=== PATIENT | female | born 1990 | race Caucasian/White ===

== ENCOUNTER 2018-10-16 13:58 | Emergency (ER) | payer SELFPAY ==
[~2018-10-16] VITALS: Ht 170.2 cm; Wt 77.1 kg
--- OUTSIDE RECORDS SUMMARY | 2018-10-16 14:04 | XMS REPORT ---
Author Author Carmen Jeff Organization [facility] Address [address] [place], [place] [address] Care Team Providers Care Finishing Range Feeder Name Role Phone Carmen Jeff PCP Unavailable Allergies and Adverse Reactions Name Reaction Notes No known drug allergy Plan of Treatment Not available. Medications Active Name Start Date Estimated Completion Date SIG Comments amoxicillin 500 mg oral tablet 05/14/2015 05/24/2015 take 2 tablet by oral route 2 times a day for 10 days albuterol sulfate 2.5 mg /3 mL (0.083 %) inhalation solution for nebulization 05/14/2015 05/28/2015 inhale 3 milliliters (2.5 mg) by nebulization route every 6 hours for 7 days Name Start Date Expiration Date SIG Comments azithromycin 500 mg oral tablet 04/05/2015 04/08/2015 take 1 tablet (500 mg) by oral route once daily for 3 days codeine-guaifenesin 10-100 mg/5 mL oral liquid 04/05/2015 take 10 milliliters by oral route every 4 hours as needed Problem List Not available. Vital Signs Date Time BP-Sys(mm[Hg] BP-Rowan(mm[Hg]) HR(bpm) RR(rpm) Temp WT HT HC BMI BSA BMI Percentile O2 Sat(%) 05/14/2015 3:01:00 PM 140 mmHg 90 mmHg 106 bpm 18 rpm 99.1 F 168.125 lbs 67 in 26.33 kg/m2 1.90 m2 98 % 04/05/2015 11:54:00 AM 120 mmHg 80 mmHg 100 bpm 18 rpm 98.4 F 164.375 lbs 67 in 25.7445 kg/m 1.8774 m 97 % Social History Name Description Comments Tobacco Former smoker was an occasional smoker Alcohol Former occassionally drank in the past Caffeine Current every day 2 cups/glass per day History of Procedures Not available. Results Summary Not available. History Of Immunizations Not available. History of Past Illness Name Date of Onset Comments Anxiety Asthma Acute bacterial rhinosinusitis May 14 2015 3:03PM Payers Not available. History of Encounters Visit Date Visit Type Provider 05/14/2015 Office visit Carmen Jeff APRN 04/05/2015 Office visit Mrevat Dumont APRN
--- OUTSIDE RECORDS SUMMARY | 2018-10-16 14:04 | XMS REPORT ---
Author Author Carmen Jeff Organization [facility] Address [address] [place], [place] [address] Care Team Providers Care Atomic Fuel Assembler Name Role Phone Carmen Jeff PCP Unavailable Allergies and Adverse Reactions Name Reaction Notes No known drug allergy Plan of Treatment Planned Activity Comments Planned Date Planned Time Plan/Goal URINE TEST 05/26/2015 12:00 AM Medications Active Name Start Date Estimated Completion Date SIG Comments Keflex 500 mg oral capsule 05/26/2015 06/05/2015 take 1 capsule by oral route every 8 hours for 10 days prednisone 20 mg oral tablet 05/26/2015 06/02/2015 take 1 tablet (20 mg) by oral route 3 times per day for 7 days montelukast 10 mg oral tablet 05/26/2015 11/22/2015 take 1 tablet (10 mg) by oral route once daily in the evening for 30 days albuterol sulfate 2.5 mg /3 mL (0.083 %) inhalation solution for nebulization 05/26/2015 06/09/2015 inhale 3 milliliters (2.5 mg) by nebulization route every 6 hours for 7 days Name Start Date Expiration Date SIG Comments azithromycin 500 mg oral tablet 04/05/2015 04/08/2015 take 1 tablet (500 mg) by oral route once daily for 3 days codeine-guaifenesin 10-100 mg/5 mL oral liquid 04/05/2015 take 10 milliliters by oral route every 4 hours as needed amoxicillin 500 mg oral tablet 05/14/2015 05/24/2015 take 2 tablet by oral route 2 times a day for 10 days Problem List Not available. Vital Signs Date Time BP-Sys(mm[Hg] BP-Rowan(mm[Hg]) HR(bpm) RR(rpm) Temp WT HT HC BMI BSA BMI Percentile O2 Sat(%) 05/29/2015 4:45:00 PM 117 mmHg 83 mmHg 87 bpm 20 rpm 98 F 170 lbs 97 % 05/26/2015 4:43:00 PM 120 mmHg 80 mmHg 85 bpm 18 rpm 99.2 F 169.4 lbs 67 in 26.5315 kg/m 1.9059 m 96 % 05/14/2015 3:01:00 PM 140 mmHg 90 mmHg [...] 2 cups/glass per day History of Procedures Date Ordered Description Order Status 05/26/2015 12:00 AM COMPLETE CBC W/AUTO DIFF WBC Returned 05/26/2015 12:00 AM COMPREHEN METABOLIC PANEL Returned 05/26/2015 12:00 AM CHEST X-RAY 2VW FRONTAL&LATL Returned Results Summary Data and Description Results 05/26/2015 3:23 PM GLUCOSE 101.0 mg/dLSODIUM 138.0 mmol/LPOTASSIUM 3.90 mmol/LCHLORIDE 110.0 mmol/LCO2 19.0 mmol/LBUN 8.0 mg/dLCREATININE 0.70 mg/dLSGOT/AST 15.0 IU/LSGPT/ALT 14.0 IU/LALK PHOS 78.0 IU/LTOTAL PROTEIN 6.70 g/dLALBUMIN 4.30 g/dLTOTAL BILI 0.30 mg/dLCALCIUM 9.40 mg/dLeGFR >60 mL/min/1.73mWBC 8.3 RBC 4.37 HGB 12.60 g/dLHCT 37.60 %MCV 86.0 fLMCH 28.80 pgMCHC 33.50 g/dLRDW CV 14.50 %MPV 10.30 fLPLT 413 %NEUT 41.50 %%LYMP 27.80 %%MONO 8.50 %%EOS 21.20 %%BASO 1.0 %#NEUT 3.45 #LYMP 2.31 #MONO 0.71 #EOS 1.76 #BASO 0.08 History Of Immunizations Not available. History of Past Illness Name Date of Onset Comments Anxiety Asthma Acute bacterial rhinosinusitis May 14 2015 3:03PM Bronchitis, Acute May 26 2015 4:45PM Asthma exacerbation May 26 2015 4:45PM Bronchitis, Acute May 29 2015 4:47PM Asthma exacerbation May 29 2015 4:47PM Cough Apr 05 2015 11:56AM URI (upper respiratory infection) Apr 05 2015 11:56AM Payers Not available. History of Encounters Visit Date Visit Type Provider 05/29/2015 Office visit Carmen Jeff APRN 05/26/2015 Office visit Carmen Jeff APRN 05/14/2015 Office visit Carmen Jeff APRN 04/05/2015 Office visit Mervat Dumont APRN
--- OUTSIDE RECORDS SUMMARY | 2018-10-16 14:04 | XMS REPORT ---
Author Mervat Choi [facility] Address [address] [place], [place] [address] Care Team Providers Care Electrician Underground Name Role Phone Mervat Dumont PCP Unavailable Allergies and Adverse Reactions Name Reaction Notes No known drug allergy Plan of Treatment Planned Activity Comments Planned Date Planned Time Plan/Goal URINE TEST 05/26/2015 12:00 AM Medications Active Name Start Date Estimated Completion Date SIG Comments montelukast 10 mg oral tablet 05/26/2015 11/22/2015 take 1 tablet (10 mg) by oral route once daily in the evening for 30 days codeine-guaifenesin 10-100 mg/5 mL oral liquid 09/20/2015 take 10 milliliters by oral route every 4 hours as needed prednisone 20 mg oral tablet 09/20/2015 Take 2 tablets daily for 5 days albuterol sulfate 2.5 mg /3 mL (0.083 %) inhalation solution for nebulization 09/20/2015 10/04/2015 inhale 3 milliliters (2.5 mg) by nebulization route every 6 hours for 7 days Advair Diskus 250-50 mcg/dose inhalation blister with device 09/20/2015 inhale 1 puff by inhalation route 2 times per day in the morning and evening approximately 12 hours apart Name Start Date Expiration Date SIG Comments [...] 2 times a day for 10 days Keflex 500 mg oral capsule 05/26/2015 06/05/2015 take 1 capsule by oral route every 8 hours for 10 days prednisone 20 mg oral tablet 05/26/2015 06/02/2015 take 1 tablet (20 mg) by oral route 3 times per day for 7 days Problem List Not available. Vital Signs Date Time BP-Sys(mm[Hg] BP-Rowan(mm[Hg]) HR(bpm) RR(rpm) Temp WT HT HC BMI BSA BMI Percentile O2 Sat(%) 09/20/2015 11:20:00 AM 122 mmHg 85 mmHg 102 bpm 20 rpm 97.8 F 160.2 lbs 67 in 25.09 kg/m2 1.85 m2 96 % 05/29/2015 4:45:00 PM 117 mmHg 83 mmHg 87 bpm 20 rpm 98 F 170 lbs 97 % 05/26/2015 4:43:00 PM 120 mmHg 80 mmHg 85 bpm 18 rpm 99.2 F 169.4 lbs 67 in 26.53 kg/m2 1.91 m2 96 % 05/14/2015 3:01:00 PM 140 mmHg 90 mmHg 106 bpm 18 rpm 99.1 F 168.125 lbs 67 in 26.3318 kg/m 1.8987 m 98 % 04/05/2015 11:54:00 AM 120 mmHg 80 mmHg 100 bpm 18 rpm 98.4 F 164.375 lbs 67 in 25.74 kg/m2 1.88 m2 97 % Social History Name Description Comments [...] (upper respiratory infection) Apr 05 2015 11:56AM Acute Asthma Sep 20 2015 11:25AM Cough Sep 20 2015 11:25AM Wheezing Sep 20 2015 11:25AM Payers Not available. History of Encounters Visit Date Visit Type Provider 09/20/2015 Office visit Mervat Dumont APRN 05/29/2015 Office visit Carmen Jeff APRN 05/26/2015 Office visit Carmen Jeff APRN 05/14/2015 Office visit Carmen Jeff APRN 04/05/2015 Office visit Mervat Dumont APRN
--- OUTSIDE RECORDS SUMMARY | 2018-10-16 14:05 | XMS REPORT ---
Author Author Mervat Dumont [facility] Address [address] [place], [place] [address] Care Team Providers Care Driving School Instructor Name Role Phone Mervat Dumont PCP Unavailable [...] oral route every 4 hours as needed albuterol sulfate 2.5 mg /3 mL (0.083 %) inhalation solution for nebulization 10/03/2015 03/31/2016 USE ONE VIAL IN NEBULIZER EVERY 6 HOURS FOR 7 DAYS for 60 days prednisone 20 mg oral tablet 10/18/2015 Take 2 tablets daily for 5 days Breo Ellipta 100-25 mcg/dose inhalation blister with device 10/18/2015 inhale 1 puff by inhalation route once daily at the same time each day Name Start Date Expiration Date SIG Comments [...] 3 times per day for 7 days albuterol sulfate 2.5 mg /3 mL (0.083 %) inhalation solution for nebulization 09/20/2015 10/04/2015 inhale 3 milliliters (2.5 mg) by nebulization route every 6 hours for 7 days Discontinued Name Start Date Discontinued Date SIG Comments Advair Diskus 250-50 mcg/dose inhalation blister with device 09/20/2015 10/18/2015 inhale 1 puff by inhalation route 2 times per day in the morning and evening approximately 12 hours apart Ran out and cannot afford prescription Problem List Description Status Onset Anxiety Active Asthma Active Vital Signs Date Time BP-Sys(mm[Hg] BP-Rowan(mm[Hg]) HR(bpm) RR(rpm) Temp WT HT HC BMI BSA BMI Percentile O2 Sat(%) 10/18/2015 1:53:00 PM 120 mmHg 62 mmHg 94 bpm 22 rpm 97.2 F 158 lbs 67 in 24.75 kg/m2 1.84 m2 95 % 09/20/2015 11:20:00 AM 122 mmHg 85 mmHg 102 bpm 20 rpm 97.8 F 160.2 lbs 67 in 25.0906 kg/m 1.8534 m 96 % 05/29/2015 4:45:00 PM 117 mmHg [...] 2015 11:25AM Wheezing Sep 20 2015 11:25AM Acute Asthma Oct 18 2015 2:02PM Cough Oct 18 2015 2:02PM Wheezing Oct 18 2015 2:02PM Payers Not available. History of Encounters Visit Date Visit Type Provider 10/18/2015 Office visit Mervat Dumont LIGHTING ENGINEER 09/20/2015 Office visit Mervat Dumont LIGHTING ENGINEER 05/29/2015 Office visit Carmen Jeff LIGHTING ENGINEER 05/26/2015 Office visit Carmen Jeff LIGHTING ENGINEER 05/14/2015 Office visit Carmen Jeff LIGHTING ENGINEER 04/05/2015 Office visit Mervat Dumont APRN
--- OUTSIDE RECORDS SUMMARY | 2018-10-16 14:05 | XMS REPORT ---
Author Author Carmen Jeff Organization [facility] Address [address] [place], [place] [address] Care Team Providers Care Tool Keeper Name Role Phone Carmen Jeff PCP Unavailable [...]
--- OUTSIDE RECORDS SUMMARY | 2018-10-16 14:05 | XMS REPORT ---
Author Author Jose Manuel Pace Organization [facility] Address [address] [place], [place] [address] Care Team Providers Care Show Worker Name Role Phone Jose Manuel Pace PCP Unavailable Allergies and Adverse Reactions Name Reaction Notes No known drug allergy Plan of Treatment Planned Activity Comments Planned Date Planned Time Plan/Goal URINE TEST 05/26/2015 12:00 AM Medications Active Name Start Date Estimated Completion Date SIG Comments albuterol sulfate 2.5 mg /3 mL (0.083 %) inhalation solution for nebulization 10/03/2015 03/31/2016 USE ONE VIAL IN NEBULIZER EVERY 6 HOURS FOR 7 DAYS for 60 days Breo Ellipta 100-25 mcg/dose inhalation blister with device 12/01/2015 inhale 1 puff by inhalation route once daily at the same time each day prednisone 20 mg oral tablet 12/01/2015 12/06/2015 take 2 tablets (40 mg) by oral route once daily for 5 days Name Start Date Expiration Date SIG [...] Name Start Date Discontinued Date SIG Comments codeine-guaifenesin 10-100 mg/5 mL oral liquid 09/20/2015 12/01/2015 take 10 milliliters by oral route every 4 hours as needed Advair Diskus 250-50 mcg/dose inhalation blister with device 09/20/2015 10/18/2015 inhale 1 puff by inhalation route 2 times per day in the morning and evening approximately 12 hours apart Ran out and cannot afford prescription prednisone 20 mg oral tablet 10/18/2015 12/01/2015 Take 2 tablets daily for 5 days Problem List Description Status Onset Anxiety Active Asthma Active Vital Signs Date Time BP-Sys(mm[Hg] BP-Rowan(mm[Hg]) HR(bpm) RR(rpm) Temp WT HT HC BMI BSA BMI Percentile O2 Sat(%) 12/01/2015 3:39:00 PM 118 mmHg 70 mmHg 89 bpm 20 rpm 97.6 F 163.2 lbs 67 in 25.56 kg/m2 1.87 m2 97 % 10/18/2015 1:53:00 PM 120 mmHg 62 mmHg 94 bpm 22 rpm 97.2 F 158 lbs 67 in 24.746 kg/m 1.8406 m 95 % 09/20/2015 11:20:00 AM 122 mmHg [...] 2015 2:02PM Wheezing Oct 18 2015 2:02PM Acute asthma Dec 01 2015 3:52PM Cough Dec 01 2015 3:52PM Wheezing Dec 01 2015 3:52PM Payers Not available. History of Encounters Visit Date Visit Type Provider 12/01/2015 Office visit Jose Manuel Pace APRN 10/18/2015 Office visit Mervat Dumont APRN 09/20/2015 Office visit Mervat Dumont APRN 05/29/2015 Office visit Carmen Jeff APRN 05/26/2015 Office visit Carmen Jeff APRN 05/14/2015 Office visit Carmen Jeff APRN 04/05/2015 Office visit Mervat Dumont APRN
--- OUTSIDE RECORDS SUMMARY | 2018-10-16 14:05 | XMS REPORT ---
Author Author Jose Manuel Pace Organization [facility] Address [address] [place], [place] [address] Care Team Providers Care Frame Hand Name Role Phone Jose Manuel Pace PCP [...] daily at the same time each day amoxicillin 500 mg oral capsule 12/25/2015 01/04/2016 take 1 capsule (500 mg) by oral route every 8 hours for 10 days Name Start Date Expiration Date SIG [...] route every 6 hours for 7 days prednisone 20 mg oral tablet 12/01/2015 12/06/2015 take 2 tablets (40 mg) by oral route once daily for 5 days Discontinued Name Start Date Discontinued Date [...] HC BMI BSA BMI Percentile O2 Sat(%) 12/25/2015 4:22:00 PM 140 mmHg 90 mmHg 102 bpm 22 rpm 98.1 F 161.375 lbs 66 in 26.05 kg/m2 1.85 m2 96 % 12/01/2015 3:39:00 PM 118 mmHg 70 mmHg 89 bpm 20 rpm 97.6 F 163.2 lbs 67 in 25.5605 kg/m 1.8707 m 97 % 10/18/2015 1:53:00 PM 120 mmHg [...] 2015 3:52PM Wheezing Dec 01 2015 3:52PM Asthma Dec 25 2015 4:25PM Sinusitis Dec 25 2015 4:25PM Payers Not available. History of Encounters Visit Date Visit Type Provider 12/25/2015 Office visit Jose Manuel Pace APRN 12/01/2015 Office visit Jose Manuel Pace APRN 10/18/2015 Office visit Mervat Dumont APRN 09/20/2015 Office visit Mervat Dumont APRN 05/29/2015 Office visit Carmen Jeff APRN 05/26/2015 Office visit Carmen Jeff APRN 05/14/2015 Office visit Carmen Jeff APRN 04/05/2015 Office visit Mervat Dumont APRN
--- OUTSIDE RECORDS SUMMARY | 2018-10-16 14:06 | XMS REPORT ---
Author Author ABI IRAHETA [facility] Address [address] [place] [address] Care Team Providers Care Environmental Change Analyst Name Role Phone ABI IRAHETA Unavailable PROBLEMS Type Condition ICD9-CM Code [id number] Code Onset Dates Condition Status SNOMED Code Problem Moderate persistent asthma without complication J45.40 Active 220198011 Problem Moderate episode of recurrent major depressive disorder F33.1 Active 001099849 Problem Depression F32.9 Active 41510730 Problem Methamphetamine abuse F15.10 Active 625078413 Problem Alcohol use disorder, severe, dependence F10.20 Active 334868096 Problem Opioid use disorder, severe, dependence F11.20 Active 23628431 Problem Benzodiazepine abuse F13.10 Active 460525645 ALLERGIES No Information ENCOUNTERS Encounter Location Date Diagnosis [facility] [address], [place] [address] Jun, [facility] [address] [place] [address] Jun, [facility] [id number], [place] [address] Jun, Depression F32.9 [facility] [address], [place] [address] May, [facility] [id number], [place] [address] Apr, Moderate episode of recurrent major depressive disorder F33.1 and Encounter for female control Z30.019 [facility] [address], [place] [address] Apr, Moderate episode of recurrent major depressive disorder F33.1 [facility] [address] [place] [address] Apr, Moderate episode of recurrent major depressive disorder F33.1 [facility] [address], [place] [address] Mar, Submental lymphadenopathy R59.0 [facility] [address], [place] [address] Nov, [facility] [address] [place] [id number] [id number] Sep, [facility] [address] [place] [id number] [id number] Sep, [facility] [address] [place] [id number] [id number] Sep, [facility] [address], [place] [address] 11 Sep, 2017 Opioid use disorder, severe, dependence F11.20 ; Methamphetamine abuse F15.10 ; Alcohol use disorder, severe, dependence F10.20 and Benzodiazepine abuse F13.10 [facility] [address], [place] [address] Sep, [facility] [address] [place] [id number] [id number] Mar, Asthma exacerbation J45.901 and Wheezing R06.2 [facility] [address] [place], [place] [id number] [id number] Mar, Asthma exacerbation J45.901 and Wheezing R06.2 [facility] [address] [id number] Mar, [facility] [address] [place] [id number] [id number] Feb, Moderate persistent asthma without complication J45.40 and Bilateral impacted cerumen H61.23 [facility] [address] [place] [address] [id number] 16 Feb, 2016 Asthma exacerbation J45.901 [facility] [id number] [id number] Feb, Asthma exacerbation J45.901 and Allergic rhinitis, unspecified allergic rhinitis trigger, unspecified rhinitis seasonality J30.9 IMMUNIZATIONS No Known Immunizations SOCIAL HISTORY Never Assessed REASON FOR VISIT Eye Exam PLAN OF CARE VITAL SIGNS MEDICATIONS Unknown Medications RESULTS No Results PROCEDURES No Known procedures INSTRUCTIONS MEDICATIONS ADMINISTERED No Known Medications MEDICAL (GENERAL) HISTORY Type Description Date Medical History asthma Medical History opiate use disorder Medical History depression Medical History anxiety Surgical History section x1 2012 Hospitalization History Hospitalization for surgery only
--- OUTSIDE RECORDS SUMMARY | 2018-10-16 14:06 | XMS REPORT ---
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 Active 660917774 Problem Benzodiazepine abuse F13.10 Active 229744906 Problem Moderate persistent asthma without complication J45.40 Active 201992121 Problem Allergic rhinitis, unspecified allergic rhinitis trigger, unspecified rhinitis seasonality J30.9 Active 15835774 Problem Opioid use disorder, severe, dependence F11.20 Active 27171912 Problem Alcohol use disorder, severe, dependence F10.20 Active 745965433 ALLERGIES No Information ENCOUNTERS Encounter Location Date Diagnosis [facility] [address] [place] [address] 02 Nov, 2017 [facility] [address] [id number] 14 Sep, 2017 [id number] [place] [id number] 13 Sep, 2017 [facility] [id number] [place] [id number] 12 Sep, 2017 [facility] [id number] [place] [address] 11 Sep, 2017 Opioid use disorder, severe, dependence F11.20 ; Methamphetamine abuse F15.10 ; Alcohol use disorder, severe, dependence F10.20 and Benzodiazepine abuse F13.10 [facility] [address] [place] [address] 04 Sep, 2017 [facility] [id number] [place] [id number] Mar, Asthma exacerbation J45.901 and Wheezing R06.2 [place] [address] [facility] [id number] [place] [id number] Mar, Asthma exacerbation J45.901 and Wheezing R06.2 [facility] [place] [address] [facility] [id number] [place] [id number] Mar, [facility] [address] [facility] [id number] [id number] Feb, Moderate persistent asthma without complication J45.40 and Bilateral impacted cerumen H61.23 [facility] [address] [facility] [id number] [place] [id number] 16 Feb, 2016 Asthma exacerbation J45.901 [facility] [address] [facility] [id number] [place] [id number] 14 Feb, 2016 Asthma exacerbation J45.901 and Allergic rhinitis, unspecified allergic rhinitis trigger, unspecified rhinitis seasonality J30.9 IMMUNIZATIONS No Known Immunizations SOCIAL HISTORY Never Assessed REASON FOR VISIT med dispense-Nic Desai PLAN OF CARE VITAL SIGNS MEDICATIONS Unknown Medications RESULTS No Results PROCEDURES No Known procedures INSTRUCTIONS MEDICATIONS ADMINISTERED No Known Medications MEDICAL (GENERAL) HISTORY Type Description Date Medical History asthma Medical History opiate use disorder Medical History depression Medical History anxiety Surgical History section x1 2011 Hospitalization History Hospitalization for surgery only
--- OUTSIDE RECORDS SUMMARY | 2018-10-16 14:06 | XMS REPORT ---
Author Author KEYON BILLY Organization [employer] Address Unknown Phone Unavailable Care Team Providers Care Preload Supervisor Name Role Phone KEYON BILLY CP Unavailable Allergies, Adverse Reactions, Alerts Substance Reaction Event Type N.K.D.A. Info Not Available Non Drug Allergy Problems Problem Type Condition Code Onset Dates Condition Status Problem Asthma exacerbation J45.901 Active Problem Allergic rhinitis, unspecified allergic rhinitis trigger, unspecified rhinitis seasonality J30.9 Active Problem Moderate persistent asthma without complication J45.40 Active Assessment Moderate persistent asthma without complication J45.40 Active Assessment Bilateral impacted cerumen H61.23 Active Medications Medication Code System Code Instructions Start Date End Date Status Dosage Flovent Diskus [facility] [address]-43 50 MCG/BLIST Inhalation Twice a day Feb 16, [address] [facility] [address]-24 10 MG Orally Once a day 1 tablet in the evening Proventil HFA [facility] [address]-23 108 (90 Base) MCG/ACT Inhalation every 4 hrs 2 puffs as needed Procedures Procedure Coding System Code Date EAR IRRIGATION CPT-4 67873 Feb 23, 2016 Office Visit, Est Pt., Level 3 CPT-4 93600 Feb 23, 2016 MEASURE BLOOD OXYGEN LEVEL CPT-4 78588 Feb 23, 2016 Vital Signs Date/Time: Feb 23, 2016 Cardiac Monitoring Heart Rate 68 bpm Weight 150 lbs Height 67 in BMI 23.49 Index Oximetry 98 % Blood Pressure Diastolic 68 mmHg Blood Pressure Systolic 118 mmHg Results Name Result Date Reference Range Unit Abnormality Flag EAR LAVAGE Summary Purpose [employer] Submission
--- OUTSIDE RECORDS SUMMARY | 2018-10-16 14:06 | XMS REPORT ---
Author Author OWEN JIMENEZ Organization [facility] Address [address] [place] [address] Care Team Providers Care Forensic Social Worker Name Role Phone OWEN JIMENEZ Unavailable PROBLEMS Type Condition ICD9-CM Code VTO34-AE Code Onset Dates Condition Status SNOMED Code Problem Moderate persistent asthma without complication J45.40 Active 179587475 Problem Asthma exacerbation J45.901 Active 683225739 Problem Allergic rhinitis, unspecified allergic rhinitis trigger, unspecified rhinitis seasonality J30.9 Active 91062785 ALLERGIES Substance Reaction Event Type Date Status N.K.D.A. Unknown Non Drug Allergy Mar, Unknown SOCIAL HISTORY No smoking Hx information available PLAN OF CARE Activity Details Follow Up Appt tomorrow- recheck lungs Reason: VITAL SIGNS Height 67 in 2016-03-29 Weight 149 lbs 2016-03-29 Temperature 98 degrees Fahrenheit 2016-03-29 Heart Rate 100 bpm 2016-03-29 Respiratory Rate 18 2016-03-29 Oximetry 97 % 2016-03-29 BMI 23.33 kg/m2 2016-03-29 Blood pressure systolic 122 mmHg 2016-03-29 Blood pressure diastolic 74 mmHg 2016-03-29 MEDICATIONS Medication Instructions Dosage Frequency Start Date End Date Duration Status Doxycycline Hyclate 100 MG Orally every 12 hrs 1 tablet 12h Mar, Apr, 10 days Active Singulair 10 MG Orally Once a day 1 tablet in the evening 24h Active Advair Diskus 100-50 MCG/DOSE Inhalation Twice a day 1 puff 12h Mar, Active Proventil HFA 108 (90 Base) MCG/ACT Inhalation every 4 hrs 2 puffs as needed 4h Active PredniSONE 20 mg Orally Once a day starting 03/30/16 2 tablets Mar, Mar, 4 days Active RESULTS No Results PROCEDURES Procedure Date Ordered Related Diagnosis Body Site MEASURE BLOOD OXYGEN LEVEL Mar 29, 2016 SOLUMEDROL (UP TO 125 MG) Mar 29, 2016 Office Visit, Est Pt., Level 3 Mar 29, 2016 THER/PROPH/DIAG INJ, SC/IM Mar 29, 2016 IMMUNIZATIONS Vaccine Route Administration Date Status SOLUMEDROL (UP TO 125 MG) IM Intramuscular Mar 29, 2016 Administered
--- OUTSIDE RECORDS SUMMARY | 2018-10-16 14:06 | XMS REPORT ---
Author Author KENYON SHULTZ [facility] Address [address] [place] [address] Care Team Providers Care Terminal Computer Operator Name Role Phone KENYON SHULTZ Unavailable PROBLEMS Type Condition ICD9-CM Code [id number] Code Onset Dates Condition Status SNOMED Code Problem Asthma exacerbation J45.901 Active 681990658 Problem Methamphetamine abuse F15.10 Active 836255610 Problem Benzodiazepine abuse F13.10 Active 959402730 Problem Moderate persistent asthma without complication J45.40 Active 518087976 Problem Allergic rhinitis, unspecified allergic rhinitis trigger, unspecified rhinitis seasonality J30.9 Active 55609953 Problem Opioid use disorder, severe, dependence F11.20 Active 44728741 Problem Alcohol use disorder, severe, dependence F10.20 Active 728013365 ALLERGIES No Information ENCOUNTERS Encounter Location Date Diagnosis [facility] [address] [phone] 02 Nov, 2017 [place] [address] [id number] 14 Sep, 2017 [place] [address] [id number] 13 Sep, 2017 [place] [address] [id number] 12 Sep, 2017 [facility] [address] [address] 11 Sep, 2017 Opioid use disorder, severe, dependence F11.20 ; Methamphetamine abuse F15.10 ; Alcohol use disorder, severe, dependence F10.20 and Benzodiazepine abuse F13.10 [facility] [address] [place] [id number] [place] [phone] 04 Sep, 2017 [place] [address] [id number] Mar, Asthma exacerbation J45.901 and Wheezing R06.2 [facility] [facility] [address] [facility] [id number] [place] [phone] Mar, Asthma exacerbation J45.901 and Wheezing R06.2 Fanny JACK[place] [address] [facility] [id number] [place] [phone] Mar, [facility] [place] [facility] [address] [facility] [id number] [phone] Feb, Moderate persistent asthma without complication J45.40 and Bilateral impacted cerumen H61.23 [facility] [place] [facility] [address] [facility] [id number] [place] [id number] 16 Feb, 2016 Asthma exacerbation J45.901 [facility] [address] [place] [address] [id number] [id number] 14 Feb, 2016 Asthma exacerbation J45.901 and Allergic rhinitis, unspecified allergic rhinitis trigger, unspecified rhinitis seasonality J30.9 IMMUNIZATIONS No Known Immunizations SOCIAL HISTORY Never Assessed REASON FOR VISIT Requests return call PLAN OF CARE VITAL SIGNS MEDICATIONS Unknown Medications RESULTS No Results PROCEDURES No Known procedures INSTRUCTIONS MEDICATIONS ADMINISTERED No Known Medications MEDICAL (GENERAL) HISTORY Type Description Date Medical History asthma Medical History opiate use disorder Medical History depression Medical History anxiety Surgical History section x1 2011 Hospitalization History Hospitalization for surgery only
--- OUTSIDE RECORDS SUMMARY | 2018-10-16 14:06 | XMS REPORT ---
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 Active 022651391 Problem Benzodiazepine abuse F13.10 Active 269908198 Problem Moderate persistent asthma without complication J45.40 Active 172879946 Problem Allergic rhinitis, unspecified allergic rhinitis trigger, unspecified rhinitis seasonality J30.9 Active 96078187 Problem Opioid use disorder, severe, dependence F11.20 Active 37323317 Problem Alcohol use disorder, severe, dependence F10.20 Active 676962077 ALLERGIES No Information ENCOUNTERS Encounter Location Date Diagnosis [facility] [address] [place] [phone] 02 Nov, 2017 [facility] [address] [id number] 14 Sep, 2017 [place] [address] [place] [id number] [place] [id number] 13 Sep, 2017 [facility] [address] [place] [id number] [place] [id number] 12 Sep, 2017 [facility] [address] [place] [id number] [place] [phone] 11 Sep, 2017 Opioid use disorder, severe, dependence F11.20 ; Methamphetamine abuse F15.10 ; Alcohol use disorder, severe, dependence F10.20 and Benzodiazepine abuse F13.10 [facility] [address] [place] [phone] 04 Sep, 2017 [facility] [address] [place] [id number] [place] [id number] Mar, Asthma exacerbation J45.901 and Wheezing R06.2 [place] [address] [facility] [id number] [place] [phone] Mar, Asthma exacerbation J45.901 and Wheezing R06.2 Fanny LUTS[place] [address] [facility] [id number] [place] [phone] Mar, [facility] [place] [address] [facility] [id number] [place] [phone] Feb, Moderate persistent asthma without complication J45.40 and Bilateral impacted cerumen H61.23 [facility] [address] [facility] [id number] [place] [id number] 16 Feb, 2016 Asthma exacerbation J45.901 [facility] [address] [facility] [id number] [place] [id number] 14 Feb, 2016 Asthma exacerbation J45.901 and Allergic rhinitis, unspecified allergic rhinitis trigger, unspecified rhinitis seasonality J30.9 IMMUNIZATIONS No Known Immunizations SOCIAL HISTORY Never Assessed REASON FOR VISIT Medication management-Dnsantiago,RN PLAN OF CARE VITAL SIGNS MEDICATIONS Medication Instructions Dosage Frequency Start Date End Date Duration Status Proventil HFA 108 (90 Base) MCG/ACT Inhalation every 4 hrs 2 puffs as needed 4h Unknown Lexapro 10 MG Orally Once a day 1 tablet 24h Unknown Singulair 10 MG Orally Once a day 1 tablet in the evening 24h Unknown Morphine Sulfate ER 15 mg Orally on day 1; 2 tablets on day 2; 1 tablet on day 3 3 tablets Sep, Unknown Flovent Diskus 50 MCG/BLIST Inhalation Twice a day 2 puffs 12h 14 Feb, 2016 Unknown Advair Diskus 100-50 MCG/DOSE Inhalation Twice a day 1 puff 12h 08 Mar, 2016 Unknown RESULTS No Results PROCEDURES No Known procedures INSTRUCTIONS MEDICATIONS ADMINISTERED No Known Medications MEDICAL (GENERAL) HISTORY Type Description Date Medical History asthma Medical History opiate use disorder Medical History depression Medical History anxiety Surgical History section x1 2011 Hospitalization History Hospitalization for surgery only
--- OUTSIDE RECORDS SUMMARY | 2018-10-16 14:06 | XMS REPORT ---
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 [address] [place] [phone] 02 Nov, 2017 [facility] [address] [id number] 14 Sep, 2017 [place] [address] [place] [id number] [place] [id number] 13 Sep, 2017 [facility] [address] [place] [id number] [place] [id number] 12 Sep, 2017 [facility] [address] [place] [id number] [place] [phone] 11 Sep, 2017 Opioid use disorder, severe, dependence F11.20 ; Methamphetamine abuse F15.10 ; Alcohol use disorder, severe, dependence F10.20 and Benzodiazepine abuse F13.10 [facility] [address] [place] [phone] 04 Sep, 2017 [facility] [address] [place] [id number] [place] [id number] Mar, Asthma exacerbation J45.901 and Wheezing R06.2 [place] [address] [facility] [id number] [place] [phone] Mar, Asthma exacerbation J45.901 and Wheezing R06.2 Fanny [place] [address] [facility] [id number] [place] [phone] Mar, [facility] [address] [facility] [id number] [phone] Feb, Moderate persistent asthma without complication J45.40 and Bilateral impacted cerumen H61.23 [facility] [address] [facility] [id number] [place] [id number] 16 Feb, 2016 Asthma exacerbation J45.901 [facility] [address] [facility] [id number] [place] [id number] 14 Feb, 2016 Asthma exacerbation J45.901 and Allergic rhinitis, unspecified allergic rhinitis trigger, unspecified rhinitis seasonality J30.9 IMMUNIZATIONS No Known Immunizations SOCIAL HISTORY Never Assessed REASON FOR VISIT Medication dispense-PREM Desai PLAN OF CARE VITAL SIGNS MEDICATIONS Unknown Medications RESULTS No Results PROCEDURES No Known procedures INSTRUCTIONS MEDICATIONS ADMINISTERED No Known Medications MEDICAL (GENERAL) HISTORY Type Description Date Medical History asthma Medical History opiate use disorder Medical History depression Medical History anxiety Surgical History section x1 2011 Hospitalization History Hospitalization for surgery only
--- OUTSIDE RECORDS SUMMARY | 2018-10-16 14:06 | XMS REPORT ---
Author Author GLADYS SCOTT Organization [facility] Address [address] 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 [address] [place] [id number] [place] [phone] 02 Nov, 2017 [place] [address] [id number] 14 Sep, [address] [id number] 13 Sep, 2017 [place] [address] [id number] 12 Sep, 2017 [facility] [address] [place] [id number] [place] [phone] 11 Sep, 2017 Opioid use disorder, severe, dependence F11.20 ; Methamphetamine abuse F15.10 ; Alcohol use disorder, severe, dependence F10.20 and Benzodiazepine abuse F13.10 [facility] [address] [place] [id number] [place] [address] 04 Sep, 2017 [place] [address] [id number] Mar, Asthma exacerbation J45.901 and Wheezing R06.2 [facility] [address] [facility] [id number] [place] [id number] Mar, Asthma exacerbation J45.901 and Wheezing R06.2 Fanny [place] [address] [facility] [id number] [place] [phone] Mar, [facility] [place] [address] [facility] [id number] [place] [phone] Feb, Moderate persistent asthma without complication J45.40 and Bilateral impacted cerumen H61.23 [facility] [address] [facility] [id number] [place] [id number] 16 Feb, 2016 Asthma exacerbation J45.901 [facility] [address] [facility] [id number] [place] [id number] 14 Feb, 2016 Asthma exacerbation J45.901 and Allergic rhinitis, unspecified allergic rhinitis trigger, unspecified rhinitis seasonality J30.9 IMMUNIZATIONS No Known Immunizations SOCIAL HISTORY Never Assessed REASON FOR VISIT MAT Assessment, pt drank alcohol (approx 10 shots of captain manuel) and used me th and hydros in the middle of the night; used IV route, pt reports doesnt hardl y ever use meth, 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 pa in pills, had klonopin 2 days ago PLAN OF CARE Activity Details Follow Up 1 Week Reason:start Naltrexone Pending Test HIV (STATE) VITAL SIGNS Height 67 in 2017-09-12 Weight 143.6 lbs 2017-09-12 Temperature 97.6 degrees Fahrenheit 2017-09-12 Heart Rate 116 bpm 2017-09-12 Respiratory Rate 20 2017-09-12 BMI 22.49 kg/m2 2017-09-12 Blood pressure systolic 124 mmHg 2017-09-12 Blood pressure diastolic 70 mmHg 2017-09-12 MEDICATIONS Medication Instructions Dosage Frequency Start Date End Date Duration Status Flovent Diskus 50 MCG/BLIST Inhalation Twice a day 2 puffs 12h 14 Feb, 2016 Not-Taking Singulair 10 MG Orally Once a day 1 tablet in the evening 24h Not-Taking Proventil HFA 108 (90 Base) MCG/ACT Inhalation every 4 hrs 2 puffs as needed 4h Active Lexapro 10 MG Orally Once a day 1 tablet 24h Active Morphine Sulfate ER 15 mg Orally on day 1; 2 tablets on day 2; 1 tablet on day 3 3 tablets Sep, Active Advair Diskus 100-50 MCG/DOSE Inhalation Twice a day 1 puff 12h 08 Mar, 2016 Not-Taking RESULTS No Results PROCEDURES Procedure Date Ordered Result Body Site COMPREHEN METABOLIC PANEL September 12, 2017 COMPLETE CBC W/AUTO DIFF WBC September 12, 2017 VENIPUNCT, ROUTINE* September 12, 2017 No Charge September 12, 2017 INSTRUCTIONS MEDICATIONS ADMINISTERED No Known Medications MEDICAL (GENERAL) HISTORY Type Description Date Medical History asthma Medical History opiate use disorder Medical History depression Medical History anxiety Surgical History section x1 2012 Hospitalization History Hospitalization for surgery only
--- OUTSIDE RECORDS SUMMARY | 2018-10-16 14:06 | XMS REPORT ---
Author Author KEYON BILLY Organization [employer] Address Unknown Phone Unavailable Care Team Providers Care Hand Trucker Name Role Phone KING KEYON CP Unavailable Allergies, Adverse Reactions, Alerts Substance Reaction Event Type N.K.D.A. Info Not Available Non Drug Allergy Problems Problem Type Condition Code Onset Dates Condition Status Problem Allergic rhinitis, unspecified allergic rhinitis trigger, unspecified rhinitis seasonality J30.9 Active Assessment Asthma exacerbation J45.901 Active Problem Asthma exacerbation J45.901 Active Assessment Allergic rhinitis, unspecified allergic rhinitis trigger, unspecified rhinitis seasonality J30.9 Active Medications Medication Code System Code Instructions Start Date End Date Status Dosage Singulair [facility] 2] [address]-07 10 MG Orally Once a day 1 tablet in the evening PredniSONE [facility] [place] 2] [address]-16 20 MG Orally Once a day Feb 16, 2016 Feb 21, 2016 2 tablets Proventil HFA [facility] 2] [address]-59 108 (90 Base) MCG/ACT Inhalation every 4 hrs 2 puffs as needed Flovent Diskus [facility] [place] 2] [address]-02 50 MCG/BLIST Inhalation Twice a day Feb 16, 2016 2 puffs Procedures Procedure Coding System Code Date Office Visit, New Pt., Level 3 CPT-4 03513 Feb 16, 2016 MEASURE BLOOD OXYGEN LEVEL CPT-4 43778 Feb 16, 2016 Vital Signs Date/Time: Feb 16, 2016 Cardiac Monitoring Heart Rate 92 bpm Weight 157 lbs Height 67 in BMI 24.59 Index Oximetry 96 % Blood Pressure Diastolic 82 mmHg Blood Pressure Systolic 130 mmHg Results No Known Results Summary Purpose [employer] Submission
--- OUTSIDE RECORDS SUMMARY | 2018-10-16 14:06 | XMS REPORT ---
Author Author GLADYS SCOTT Organization [facility] Address [address] 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 Active 688537119 Problem Benzodiazepine abuse F13.10 Active 627280095 Problem Moderate persistent asthma without complication J45.40 Active 209881015 Problem Allergic rhinitis, unspecified allergic rhinitis trigger, unspecified rhinitis seasonality J30.9 Active 72094439 Problem Opioid use disorder, severe, dependence F11.20 Active 83102969 Problem Alcohol use disorder, severe, dependence F10.20 Active 802378293 ALLERGIES No Information ENCOUNTERS Encounter Location Date Diagnosis [facility] [address] [place] [id number] [place] [phone] 02 Nov, 2017 [facility] [address] [id number] 14 Sep, 2017 [place] [address] [id number] 13 Sep, 2017 [facility] [address] [id number] 12 Sep, 2017 [facility] [address] [place] [id number] [place] [phone] 11 Sep, 2017 Opioid use disorder, severe, dependence F11.20 ; Methamphetamine abuse F15.10 ; Alcohol use disorder, severe, dependence F10.20 and Benzodiazepine abuse F13.10 [facility] [address] [place] [id number] [place] [phone] 04 Sep, 2017 [place] [address] [id number] Mar, Asthma exacerbation J45.901 and Wheezing R06.2 [facility] [address] [facility] [id number] [place] [id number] Mar, Asthma exacerbation J45.901 and Wheezing R06.2 Fanny [place] [address] [facility] [id number] [place] [phone] Mar, [facility] [address] [facility] [id number] [id number] Feb, Moderate persistent asthma without complication J45.40 and Bilateral impacted cerumen H61.23 [facility] [address] [place] [address] [id number] [place] [id number] 16 Feb, 2016 Asthma exacerbation J45.901 [id number] [id number] 14 Feb, 2016 Asthma exacerbation J45.901 and Allergic rhinitis, unspecified allergic rhinitis trigger, unspecified rhinitis seasonality J30.9 IMMUNIZATIONS No Known Immunizations SOCIAL HISTORY Never Assessed REASON FOR VISIT Lab results PLAN OF CARE VITAL SIGNS MEDICATIONS Unknown Medications RESULTS No Results PROCEDURES No Known procedures INSTRUCTIONS MEDICATIONS ADMINISTERED No Known Medications MEDICAL (GENERAL) HISTORY Type Description Date Medical History asthma Medical History opiate use disorder Medical History depression Medical History anxiety Surgical History section x1 2011 Hospitalization History Hospitalization for surgery only
--- OUTSIDE RECORDS SUMMARY | 2018-10-16 14:06 | XMS REPORT ---
Author Author Carmen Jeff Organization [facility] Address [address] [place], [place] [address] Care Team Providers Care Sales Developer Name Role Phone Carmen Jeff PCP Unavailable [...]
--- OUTSIDE RECORDS SUMMARY | 2018-10-16 14:06 | XMS REPORT ---
Author Author Matias Mathis Organization [facility] Address [address] [place] [address] Care Team Providers Care Maintenance Service Technician Name Role Phone Matias Mathis Unavailable PROBLEMS Type Condition ICD9-CM Code ZSA33-QB Code Onset Dates Condition Status SNOMED Code Problem Major depressive disorder, single episode, unspecified F32.9 Active 59673400 ALLERGIES No Known Allergies ENCOUNTERS Encounter Location Date Diagnosis [facility] [address] [place] [address] May, Major depressive disorder, single episode, unspecified F32.9 and Encounter for other general counseling and advice on contraception Z30.09 IMMUNIZATIONS No Known Immunizations SOCIAL HISTORY Never Assessed REASON FOR VISIT establish care, she took depression and anxiety medication a couple of years ago and she would like to start them agaim, wants to start control PLAN OF CARE Activity Details Follow Up 3 Weeks Reason: VITAL SIGNS Height 66.25 in 2017-05-16 Weight 162 lbs 2017-05-16 BMI 25.95 kg/m2 2017-05-16 Heart Rate 60 /min 2017-05-16 Oximetry 98 % 2017-05-16 Respiratory Rate 18 /min 2017-05-16 Blood pressure systolic 110 mm Hg 2017-05-16 Blood pressure diastolic 64 mm Hg 2017-05-16 MEDICATIONS Medication Instructions Dosage Frequency Start Date End Date Duration Status Escitalopram Oxalate 10 MG Orally Once a day 1 tablet 24h May, 30 day(s) Active Pirmella 1/35 1-35 MG-MCG Orally Once a day 1 tablet 24h May, 28 day(s) Active Singulair 10 MG Orally Once a day prn 1 tablet in the evening Active Advair Diskus 250-50 MCG/DOSE Inhalation prn Active RESULTS No Results PROCEDURES No Known procedures INSTRUCTIONS MEDICATIONS ADMINISTERED No Known Medications MEDICAL (GENERAL) HISTORY Type Description Date Medical History depression Medical History anxiety Medical History asthma - mild intermittent Surgical History section X 1 2011
--- OUTSIDE RECORDS SUMMARY | 2018-10-16 14:06 | XMS REPORT ---
Author Author ISA DALTON Organization [facility] Address [address] [address] Care Team Providers Care Senior Devops Engineer Name Role Phone ISA DALTON Unavailable PROBLEMS Type Condition ICD9-CM Code CNZ85-GT Code Onset Dates Condition Status SNOMED Code Problem Moderate persistent asthma without complication J45.40 Active 027051440 Problem Asthma exacerbation J45.901 Active 074873315 Problem Allergic rhinitis, unspecified allergic rhinitis trigger, unspecified rhinitis seasonality J30.9 Active [id number] ALLERGIES Substance Reaction Event Type Date Status N.K.D.A. Unknown Non Drug Allergy Mar, Unknown SOCIAL HISTORY No smoking Hx information available PLAN OF CARE Activity Details Follow Up prn Reason: VITAL SIGNS Height 67 in 2016-03-30 Weight 151 lbs 2016-03-30 Temperature 97.9 degrees Fahrenheit 2016-03-30 Heart Rate 90 bpm 2016-03-30 Respiratory Rate 18 2016-03-30 Oximetry 96 % 2016-03-30 BMI 23.65 kg/m2 2016-03-30 Blood pressure systolic 124 mmHg 2016-03-30 Blood pressure diastolic 72 mmHg 2016-03-30 MEDICATIONS Medication Instructions Dosage Frequency Start Date End Date Duration Status Doxycycline Hyclate 100 MG Orally every 12 hrs 1 tablet 12h Mar, Apr, 10 days Active Singulair 10 MG Orally Once a day 1 tablet in the evening 24h Active Proventil HFA 108 (90 Base) MCG/ACT Inhalation every 4 hrs 2 puffs as needed 4h Active Advair Diskus 100-50 MCG/DOSE Inhalation Twice a day 1 puff 12h Mar, Active PredniSONE 20 mg Orally Once a day starting 03/30/16 2 tablets Mar, Mar, 4 days Active RESULTS No Results PROCEDURES Procedure Date Ordered Related Diagnosis Body Site MEASURE BLOOD OXYGEN LEVEL Mar 30, 2016 Office Visit, Est Pt., Level 3 Mar 30, 2016 IMMUNIZATIONS No Known Immunizations
--- OUTSIDE RECORDS SUMMARY | 2018-10-16 14:07 | XMS REPORT | Continuity of Care Document ---
Author Organization Unknown Address Unknown Allergies There is no data. Medications There is no data. Problems There is no data. Procedures There is no data. Results Test Result Range CBC - 09/12/17 13:32 WHITE BLOOD CELL COUNT 8.7 Thousand/uL 3.8-10.8 RED BLOOD CELL COUNT 4.18 Million/uL 3.80-5.10 HEMOGLOBIN 12.2 g/dL 11.7-15.5 HEMATOCRIT 36.0 % 35.0-45.0 MCV 86.1 fL 80.0-100.0 MCH 29.2 pg 27.0-33.0 MCHC 33.9 g/dL 32.0-36.0 RDW 13.7 % 11.0-15.0 PLATELET COUNT 437 Thousand/uL 140-400 MPV 9.2 fL 7.5-12.5 ABSOLUTE NEUTROPHILS 4602 cells/uL 6740-7345 ABSOLUTE LYMPHOCYTES 3202 cells/uL 850-3900 ABSOLUTE MONOCYTES 722 cells/uL 200-950 ABSOLUTE EOSINOPHILS 104 cells/uL 15-500 ABSOLUTE BASOPHILS 70 cells/uL 0-200 NEUTROPHILS 52.9 % NRG LYMPHOCYTES 36.8 % NRG MONOCYTES 8.3 % NRG EOSINOPHILS 1.2 % NRG BASOPHILS 0.8 % NRG Encounters ACCT No. Visit Date/Time Discharge Status Pt. Type Provider Facility Loc./Unit Complaint [id number] 12/25/2015 16:55:02 12/25/2015 23:59:59 CLS Outpatient Jose Manuel Pace [id number] 12/01/2015 16:37:10 12/01/2015 23:59:59 CLS Outpatient Jose Manuel Pace [id number] 10/18/2015 14:41:33 10/18/2015 23:59:59 CLS Outpatient Mervat Dumont [id number] 05/29/2015 20:52:56 05/29/2015 23:59:59 CLS Outpatient Carmen Jeff [id number] 05/26/2015 17:39:30 05/26/2015 23:59:59 CLS Outpatient Carmen Jeff [id number] 05/14/2015 14:45:27 05/14/2015 23:59:59 CLS Outpatient Carmen Jeff [id number] 04/05/2015 20:41:16 04/05/2015 23:59:59 CLS Outpatient Mervat Dumont [id number] 07/25/2018 08:20:00 07/25/2018 23:59:59 [facility] Outpatient ABI IRAHETA [facility] [id number] 09/12/2017 11:20:00 Document Registration
--- OUTSIDE RECORDS SUMMARY | 2018-10-16 14:07 | XMS REPORT ---
Author Author ALEKS SANDERS [facility] e[employer] Address Unknown Phone Unavailable Care Team Providers Care Associate Professor Of Psychology Name Role Phone ALEKS SANDERS CP Unavailable Allergies, Adverse Reactions, Alerts Substance Reaction Event Type N.K.D.A. Info Not Available Non Drug Allergy Problems Problem Type Condition Code Onset Dates Condition Status Problem Allergic rhinitis, unspecified allergic rhinitis trigger, unspecified rhinitis seasonality J30.9 Active Assessment Asthma exacerbation J45.901 Active Problem Asthma exacerbation J45.901 Active Medications Medication Code System Code Instructions Start Date End Date Status Dosage PredniSONE [facility] [address]-53 20 MG Orally Once a day Feb 16, 2016 Feb 21, 2016 2 tablets Flovent Diskus [facility] [address]-80 50 MCG/BLIST Inhalation Twice a day Feb 16, 2016 2 puffs Singulair [facility] [address]-26 10 MG Orally Once a day 1 tablet in the evening Proventil HFA [facility] [address]-36 108 (90 Base) MCG/ACT Inhalation every 4 hrs 2 puffs as needed Procedures Procedure Coding System Code Date Office Visit, Est Pt., Level 3 CPT-4 24748 Feb 18, 2016 MEASURE BLOOD OXYGEN LEVEL CPT-4 60332 Feb 18, 2016 Vital Signs Date/Time: Feb 18, 2016 Cardiac Monitoring Heart Rate 84 bpm Weight 150.0 lbs Height 67 in BMI 23.49 Index Oximetry 97 % Blood Pressure Diastolic 68 mmHg Blood Pressure Systolic 122 mmHg Results No Known Results Summary Purpose eClinicalWorks Submission
--- OUTSIDE RECORDS SUMMARY | 2018-10-16 14:07 | XMS REPORT ---
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 Name Role Phone Matias Mathis Unavailable PROBLEMS Type Condition ICD9-CM Code JFK43-FH Code Onset Dates Condition Status SNOMED Code Problem Major depressive disorder, single episode, unspecified F32.9 Active [id number] ALLERGIES No Information ENCOUNTERS Encounter Location Date Diagnosis Matias aMthis MD [address] [place] [address] August, Matias Mathis MD [address] [place] [address] 12 May, 2017 Major depressive disorder, single episode, unspecified F32.9 and Encounter for other general counseling and advice on contraception Z30.09 IMMUNIZATIONS No Known Immunizations SOCIAL HISTORY Never Assessed REASON FOR VISIT Records PLAN OF CARE VITAL SIGNS MEDICATIONS Unknown Medications RESULTS No Results PROCEDURES No Known procedures INSTRUCTIONS MEDICATIONS ADMINISTERED No Known Medications MEDICAL (GENERAL) HISTORY Type Description Date Medical History depression Medical History anxiety Medical History asthma - mild intermittent Surgical History section X 1 2011
[2018-10-16] MEDS ORDERED: HYDR-700 PO (14:58)
--- NOTE | 2018-10-16 14:58 | ED EENT ---
History of Present Illness General Chief Complaint: Eye Problems Stated Complaint: EYE SWELLING Nursing Triage Note: PT AMB TO TRIAGE WITH COMPLAINT OF BILATERAL EYE SWELLING. STATES STARTED THIS MORNING AFTER CRYING. STATES HAS HX OF EYE SWELLING AFTER CRYING. Source: patient Exam Limitations: no limitations History of Present Illness Date Seen by Provider: Oct 16, 2018 Time Seen by Provider: 14:56 Initial Comments To ER with reports of bilateral eye swelling after crying today. She has panic attacks and begins to cry and then both of her eyes itch and swell. This has happened 10 times. Typically is treated with steroids and antihistamines and something for anxiety. She also wants a work note. Timing/Duration: abrupt Severity: moderate Location: eye (R), eye (L) Prearrival Treatment: no prearrival treatment Associated Symptoms: denies symptoms Allergies and Home Medications Allergies Coded Allergies: No Known Drug Allergies (Unverified , 10/16/18) Patient Home Medication List Home Medication List Reviewed: Yes Review of Systems Review of Systems Constitutional: see HPI Eyes: See HPI Ears: No Symptoms Reported Nose: no symptoms reported Mouth: no symptoms reported Throat: no symptoms reported Respiratory: no symptoms reported Cardiovascular: no symptoms reported Musculoskeletal: no symptoms reported Skin: no symptoms reported Neurological: No Symptoms Reported Hematologic/Lymphatic: No Symptoms Reported Immunological/Allergic: no symptoms reported Past Bcysrsh-Ojksda-Rqnptu Hx Patient Social History Alcohol Use: Denies Use Recreational Drug Use: No Smoking Status: Former Smoker Recent Foreign Travel: No Contact w/Someone Who Travel: No Recent Infectious Disease Expo: No Recent Hopitalizations: No Seasonal Allergies Seasonal Allergies: No Past Medical History Surgeries: Yes Section Respiratory: No Cardiac: No Neurological: No Genitourinary: No Gastrointestinal: No Musculoskeletal: No Endocrine: No HEENT: No Cancer: No Psychosocial: Yes Anxiety, Depression Integumentary: No Physical Exam Vital Signs Vital Signs - First Documented 10/16/18 14:05 Pulse 96 Resp 17 B/P (MAP) 133/87 (102) Pulse Ox 98 O2 Delivery Room Air Height, Weight, BMI Height: 5'7.00" Weight: 170lbs. oz. 77.402563of; BMI Method:Stated General Appearance: WD/WN, no apparent distress Eyes: bilateral eye PERRL, bilateral eye EOMI, bilateral eye other (no c onjunctival injection, no drainage. There is puffiness of the upper and lower eyelids bilaterally) Ears: bilateral ear auricle normal, bilateral ear canal normal, bilateral ear TM normal Neck: non-tender, full range of motion Respiratory: no respiratory distress, no accessory muscle use Neurologic/Psychiatric: alert, normal mood/affect, oriented x 3 Skin: normal color, warm/dry Progress/Results/Core Measures Results/Orders My Orders Orders - KRYS PRIDE APRN Dexamethasone Injection (Decadron Inject (10/16/18 15:00) Hydroxyzine Oral (Atarax Tablet) (10/16/18 15:00) Vital Signs/I&O 10/16/18 14:05 Pulse 96 Resp 17 B/P (MAP) 133/87 (102) Pulse Ox 98 O2 Delivery Room Air Blood Pressure Mean: 102 Departure Impression Primary Impression: Periorbital edema Disposition: 01 HOME, SELF-CARE Condition: Stable Departure-Patient Inst. Decision time for Depature: 14:57 Patient Instructions: NO INSTRUCTIONS GIVEN Add. Discharge Instructions: 1. Do not apply any eye makeup for the next 2-3 days. The steroid shot given last for 2-3 days. Take the hydroxyzine as directed. If he did not have a regular doctor, you can establish [facility] which does not require insurance or income to be seen. All discharge instructions reviewed with patient and/or family. Voiced understanding. Scripts Hydroxyzine HCl (Hydroxyzine HCl) 25 Mg Tablet 25 MG PO TID PRN for ITCHING, #20 TAB Prov: KRYS PRIDE APRN 10/16/18 Work/School Note: Work Release Form Date Seen in the Emergency Department: Oct 16, 2018 Return to Work: Oct 18, 2018 KRYS PRIDE APRN Oct 16, 2018 14:58
[2018-10-16] MEDS ORDERED: hydrOXYzine (ATARAX) 10 MG TAB PO ONE (15:00)
[2018-10-16] MEDS ORDERED: DEXAMETHASONE 10 MG/ML (DECADRON) 1 ML VIAL IM ONE (15:00)
[2018-10-16] MEDS ORDERED: hydrOXYzine (VISTARIL/ATARAX) 25 MG capsule/tablet ONE (15:04)
[2018-10-16 15:14] VITALS: BP 133/87
[2018-10-16] MEDS ORDERED: hydrOXYzine (VISTARIL/ATARAX) 25 MG capsule/tablet PO ONE (15:15)
== END 2018-10-16 15:10 | disposition home or self-care (01) ==
LOC: ER 14:00
DX: H05.223 Edema of bilateral orbit (principal); F41.9 Anxiety disorder, unspecified; F32.9 Major depressive disorder, single episode, unspecified; Z87.891 Personal history of nicotine dependence
CPT/HCPCS: 96372; 99284

== ENCOUNTER 2019-04-09 19:39 | Emergency (ER) | payer MEDICAID, OTHER ==
[~2019-04-09] VITALS: Ht 170.2 cm; Wt 72.6 kg
[~2019-04-09 19:39] MED LIST: HYDR-700 PO
[2019-04-09] MEDS ORDERED: CLINDAMYCIN 300 MG/2ML (CLEOCIN) VIAL IM SCH (20:00)
[2019-04-09] MEDS ORDERED: CLIN300C11 PO (20:04)
--- NOTE | 2019-04-09 20:04 | ED EENT ---
History of Present Illness General Chief Complaint: Dental Problems/Pain Stated Complaint: DENTAL PAIN/6 MO PREG Nursing Triage Note: PT AMBULATE TO TRIAGE WITH C/O RIGHT SIDED DENTAL PAIN X3-4 DAYS. PT STATES SHE HAS A BROKEN WISDOM TOOTH AND WAS GOING TO GO TO THE CLINIC TOMORROW BUT DIDN'T WANT TO WAIT UNTIL THEN. Source: patient Exam Limitations: no limitations History of Present Illness Date Seen by Provider: Apr 09, 2019 Time Seen by Provider: 19:59 Initial Comments Intermittent right lower jaw pain for several months, consistent for 3 days. Sw elling to the right side of her jaw starting today. No fevers or chills. 6 months . Timing/Duration: abrupt Severity: moderate Location: dental Prearrival Treatment: prescription meds (left over amoxicillin intermittently for the past 3 days) Associated Symptoms: denies symptoms Allergies and Home Medications Allergies Coded Allergies: No Known Drug Allergies (Unverified , 10/16/18) Home Medications Hydroxyzine HCl 25 Mg Tablet, 25 MG PO TID PRN for ITCHING Prescribed by: KRYS PRIDE on 10/16/18 4810 Patient Home Medication List Home Medication List Reviewed: Yes Review of Systems Review of Systems Constitutional: see HPI Eyes: No Symptoms Reported Ears: No Symptoms Reported Nose: no symptoms reported Mouth: see HPI Throat: no symptoms reported Respiratory: no symptoms reported Cardiovascular: no symptoms reported Musculoskeletal: no symptoms reported Past Ihdhwjx-Ecajux-Uotrwm Hx Patient Social History Alcohol Use: Denies Use Recreational Drug Use: No Smoking Status: Never a Smoker 2nd Hand Smoke Exposure: No Recent Foreign Travel: No Contact w/Someone Who Travel: No Recent Infectious Disease Expo: No Recent Hopitalizations: No Physical Abuse: No Sexual Abuse: No Mistreated: No Fear: No Seasonal Allergies Seasonal Allergies: No Past Medical History Surgeries: Yes Section Respiratory: No Cardiac: No Neurological: No Genitourinary: No Gastrointestinal: No Musculoskeletal: No Endocrine: No HEENT: No Cancer: No Psychosocial: Yes Anxiety, Depression Integumentary: No Physical Exam Vital Signs Vital Signs - First Documented 04/09/19 19:46 Temp 36.8 B/P (MAP) 116/73 (87) O2 Delivery Room Air Height, Weight, BMI Height: 5'7.00" Weight: 170lbs. oz. 77.019504my; 25.00 BMI Method:Stated General Appearance: WD/WN, no apparent distress Eyes: bilateral eye normal inspection, bilateral eye PERRL, bilateral eye EOMI Ears: bilateral ear auricle normal, bilateral ear canal normal, bilateral ear TM normal Nose: normal inspection Mouth/Throat: mandibular swelling (right-sided mild. On the buccal surface there is no palpable fluctuant abscess.) Neck: non-tender, full range of motion, lymphadenopathy (R) Respiratory: no respiratory distress, no accessory muscle use Neurologic/Psychiatric: alert, normal mood/affect, oriented x 3 Skin: normal color, warm/dry Progress/Results/Core Measures Results/Orders My Orders Orders - KRYS PRIDE APRN Clindamycin Injection (Cleocin Injection (04/09/19 20:00) Vital Signs/I&O 04/09/19 19:46 Temp 36.8 B/P (MAP) 116/73 (87) O2 Delivery Room Air Blood Pressure Mean: 87 Departure Impression Primary Impression: Dental abscess Disposition: 01 HOME, SELF-CARE Condition: Stable Departure-Patient Inst. Decision time for Depature: 20:01 Referrals: KENNY CABRERA MD (PCP/Family) Primary Care Physician Patient Instructions: Tooth Abscess (DC) Add. Discharge Instructions: Antibiotics as directed. Call your dentist tomorrow to make an appointment to be seen. Expect reduction in the size of the swelling and discomfort to occur within the next 36 hours. It will not be immediate. Return to ER for any concerns. Scripts Clindamycin HCl (Clindamycin HCl) 300 Mg Capsule 300 MG PO TID, #21 CAP Prov: KRYS PRIDE APRN 04/09/19 KRYS PRIDE APRN Apr 09, 2019 20:04
[2019-04-09 20:18] VITALS: BP 120/71
[2019-04-15] MEDS ORDERED: ALBU2.5V4 INH (11:31)
[2019-04-15] MEDS ORDERED: PRD20T PO (11:31)
[2019-04-15] MEDS ORDERED: AMOX1TAB12 PO (11:31)
[2019-04-15] MEDS ORDERED: BUDE90AE2 IH (11:31)
[2019-04-15] MEDS ORDERED: BUDE0.5A INH (11:31)
[2019-04-15] MEDS ORDERED: RT-ALBUINH IH (11:31)
== END 2019-04-09 20:18 | disposition home or self-care (01) ==
LOC: EDUNIT# 19:39 → ER 19:41
DX: O99.612 Diseases of the digestive system complicating pregnancy, second trimester (principal); K04.7 Periapical abscess without sinus; O99.342 Other mental disorders complicating pregnancy, second trimester; F41.9 Anxiety disorder, unspecified; F32.9 Major depressive disorder, single episode, unspecified; Z3A.00 Weeks of gestation of pregnancy not specified
CPT/HCPCS: 96372; 99284

== ENCOUNTER 2019-04-13 13:09 | Observation (INO) | payer MEDICAID ==
[~2019-04-13] VITALS: Ht 170.2 cm; Wt 75.5 kg
[~2019-04-13 13:09] MED LIST changes: +CLIN300C11 PO
[2019-04-13] MEDS ORDERED: RT-ALBUTEROL SULF 2.5 MG/3 ML PRE-MIX VIAL INH STA (13:14)
[2019-04-13 13:24] LABS: BASOPHILS # (AUTO) 0.1 10^3/uL (0.0-0.1); BASOPHILS % (AUTO) 0 % (0-10); EOSINOPHILS # (AUTO) 1.4 10^3/uL (0.0-0.3); EOSINOPHILS % (AUTO) 11 % (0-10); HEMATOCRIT 30 % (35-52); HEMOGLOBIN 10.1 G/DL (11.5-16.0); LYMPHOCYTES % (AUTO) 15 % (12-44); MEAN CORPUSCULAR HEMOGLOBIN 28 PG (25-34); MEAN CORPUSCULAR HGB CONC 33 G/DL (32-36); MEAN CORPUSCULAR VOLUME 84 FL (80-99); MEAN PLATELET VOLUME 8.4 FL (7.4-10.4); MONOCYTES # (AUTO) 0.6 X 10^3 (0.0-1.0); MONOCYTES % (AUTO) 5 % (0-12); NEUTROPHILS # (AUTO) 8.7 X 10^3 (1.8-7.8); NEUTROPHILS % (AUTO) 69 % (42-75); PLATELET COUNT 450 10^3/uL (130-400); RED CELL DISTRIBUTION WIDTH 14.7 % (10.0-14.5); WHITE BLOOD COUNT 12.7 10^3/uL (4.3-11.0)
[2019-04-13 13:27] LABS: ABG BASE EXCESS -6.4 MMOL/L (-2.5-2.5); ABG OXYGEN SATURATION 93 % (94-100); ABG PCO2 23 MMHG (35-45); ABG PH 7.47 (7.37-7.43); ABG PO2 145 MMHG (79-93); ABG TCO2 17.4 MMOL/L (21.0-31.0)
[2019-04-13 13:28] LABS: PATIENT TEMP 36.3
--- NOTE | 2019-04-13 13:29 | ED Respiratory ---
General Stated Complaint: SOA Source: patient Exam Limitations: no limitations History of Present Illness Date Seen by Provider: Apr 13, 2019 Time Seen by Provider: 13:13 Initial Comments Patient presents to ER by private conveyance with chief complaint for this week she's had progressively worsening shortness of breath wheezing or productive cough but no fevers. She has a history of asthma and denies ever smoking. She is a at [address] Cabrera. She was here Tuesday, 5 days ago for dental abscess and was started on clindamycin which she feels has not improved either. She ran out of her albuterol inhaler sometime around 2:00 last night. She does not have a nebulizer. She's not having any pain, contractions, loss of fluids, bleeding or discharge. Allergies and Home Medications Allergies Coded Allergies: No Known Drug Allergies (Unverified , 10/16/18) Home Medications Clindamycin HCl 300 Mg Capsule, 300 MG PO TID Prescribed by: KRYS PRIDE on 04/09/192003 Hydroxyzine HCl 25 Mg Tablet, 25 MG PO TID PRN for ITCHING Prescribed by: KRYS PRIDE on 10/16/18 6188 Patient Home Medication List Home Medication List Reviewed: Yes Review of Systems Review of Systems Constitutional: No chills, No diaphoresis EENTM: No ear discharge, No ear pain Respiratory: cough, phlegm, short of breath, wheezing Cardiovascular: No chest pain, No edema Gastrointestinal: No abdominal pain, No constipation, No nausea, No vomiting Genitourinary: No discharge, No dysuria Musculoskeletal: No back pain, No joint pain All Other Systems Reviewed Negative Unless Noted: Yes Past Npstaao-Bvcisk-Xuoblq Hx Patient Social History Alcohol Use: Denies Use Recreational Drug Use: No Smoking Status: Never a Smoker 2nd Hand Smoke Exposure: No Recent Hopitalizations: No Seasonal Allergies Seasonal Allergies: No Past Medical History Surgeries: Yes Section Respiratory: No Cardiac: No Neurological: No Genitourinary: No Gastrointestinal: No Musculoskeletal: No Endocrine: No HEENT: No Cancer: No Psychosocial: Yes Anxiety, Depression Integumentary: No Physical Exam Vital Signs - First Documented 04/13/19 13:15 Temp 36.3 Pulse 120 Resp 18 B/P (MAP) 129/90 (103) Pulse Ox 98 O2 Delivery Room Air Capillary Refill : Height: 5'7.00" Weight: 170lbs. oz. 77.523588oz; 25.00 BMI Method:Stated General Appearance: WD/WN, mild distress Eyes: Bilateral Eye Normal Inspection, Bilateral Eye PERRL, Bilateral Eye EOMI HEENT: PERRL/EOMI, normal ENT inspection, TMs normal, pharynx normal Neck: full range of motion, supple, normal inspection Respiratory: respiratory distress (mild), decreased breath sounds, accessory muscle use (mild respiratory rate of 30), rales (bilateral bases), wheezing Cardiovascular: normal peripheral pulses, regular rate, rhythm Gastrointestinal: normal bowel sounds, non tender Neurologic/Psychiatric: alert, normal mood/affect, oriented x 3 Skin: normal color, warm/dry Progress/Results/Core Measures Suspected Sepsis SIRS Temperature: Pulse: Respiratory Rate: Laboratory Tests 04/13/19 13:15: White Blood Count 12.7H Blood Pressure / Mean: Laboratory Tests 04/13/19 13:15: Creatinine 0.58L, Platelet Count 450H, Total Bilirubin 0.1 Results/Orders Lab Results Laboratory Tests Test 04/13/19 13:00 04/13/19 13:15 Range/Units Blood Gas Puncture Site NA Blood Gas Patient Temperature 36.3 Arterial Blood pH 7.47 H 7.37-7.43 Arterial Blood Partial Pressure CO2 23 L 35-45 MMHG Arterial Blood Partial Pressure O2 145 H 79-93 MMHG Arterial Blood HCO3 17 *L 23-27 MMOL/L Arterial Blood Total CO2 17.4 L 21.0-31.0 MMOL/L Arterial Blood Oxygen Saturation 93 L 94-100 % Arterial Blood Base Excess -6.4 L -2.5-2.5 MMOL/L Beau Test NA Blood Gas Ventilator Setting NA Blood Gas Inspired Oxygen NA White Blood Count 12.7 H 4.3-11.0 10^3/uL Red Blood Count 3.60 L 4.35-5.85 10^6/uL Hemoglobin 10.1 L 11.5-16.0 G/DL Hematocrit 30 L 35-52 % Mean Corpuscular Volume 84 80-99 FL Mean Corpuscular Hemoglobin 28 25-34 PG Mean Corpuscular Hemoglobin Concent 33 32-36 G/DL Red Cell Distribution Width 14.7 H 10.0-14.5 % Platelet Count 450 H 130-400 10^3/uL Mean Platelet Volume 8.4 7.4-10.4 FL Neutrophils (%) (Auto) 69 42-75 % Lymphocytes (%) (Auto) 15 12-44 % Monocytes (%) (Auto) 5 0-12 % Eosinophils (%) (Auto) 11 H 0-10 % Basophils (%) (Auto) 0 0-10 % Neutrophils # (Auto) 8.7 H 1.8-7.8 X 10^3 Lymphocytes # (Auto) 2.0 1.0-4.0 X 10^3 Monocytes # (Auto) 0.6 0.0-1.0 X 10^3 Eosinophils # (Auto) 1.4 H 0.0-0.3 10^3/uL Basophils # (Auto) 0.1 0.0-0.1 10^3/uL Sodium Level 134 L 135-145 MMOL/L Potassium Level 3.9 3.6-5.0 MMOL/L Chloride Level 108 H 98-107 MMOL/L Carbon Dioxide Level 16 L 21-32 MMOL/L Anion Gap 10 5-14 MMOL/L Blood Urea Nitrogen 12 7-18 MG/DL Creatinine 0.58 L 0.60-1.30 MG/DL Estimat Glomerular Filtration Rate > 60 BUN/Creatinine Ratio 21 Glucose Level 126 H 70-105 MG/DL Calcium Level 8.8 8.5-10.1 MG/DL Corrected Calcium 9.1 8.5-10.1 MG/DL Total Bilirubin 0.1 0.1-1.0 MG/DL Aspartate Amino Transf (AST/SGOT) 11 5-34 U/L Alanine Aminotransferase (ALT/SGPT) 23 0-55 U/L Alkaline Phosphatase 138 H 40-136 U/L Total Protein 7.1 6.4-8.2 GM/DL Albumin 3.6 3.2-4.5 GM/DL Micro Results Microbiology 04/13/19 Influenza Types A,B Antigen (MARGARET) - Final, Complete My Orders Orders - LISSETTE DA SILVA Chest 1 View, Ap/Pa Only (04/13/19 13:14) Cbc With Automated Diff (04/13/19 13:14) Comprehensive Metabolic Panel (04/13/19 13:14) Influenza A And B Antigens (04/13/19 13:14) Albuterol Pre-Mix Nebs (Rt) (Proventil (04/13/19 13:14) Svn Small Volume Nebulizer (04/13/19 13:14) Arterial Blood Gas (04/13/19 13:15) O2 (04/13/19 13:52) Vital Signs/I&O 04/13/19 04/13/19 13:15 13:40 Temp 36.3 Pulse 120 Resp 18 B/P (MAP) 129/90 (103) Pulse Ox 98 92 O2 Delivery Room Air Room Air Capillary Refill : Progress Note : Time: 13:52 Progress Note The patient's O2 sats are in the 91-92% shortly after she arrived and she is working to breathe with the respiratory rate around 30 so we get an ABG which demonstrated she blew off all of her CO2 and was respiratory alkalotic with some metabolic compensation. After the breathing treatment her lung sounds improved 100% she's no longer having any wheezing or audible crackles just mildly diminished sounds. However her oxygen sat is still around 90% as low as 85 percent on exertion. Who put her on 2 by nasal cannula. Diagnostic Imaging Diagonstic Imaging: Xray Plain Films/CT/US/NM/MRI: chest (1v) Comments NAME: LYRIC MENDEZ MED REC#: [id number] PT STATUS: REG ER : 1990 PHYSICIAN: LISSETTE DA SILVA MD ADMIT DATE: 04/13/19/ER Draft Date of Exam:04/13/19 CHEST 1 VIEW, AP/PA ONLY INDICATION: Shortness of breath. Patient reports being . FINDINGS: Portable chest. The lungs are well-aerated without air-trapping. There are no infiltrates. The heart is not enlarged. No pulmonary edema. No hilar adenopathy. No pneumothorax or pleural effusion. No bony abnormalities. IMPRESSION: Normal portable chest. Dictated on workstation # [id number] Dict: 04/13/19 1406 Trans: 04/13/19 1408 [id number] Interpreted by: ANDERSON ARGUELLO MD Electronically signed by: Reviewed: Reviewed by Me Departure Communication (Admissions) Time/Spoke to Admitting Phy: 14:15 Dr. Rasheed agrees to observe. She will write orders. Impression Primary Impression: Asthma attack Qualified Codes: J45.901 - Unspecified asthma with (acute) exacerbation Additional Impressions: Hypoxia Qualified Codes: Z3A.24 - 24 weeks gestation of Disposition: 01 HOME, SELF-CARE Condition: Stable Admissions Decision to Admit Reason: Admit from ER (General) Decision to Admit/Date: Apr 13, 2019 Time/Decision to Admit Time: 14:00 Departure-Patient Inst. Referrals: KENNY CABRERA MD (PCP/Family) Primary Care Physician LISSETTE DA SILVA Apr 13, 2019 13:29
[2019-04-13 13:50] LABS: ALANINE AMINOTRANSFERASE 23 U/L (0-55); ALBUMIN 3.6 GM/DL (3.2-4.5); ALKALINE PHOSPHATASE 138 U/L (40-136); BILIRUBIN,TOTAL 0.1 MG/DL (0.1-1.0); BUN/CREATININE RATIO 21; CALCIUM 8.8 MG/DL (8.5-10.1); CARBON DIOXIDE 16 MMOL/L (21-32); CHLORIDE 108 MMOL/L (98-107); CREATININE SERUM 0.58 MG/DL (0.60-1.30); GFR ESTIMATED > 60; GLUCOSE 126 MG/DL (70-105); POTASSIUM 3.9 MMOL/L (3.6-5.0); SODIUM 134 MMOL/L (135-145); TOTAL PROTEIN 7.1 GM/DL (6.4-8.2)
--- NOTE | 2019-04-13 14:08 | Diagnostic Imaging Report ---
INDICATION: Shortness of breath. Patient reports being . FINDINGS: Portable chest. The lungs are well-aerated without air-trapping. There are no infiltrates. The heart is not enlarged. No pulmonary edema. No hilar adenopathy. No pneumothorax or pleural effusion. No bony abnormalities. IMPRESSION: Normal portable chest. Dictated by: Dictated on workstation # [id number]
[2019-04-13] MEDS ORDERED: RT-BUDESONIDE NEBS 0.5 MG/2ML (PULMICORT) AMP INH SCH (15:00)
--- NOTE | 2019-04-13 15:15 | NUR ---
Lyric Rodriguez admitted to room 419-1, with an admitting diagnosis of ASTHMA, on 04/13/19 from [place] via , accompanied by .LYRIC RODRIGUEZ introduced to surroundings, call light, bed controls, phone, TV, temperature control, lights, meal times, smoking policy, visitor policy, side rail policy, bathrooms and showers. Patient Rights given to patient in the handbook.LYRIC RODRIGUEZ verbalizes understanding that [facility] is not responsible for the loss or damage to any personal effects or valuables that are kept in the patients posession during their hospitalization. LYRIC RODRIGUEZ verbalizes understanding of Interdisciplinary Patient Education. Patient and/or family were informed about the Rapid Response Team and its purpose.
[2019-04-13 15:16] VITALS: BP 129/90
[2019-04-13] MEDS ORDERED: CLIN300C11 PO (15:34)
[2019-04-13] MEDS ORDERED: ACET-2267 PO (15:36)
[2019-04-13] MEDS ORDERED: MELA10CA2 PO (15:36)
[2019-04-13] MEDS ORDERED: FLUO20CA42 PO (15:40)
[2019-04-13] MEDS ORDERED: RT-ALBUINH IH (15:42)
[2019-04-13] MEDS ORDERED: DOXY25TA35 PO (15:44)
--- NOTE | 2019-04-13 15:44 | NUR ---
SPOKE WITH THE PATIENT ABOUT HER MEDICATIONS. SHE LISTED WHAT SHE TAKES AND I VERIFIED WITH [facility]. [facility] FILLED: SHE HAS HER CLINDAMYCIN BOTTLE WITH HER AND HAS BEEN TAKING IT 02-20-19 FLOVENT 110 BID (STATES SHE HAS NOT USED, SHE THOUGHT THEY WERE PRESCRIBING ADVAIR AND THIS IS NOT THAT SO SHE HAS NOT TAKEN AND WANTS TO TALK TO DR. MARIANO) 02-20-19 PROAIR (OUT OF THIS) 01-31-19 FLUOXETINE 20MG DAILY #90 (STATES SHE MISSES DOSES HERE AND THERE, NOTED THE PAST DUE FILL DATE ON THE MED REC) SHE TAKES THE FOLLOWING OTC: UNISOM HS MELATONIN `10MG HS TYLENOL PRN
[2019-04-13] MEDS ORDERED: RT-ALBUTEROL SULF 2.5 MG/3 ML PRE-MIX VIAL INH PRN (16:00)
--- NOTE | 2019-04-13 16:17 | History & Physical ---
HPI History of Present Illness: 29 yo female presents with worsening shortness of breath since Tuesday, she has mild intermittent asthma, usually uses inhaler around twice per month usually. Had some cough and mild congestion before this started. Ran out of albuterol during the night. She reports seasonal allergies, no food allergies. She is a currently at 25 weeks gestation, is feeling baby move, no bleeding, leaking fluid or contractions. Has never required hospitalization for asthma before. She also notes dental abscess that she came into the ER for and got shot of antibiotics and is now on day 4 of clindamycin, but it is actually worse than it was before. Source: patient Date seen by provider: Apr 13, 2019 Time Seen by Provider: 16:13 Attending Physician Ro Rasheed MD PCP Gela Mcdaniels MD Consult Date of Admission Apr 13, 2019 at 14:15 Home Medications Home Medications Reviewed patient Home Medication Reconciliation performed by pharmacy medication reconciliations light technician and/or nursing. Patients Allergies have been reviewed. Allergies Coded Allergies: No Known Drug Allergies (Unverified , 10/16/18) [id number] Hx Patient Social History Alcohol Use: Denies Use Recreational Drug Use: No Smoking Status: Never a Smoker 2nd Hand Smoke Exposure: No Recent Foreign Travel: No Contact w/other who traveled: No Recent Hopitalizations: No Recent Infectious Disease Expo: No Immunizations Up To Date Date of Influenza Vaccine: Mar 07, 2019 Past Medical History PMHx: Asthma SurgHx: C section Family Medical History Significant Family History: Cancer, Diabetes Review of Systems ([facility]) Constitutional: No fever EENTM: nose congestion Respiratory: cough Cardiovascular: No chest pain Gastrointestinal: No abdominal pain, No constipation, No diarrhea, No nausea, No vomiting Genitourinary: No dysuria : Yes Expected Date of Delivery: Jul 23, 2019 Musculoskeletal: No joint pain Skin: No rash Reviewed Test Results Reviewed Test Results Lab Laboratory Tests Test 04/13/19 13:00 04/13/19 13:15 Range/Units Blood Gas Puncture Site NA Blood Gas Patient Temperature 36.3 Arterial Blood pH 7.47 H 7.37-7.43 Arterial Blood Partial Pressure CO2 23 L 35-45 MMHG Arterial Blood Partial Pressure O2 145 H 79-93 MMHG Arterial Blood HCO3 17 *L 23-27 MMOL/L Arterial Blood Total CO2 17.4 L 21.0-31.0 MMOL/L Arterial Blood Oxygen Saturation 93 L 94-100 % Arterial Blood Base Excess -6.4 L -2.5-2.5 MMOL/L Beau Test NA Blood Gas Ventilator Setting NA Blood Gas Inspired Oxygen NA White Blood Count 12.7 H 4.3-11.0 10^3/uL Red Blood Count 3.60 L 4.35-5.85 10^6/uL Hemoglobin 10.1 L 11.5-16.0 G/DL Hematocrit 30 L 35-52 % Mean Corpuscular Volume 84 80-99 FL Mean Corpuscular Hemoglobin 28 25-34 PG Mean Corpuscular Hemoglobin Concent 33 32-36 G/DL Red Cell Distribution Width 14.7 H 10.0-14.5 % Platelet Count 450 H 130-400 10^3/uL Mean Platelet Volume 8.4 7.4-10.4 FL Neutrophils (%) (Auto) 69 42-75 % Lymphocytes (%) (Auto) 15 12-44 % Monocytes (%) (Auto) 5 0-12 % Eosinophils (%) (Auto) 11 H 0-10 % Basophils (%) (Auto) 0 0-10 % Neutrophils # (Auto) 8.7 H 1.8-7.8 X 10^3 Lymphocytes # (Auto) 2.0 1.0-4.0 X 10^3 Monocytes # (Auto) 0.6 0.0-1.0 X 10^3 Eosinophils # (Auto) 1.4 H 0.0-0.3 10^3/uL Basophils # (Auto) 0.1 0.0-0.1 10^3/uL Sodium Level 134 L 135-145 MMOL/L Potassium Level 3.9 3.6-5.0 MMOL/L Chloride Level 108 H 98-107 MMOL/L Carbon Dioxide Level 16 L 21-32 MMOL/L Anion Gap 10 5-14 MMOL/L Blood Urea Nitrogen 12 7-18 MG/DL Creatinine 0.58 L 0.60-1.30 MG/DL Estimat Glomerular Filtration Rate > 60 BUN/Creatinine Ratio 21 Glucose Level 126 H 70-105 MG/DL Calcium Level 8.8 8.5-10.1 MG/DL Corrected Calcium 9.1 8.5-10.1 MG/DL Total Bilirubin 0.1 0.1-1.0 MG/DL Aspartate Amino Transf (AST/SGOT) 11 5-34 U/L Alanine Aminotransferase (ALT/SGPT) 23 0-55 U/L Alkaline Phosphatase 138 H 40-136 U/L Total Protein 7.1 6.4-8.2 GM/DL Albumin 3.6 3.2-4.5 GM/DL Influenza neg Radiology CXR 04/13 normal Physical Exam-([facility]) Physical Exam Vital Signs VS - Last 72 Hours, by Label 04/13/19 04/13/19 04/13/19 04/13/19 13:15 13:30 13:40 15:02 Temp 36.3 36.3 Pulse 120 120 Resp 18 18 B/P (MAP) 129/90 (103) 129/90 (103) Pulse Ox 98 96 92 96 O2 Delivery Room Air Nasal Cannula Room Air Nasal Cannula O2 Flow Rate 2.00 2.00 04/13/19 04/13/19 15:16 15:18 Temp 36.3 Pulse 120 Pulse Ox 92 O2 Delivery Room Air FiO2 21 Capillary Refill : Less Than 3 Seconds General Appearance: WD/WN, no apparent distress HEENT: other (swelling just anterior to right TMJ, has broken posterior molar but no drainage and no intraoral lesion) Respiratory: No accessory muscle use; wheezing, other (appears mildly short of breath) Cardiovascular: tachycardia Neurologic/Psychiatric: alert, normal mood/affect Skin: normal color, warm/dry Assessment/Plan Assessment/Plan Admission Status: Observation (1) Asthma attack Status: Acute Assessment & Plan: Mild intermittent asthma at baseline but fairly significant exacerbation with supplemental oxygen requirement. CXR okay and flu neg. MAT protocol, supplemental O2 to keep above 94%, start prednisone (discussed risks and benefits in ) and inhaled budesonide Qualifiers: Qualified Codes: J45.21 - Mild intermittent asthma with (acute) exacerbation (2) Depression Status: Chronic Assessment & Plan: Resume home SSRI (3) Dental abscess Status: Acute Assessment & Plan: Not improving on clindamycin, will change to Augmentin (4) Status: Acute Assessment & Plan: heart tones twice daily. Qualifiers: Qualified Codes: Z3A.25 - 25 weeks gestation of (5) DVT prophylaxis Status: Acute Assessment & Plan: SCDs Clinical Quality Measures DVT/VTE Risk/Contraindication: Risk Factor Score Per Nursin RFS Level Per Nursing on Admit: 2=Moderate VERITO,RO N MD Apr 13, 2019 16:17
[2019-04-13] MEDS: ACETAMINOPHEN 500 MG TAB (TYLENOL) PO PRN (16:27)
[2019-04-13 16:33] VITALS: BP 115/70
[2019-04-13] MEDS: AUGMENTIN 875 MG TAB (AMOXICILLIN/CLAVULANATE) PO SCH (16:56)
[2019-04-13] MEDS: predniSONE 20 MG TAB PO SCH (16:56)
--- NOTE | 2019-04-13 17:31 | NUR ---
FHT 147, pt reports movement. unable to obtain fhr tracing. pt unable to lie sf at this time
[2019-04-13] MEDS: RT-BUDESONIDE NEBS 0.5 MG/2ML (PULMICORT) AMP INH SCH (18:40)
[2019-04-13] MEDS: RT-ALBUTEROL SULF 2.5 MG/3 ML PRE-MIX VIAL INH SCH ×2 (18:40→21:50)
[2019-04-13 20:00] VITALS: BP 118/75
[2019-04-13] MEDS ORDERED: DOXYLAMINE SUCCINATE 25 MG PO SCH (21:00)
[2019-04-13] MEDS ORDERED: NON-FORMULARY MEDICATION 1 EA EA (Melatonin 10 MG) PO SCH (21:00)
[2019-04-13] MEDS: MELATONIN 3 MG TABLET PO SCH (21:07)
[2019-04-14 00:05] VITALS: BP 110/56
[2019-04-14] MEDS: RT-ALBUTEROL SULF 2.5 MG/3 ML PRE-MIX VIAL INH SCH ×7 (01:20→21:13)
[2019-04-14 04:20] VITALS: BP 123/67
[2019-04-14] MEDS: ACETAMINOPHEN 500 MG TAB (TYLENOL) PO PRN ×3 (04:58→21:10)
[2019-04-14] MEDS: AUGMENTIN 875 MG TAB (AMOXICILLIN/CLAVULANATE) PO SCH ×2 (06:03→17:36)
[2019-04-14] MEDS: predniSONE 20 MG TAB PO SCH (06:03)
[2019-04-14 06:04] LABS: HEMOGLOBIN 9.7 G/DL (11.5-16.0); MEAN PLATELET VOLUME 8.9 FL (7.4-10.4); RED CELL DISTRIBUTION WIDTH 14.5 % (10.0-14.5); WHITE BLOOD COUNT 15.5 10^3/uL (4.3-11.0)
[2019-04-14] MEDS: RT-BUDESONIDE NEBS 0.5 MG/2ML (PULMICORT) AMP INH SCH ×2 (07:37→18:36)
[2019-04-14] MEDS: FLUoxetine HCL 20 MG (PROzac) CAP PO SCH (09:30)
[2019-04-14 09:31] VITALS: BP 123/75
[2019-04-14 11:09] VITALS: BP 109/81
--- NOTE | 2019-04-14 11:12 | Progress Note ---
Subjective Subjective/Events-last exam Afebrile, not requiring supplemental oxygen. States she feels about 60% better, still not breathing as usual. Objective Exam Last Set of Vital Signs Vital Signs Date Time Temp Pulse Resp B/P (MAP) Pulse Ox O2 Delivery O2 Flow Rate FiO2 04/14/19 09:31 36.8 104 20 123/75 (91) 97 Room Air 04/13/19 15:16 21 04/13/19 15:02 2.00 Capillary Refill : Less Than 3 Seconds I&O Intake and Output 04/14/19 00:00 Intake Total 875 ml Balance 875 ml Intake Oral 875 ml # Voids 6 # Bowel Movements 1 Daily Weight Change No No General: Alert, No Acute Distress Lungs: Other (faint end expiratory wheeze, good air movement) Heart: Regular Rate, No Murmurs Neuro: Normal Speech Psych/Mental Status: Mood NL Results/Procedures Lab Laboratory Tests 04/13/19 13:00: Blood Gas Puncture Site NA, Blood Gas Patient Temperature 36.3, Arterial Blood pH 7.47H, Arterial Blood Partial Pressure CO2 23L, Arterial Blood Partial Pressure O2 145H, Arterial Blood HCO3 17*L, Arterial Blood Total CO2 17.4L, Arterial Blood Oxygen Saturation 93L, Arterial Blood Base Excess -6.4L, Beau Test NA, Blood Gas Ventilator Setting NA, Blood Gas Inspired Oxygen NA 04/13/19 13:15: White Blood Count 12.7H, Red Blood Count 3.60L, Hemoglobin 10.1L, Hematocrit 30L , Mean Corpuscular Volume 84, Mean Corpuscular Hemoglobin 28, Mean Corpuscular Hemoglobin Concent 33, Red Cell Distribution Width 14.7H, Platelet Count 450H, Mean Platelet Volume 8.4, Neutrophils (%) (Auto) 69, Lymphocytes (%) (Auto) 15, Monocytes (%) (Auto) 5, Eosinophils (%) (Auto) 11H, Basophils (%) (Auto) 0, Neutrophils # (Auto) 8.7H, Lymphocytes # (Auto) 2.0, Monocytes # (Auto) 0.6, Eosinophils # (Auto) 1.4H, Basophils # (Auto) 0.1, Sodium Level 134L, Potassium Level 3.9, Chloride Level 108H, Carbon Dioxide Level 16L, Anion Gap 10, Blood Urea Nitrogen 12, Creatinine 0.58L, Estimat Glomerular Filtration Rate > 60, BUN/Creatinine Ratio 21, Glucose Level 126H, Calcium Level 8.8, Corrected Calcium 9.1, Total Bilirubin 0.1, Aspartate Amino Transf (AST/SGOT) 11, Alanine Aminotransferase (ALT/SGPT) 23, Alkaline Phosphatase 138H, Total Protein 7.1, Albumin 3.6 04/14/19 05:37: White Blood Count 15.5H, Red Blood Count 3.45L, Hemoglobin 9.7L, Hematocrit 29L, Mean Corpuscular Volume 85, Mean Corpuscular Hemoglobin 28, Mean Corpuscular Hemoglobin Concent 33, Red Cell Distribution Width 14.5, Platelet Count 411H, Mean Platelet Volume 8.9 Microbiology 04/13/19 Influenza Types A,B Antigen (MARGARET) - Final, Complete Radiology CXR 04/13 normal Assessment/Plan Assessment/Plan (1) Asthma attack Status: Acute Assessment & Plan: Mild intermittent asthma at baseline but fairly significant exacerbation with supplemental oxygen requirement. CXR okay and flu neg. MAT protocol, supplemental O2 to keep above 94%, start prednisone (discussed risks and benefits in ) and inhaled budesonide 04/14 feeling significantly better but still short of breath and tired, will continue current treatment and monitor overnight, anticipate likely d/c tomorrow. Qualifiers: Qualified Codes: J45.21 - Mild intermittent asthma with (acute) exacerbation (2) Depression Status: Chronic Assessment & Plan: Resume home SSRI (3) Dental abscess Status: Acute Assessment & Plan: Not improving on clindamycin, will change to Augmentin 04/14 swelling appears improved and she reports symptoms slightly better as well, continue Augmentin. (4) Status: Acute Assessment & Plan: heart tones twice daily. Qualifiers: Qualified Codes: Z3A.25 - 25 weeks gestation of (5) DVT prophylaxis Status: Acute Assessment & [facility] [place] [facility] Clinical Quality Measures DVT/VTE Risk/Contraindication: Risk Factor Score Per Nursin RFS Level Per Nursing on Admit: 2=Moderate RO SELLERS MD Apr 14, 2019 11:11
[2019-04-14 16:00] VITALS: BP 114/72
[2019-04-14 20:00] VITALS: BP 97/54
[2019-04-14] MEDS: MELATONIN 3 MG TABLET PO SCH (21:07)
[2019-04-15] VITALS: BP 100/58
[2019-04-15] MEDS: RT-ALBUTEROL SULF 2.5 MG/3 ML PRE-MIX VIAL INH SCH ×3 (01:52→11:12)
[2019-04-15 04:25] VITALS: BP 111/71
[2019-04-15] MEDS: AUGMENTIN 875 MG TAB (AMOXICILLIN/CLAVULANATE) PO SCH (06:09)
[2019-04-15] MEDS: predniSONE 20 MG TAB PO SCH (07:00)
[2019-04-15 08:00] VITALS: BP 115/72
[2019-04-15] MEDS: RT-BUDESONIDE NEBS 0.5 MG/2ML (PULMICORT) AMP INH SCH (08:49)
[2019-04-15] MEDS: FLUoxetine HCL 20 MG (PROzac) CAP PO SCH (09:56)
[2019-04-15] MEDS: ACETAMINOPHEN 500 MG TAB (TYLENOL) PO PRN (09:57)
--- NOTE | 2019-04-15 11:00 | NUR ---
Patient requests to delay taking Prednisone due to feeling jittery from medication. Patient is tearful and states that she did not sleep well last night and feels "Jittery" today and last night.
[2019-04-15] MEDS ORDERED: ALBU2.5V4 INH (11:31)
[2019-04-15] MEDS ORDERED: PRD20T PO (11:31)
[2019-04-15] MEDS ORDERED: RT-ALBUINH IH (11:31)
[2019-04-15] MEDS ORDERED: BUDE0.5A INH (11:31)
[2019-04-15] MEDS ORDERED: BUDE90AE2 IH (11:31)
[2019-04-15] MEDS ORDERED: AMOX1TAB12 PO (11:31)
--- NOTE | 2019-04-15 11:35 | Discharge Summary ---
Discharge Summary Hospital Course Problems/Diagnosis: (1) Asthma attack Status: Acute Assessment & Plan: Mild intermittent asthma at baseline but fairly significant exacerbation with supplemental oxygen requirement. CXR okay and flu neg. MAT protocol, supplemental O2 to keep above 94%, start prednisone (discussed risks and benefits in ) and inhaled budesonide 04/14 feeling significantly better but still short of breath and tired, will continue current treatment and monitor overnight, anticipate likely d/c tomorrow. 04/15 continued improvement, feeling jittery but breathing improved. Discharged with scripts for albuterol and budesonide inhalers as well as nebulized albuterol and budesonide and 3 more days of prednisone. Qualifiers: Qualified Codes: J45.21 - Mild intermittent asthma with (acute) exacerbation (2) Depression Status: Chronic Assessment & Plan: Resume home SSRI (3) Dental abscess Status: Acute Assessment & Plan: Not improving on clindamycin, will change to Augmentin 04/15 swelling appears nearly resolved continue Augmentin, 7 more days of Augmentin prescribed on d/c (4) Status: Acute Assessment & Plan: heart tones checked twice daily, reporting normal movement at time of discharge. Qualifiers: Qualified Codes: Z3A.25 - 25 weeks gestation of Hospital Course Date of Admission: Apr 13, 2019 at 14:15 Admission Diagnosis : Family Physician/Provider: Kenny Mcdaniels MD Date of Discharge: 04/15/19 Discharge Diagnosis: See problem list Hospital Course: See problem list Labs and Pending Lab Test: Microbiology 04/13/19 Influenza Types A,B Antigen (MARGARET) - Final, Complete Home Meds Active Reported Unisom Sleep Aid (Doxylamine Succinate) 25 Mg Tablet 25 Mg PO HS Prozac (Fluoxetine HCl) 20 Mg Capsule 20 Mg PO DAILY LAST FILLED #30 01-31-19 Tylenol Extra Strength (Acetaminophen) 500 Mg Tablet 500-1,000 Mg PO Q4H PRN Melatonin 10 Mg Capsule 10 Mg PO HS Clindamycin HCl 300 Mg Capsule 300 Mg PO TID 7 Days 7 DAY SUPPLY FILLED 04-10-19 Assessment/Pt DC Instructions Follow up with Dr. Mcdaniels on 04/17 as scheduled. Use either nebulized budesonide (Pulmicort) or budesonide (Pulmicort) inhaler twice daily, but not both. If you continue to feel jittery but breathing is okay, can hold the oral prednisone and monitor carefully. Discharge Diet: No Restrictions Activity as Tolerated: Yes Discharge Physical Examination Allergies: Coded Allergies: No Known Drug Allergies (Unverified , 10/16/18) General Appearance: No Apparent Distress, WD/WN Respiratory: No Accessory Muscle Use, No Respiratory Distress; No Decreased Breath Sounds; Wheezing (very slight end expiratory) Cardiovascular: Regular Rate, Rhythm, No Edema, No Murmur Skin: Normal Color, Warm/Dry Neurologic/Psychiatric: Alert, Normal Mood/Affect Copy Copies To 1: KENNY MCDANIELS MD Clinical Quality Measures DVT/VTE Risk/Contraindication: Risk Factor Score Per Nursin RFS Level Per Nursing on Admit: 2=Moderate RO SELLERS MD Apr 15, 2019 11:35
[2019-04-15 12:00] VITALS: BP 114/68
[2019-04-15 13:45] VITALS: BP 114/68
== END 2019-04-15 13:45 | disposition home or self-care (01) ==
LOC: EDUNIT# 13:09 → ER 13:10 → 4TH 14:15
PROVIDERS: ADMIT Family Medicine; ATTEND Family Medicine
DX: O99.512 Diseases of the respiratory system complicating pregnancy, second trimester (principal); J45.21 Mild intermittent asthma with (acute) exacerbation; O99.342 Other mental disorders complicating pregnancy, second trimester; F32.9 Major depressive disorder, single episode, unspecified; K04.7 Periapical abscess without sinus; Z3A.25 25 weeks gestation of pregnancy
CPT/HCPCS: 36415; 71045; 80053; 82805; 85025; 85027; 87804; 94640; 94760

== ENCOUNTER 2019-05-02 07:16 | Inpatient (IN) | payer MEDICAID ==
[~2019-05-02] VITALS: Ht 170.2 cm; Wt 81.0 kg
[~2019-05-02 07:16] MED LIST changes: +ACET-2267 PO; +ALBU2.5V4 INH; +AMOX1TAB12 PO; +BUDE0.5A INH; +BUDE90AE2 IH; +DOXY25TA35 PO; +FLUO20CA42 PO; +MELA10CA2 PO; +PRD20T PO; +RT-ALBUINH IH
[2019-05-02] MEDS ORDERED: methylPREDNISolone 125 MG (Solu-MEDROL) VIAL IV STA (07:19)
--- NOTE | 2019-05-02 07:19 | ED Respiratory ---
General Stated Complaint: SOB Source: patient History of Present Illness Date Seen by Provider: May 02, 2019 Time Seen by Provider: 07:17 Initial Comments PT ARRIVES VIA POV FROM HOME C/O ASTHMA ATTACK SINCE LAST NIGHT STATES SHE WAS ABLE TO SLEEP, BUT WOKE UP A COUPLE OF TIMES AND DID BREATHING TREATMENTS WITH ALBUTEROL. LAST NEB TREATMENT WAS AT 0630 ALSO USED PULMICORT INHALER AT THAT TIME NON-PRODUCTIVE COUGH PT UNAWARE OF ANY FEVER, BUT TEMP IS 100.6 ON ARRIVAL HERE NO CHEST PAIN NO SWELLING IN FEET OR ANKLES NO KNOWN SICK CONTACTS--PT STATES IT IS JUST HER AND HER DAUGHTER AT HOME. PT IS 7 MONTHS STATES NO OTHER PROBLEMS WITH THIS , OTHER THAN ASTHMA PT STATES SHE WAS HOSPITALIZED FOR 3 DAYS FROM 04/13-04/16 FOR THIS PROBLEM HAD STEROIDS IN HOSPITAL, BUT NOT SENT HOME ON STEROIDS TOOK 7 DAYS OF AMOXIL STATES NORMALLY SHE USES ALBUTEROL NEBULIZER TWICE A DAY EVERY DAY, BUT STATES SHE "HASN'T HAD ANY PROBLEMS" UNTIL THE LAST COUPLE OF WEEKS. PT WAS DX WITH ASTHMA AT AGE 26 PT HAS NEVER SEEN STRAIGHTENER PT HAS HAD FLU SHOT THIS SEASON WAS SEEN HER 04/09/19 FOR DENTAL ABSCESS, AND STARTED ON CLINDAMYCIN OB/PCP: DR. CABRERA--LAST VISIT 04/18/19 Allergies and Home Medications Allergies Coded Allergies: No Known Drug Allergies (Unverified , 05/02/19) Home Medications Acetaminophen 500 Mg Tablet, 500-1,000 MG PO Q4H PRN for PAIN-MILD (1-4), (Reported) Albuterol Sulfate 1 Puff Puff, 2 PUFF IH Q4H PRN for WHEEZING 1 PUFF = 90 MCG Prescribed by: RO SELLERS on 04/15/19 1131 Albuterol Sulfate 2.5 Mg/3 Ml Vial.neb, 2.5 MG NEB Q4H PRN for SHORTNESS OF BREATH, (Reported) Budesonide 180 Mcg Aer.pow.ba, 1 PUFF IH BID, (Reported) Doxylamine Succinate 25 Mg Tablet, 25 MG PO HS, (Reported) Ferrous Sulfate 325 Mg Tablet, 325 MG PO DAILY, (Reported) Melatonin 10 Mg Capsule, 10 MG PO HS, (Reported) Patient Home Medication List Home Medication List Reviewed: Yes Review of Systems Review of Systems Constitutional: see HPI EENTM: no symptoms reported; No nose congestion Respiratory: see HPI, cough, short of breath, wheezing Cardiovascular: no symptoms reported; No chest pain Gastrointestinal: no symptoms reported Genitourinary: no symptoms reported : Yes Musculoskeletal: no symptoms reported Skin: no symptoms reported Hematologic/Lymphatic: Anemia (STATES SHE GOT A CALL YESTERDAY FROM 'S OFFICE THAT SHE WAS ANEMIC AND WAS STARTED ON IRON) Immunological/Allergic: no symptoms reported Past Rajjsci-Obzxuy-Vkjvdk Hx Patient Social History Alcohol Use: Denies Use Recreational Drug Use: No Smoking Status: Never a Smoker 2nd Hand Smoke Exposure: No Recent Foreign Travel: No Contact w/Someone Who Travel: No Recent Hopitalizations: No Immunizations Up To Date Date of Influenza Vaccine: Mar 07, 2019 Seasonal Allergies Seasonal Allergies: No Past Medical History Surgeries: Yes Section Respiratory: Yes Asthma Cardiac: No Neurological: No : Yes Reproductive Disorders: Yes Female Reproductive Disorders: Denies Genitourinary: No Gastrointestinal: No Musculoskeletal: No Endocrine: No HEENT: No Cancer: No Psychosocial: Yes Anxiety, Depression Integumentary: No Blood Disorders: No Family Medical History Cancer, Diabetes Physical Exam Vital Signs - First Documented 05/02/19 07:16 Temp 38.1 Pulse 117 Resp 24 B/P (MAP) 138/85 (102) Pulse Ox 95 O2 Delivery Room Air Capillary Refill : Height: 5'7.00" Weight: 170lbs. oz. 77.445603fg; 25.20 BMI Method:Stated General Appearance: WD/WN, other (MILDLY DYSPNEIC, BUT ABLE TO TALK NON-STOP AT LENGTH. 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 II-XII nml as tested, no motor/sensory deficits, alert, oriented x 3, other (MILDLY ANXIOUS) Skin: normal color, warm/dry; No rash Focused Exam Lactate Level 05/02/19 07:30: Lactic Acid Level 1.47 Lactic Acid Level Laboratory Tests Test 05/02/19 07:30 Lactic Acid Level 1.47 MMOL/L (0.50-2.00) Progress/Results/Core Measures Suspected Sepsis SIRS Temperature: Pulse: Respiratory Rate: Laboratory Tests 05/02/19 07:30: White Blood Count 8.6 Blood Pressure / Mean: 05/02/19 07:30: Lactic Acid Level 1.47 Laboratory Tests 05/02/19 07:30: Creatinine 0.55L, INR Comment 1.0, Platelet Count 371, Total Bilirubin 0.2 Results/Orders Lab Results Laboratory Tests Test 05/02/19 07:30 05/02/19 09:11 Range/Units White Blood Count 8.6 4.3-11.0 10^3/uL Red Blood Count 3.24 L 4.35-5.85 10^6/uL Hemoglobin 8.9 L 11.5-16.0 G/DL Hematocrit 27 L 35-52 % Mean Corpuscular Volume 84 80-99 FL Mean Corpuscular Hemoglobin 27 25-34 PG Mean Corpuscular Hemoglobin Concent 33 32-36 G/DL Red Cell Distribution Width 14.0 10.0-14.5 % Platelet Count 371 130-400 10^3/uL Mean Platelet Volume 8.7 7.4-10.4 FL Neutrophils (%) (Auto) 78 H 42-75 % Lymphocytes (%) (Auto) 8 L 12-44 % Monocytes (%) (Auto) 7 0-12 % Eosinophils (%) (Auto) 7 0-10 % Basophils (%) (Auto) 1 0-10 % Neutrophils # (Auto) 6.7 1.8-7.8 X 10^3 Lymphocytes # (Auto) 0.7 L 1.0-4.0 X 10^3 Monocytes # (Auto) 0.6 0.0-1.0 X 10^3 Eosinophils # (Auto) 0.6 H 0.0-0.3 10^3/uL Basophils # (Auto) 0.1 0.0-0.1 10^3/uL Neutrophils % (Manual) 75 % Lymphocytes % (Manual) 12 % Monocytes % (Manual) 6 % Eosinophils % (Manual) 6 % Basophils % (Manual) 0 % Metamyelocytes % % Band Neutrophils 1 % Blood Morphology Comment NORMAL Prothrombin Time 13.4 12.2-14.7 SEC INR Comment 1.0 0.8-1.4 Activated Partial Thromboplast Time 26 24-35 SEC Sodium Level 135 135-145 MMOL/L Potassium Level 3.4 L 3.6-5.0 MMOL/L Chloride Level 107 98-107 MMOL/L Carbon Dioxide Level 20 L 21-32 MMOL/L Anion Gap 8 5-14 MMOL/L Blood Urea Nitrogen 5 L 7-18 MG/DL Creatinine 0.55 L 0.60-1.30 MG/DL Estimat Glomerular Filtration Rate > 60 BUN/Creatinine Ratio 9 Glucose Level 97 70-105 MG/DL Lactic Acid Level 1.47 0.50-2.00 MMOL/L Calcium Level 8.4 L 8.5-10.1 MG/DL Corrected Calcium 8.8 8.5-10.1 MG/DL Magnesium Level 1.9 1.6-2.4 MG/DL Total Bilirubin 0.2 0.1-1.0 MG/DL Aspartate Amino Transf (AST/SGOT) 11 5-34 U/L Alanine Aminotransferase (ALT/SGPT) 9 0-55 U/L Alkaline Phosphatase 120 40-136 U/L Total Protein 6.7 6.4-8.2 GM/DL Albumin 3.5 3.2-4.5 GM/DL Serum Test, Qualitative POSITIVE NEGATIVE Urine Color YELLOW Urine Clarity CLEAR Urine pH 8.0 5-9 Urine Specific [place] 1.015 L 1.016-1.022 Urine Protein NEGATIVE NEGATIVE Urine Glucose (UA) NEGATIVE NEGATIVE Urine Ketones NEGATIVE NEGATIVE Urine Nitrite NEGATIVE NEGATIVE Urine Bilirubin NEGATIVE NEGATIVE Urine Urobilinogen 0.2 < = 1.0 MG/DL Urine Leukocyte Esterase NEGATIVE NEGATIVE Urine RBC (Auto) NEGATIVE NEGATIVE Urine RBC NONE /HPF Urine WBC NONE /HPF Urine Squamous Epithelial Cells 0-2 /HPF Urine Crystals NONE /LPF Urine Bacteria TRACE /HPF Urine Casts NONE /LPF Urine Mucus NEGATIVE /LPF Urine Culture Indicated NO Micro Results Microbiology 05/02/19 Influenza Types A,B Antigen (MARGARET) - Final, Complete My Orders Orders - MARLENA SKAGGS DO Ed Iv/Invasive Line Start (05/02/19 07:19) O2 (05/02/19 07:19) Monitor-Rhythm Ecg Trace Only (05/02/19 07:19) Albuterol/Ipra Inhalation Soln (Duoneb I (05/02/19 07:30) Dexamethasone Injection (Decadron Inject (05/02/19 07:30) Methylprednisolone Sod Succ (Solu-Medrol (05/02/19 07:19) Chest 1 View, Ap/Pa Only (05/02/19 07:19) Cbc With Automated Diff (05/02/19 07:19) Comprehensive Metabolic Panel (05/02/19 07:19) Hcg,Qualitative Serum (05/02/19 07:19) Lactic Acid Analyzer (05/02/19 07:26) Magnesium (05/02/19 07:26) Blood Culture (05/02/19 07:26) Influenza A And B Antigens (05/02/19 07:26) Albuterol Pre-Mix Nebs (Rt) (Proventil (05/02/19 07:31) Heart Tones (05/02/19 07:31) Sputum Culture (05/02/19 07:31) Urinalysis (05/02/19 07:31) Urine Culture (05/02/19 07:31) Protime With Inr (05/02/19 07:31) Partial Thromboplastin Time (05/02/19 07:31) Acetaminophen Tablet (Tylenol Tablet) (05/02/19 07:45) Ed Iv/Invasive Line Start (05/02/19 07:31) Ed Iv/Invasive Line Start (05/02/19 07:31) Vital Signs Adult Sepsis Patie Q15M (05/02/19 07:31) Remove Rings In Anticipation O (05/02/19 07:31) Ceftriaxone For Iv Use (Rocephin For I (05/02/19 07:45) Azithromycin Injection (Zithromax Inject (05/02/19 07:45) Ed Iv/Invasive Line Start (05/02/19 07:31) Lactated Ringers (Lr 1000 Ml Iv Solution (05/02/19 07:31) Albuterol Pre-Mix Nebs (Rt) (Proventil (05/02/19 07:35) Manual Differential (05/02/19 07:30) Oseltamivir 75 Mg Capsule (Tamiflu 75 (05/02/19 08:30) Ondansetron Injection (Zofran Injectio (05/02/19 09:00) Medications Given in ED Current Medications Medications Dose Ordered Sig/Kay Route Start Time Stop Time Status Last Admin Dose Admin Acetaminophen 1,000 mg ONCE PRN PO 1/29/20 07:45 05/02/19 08:15 DC 05/02/19 08:14 1,000 MG Albuterol Sulfate 2.5 mg STK-MED ONCE .ROUTE 05/02/19 07:35 05/02/19 07:40 DC 05/02/19 07:41 5 MG Albuterol/ Ipratropium 3 ml ONCE ONCE INH 05/02/19 07:30 05/02/19 07:31 DC 05/02/19 07:30 3 ML Azithromycin 500 mg/Sodium Chloride 250 ml @ 250 mls/hr ONCE ONCE IV 05/02/19 07:45 05/02/19 08:44 DC 05/02/19 08:46 250 MLS/HR Ceftriaxone Sodium 1000 mg/ Sterile Water 10 ml @ 200 mls/hr ONCE ONCE IV 05/02/19 07:45 05/02/19 07:47 DC 05/02/19 08:43 200 MLS/HR Dexamethasone Sodium Phosphate 20 mg ONCE ONCE IH 05/02/19 07:30 05/02/19 07:31 DC 05/02/19 07:30 20 MG Lactated Ringer's 1,000 ml @ 0 mls/hr Q0M ONCE IV 05/02/19 07:31 05/02/19 07:39 DC 05/02/19 08:14 1,000 MLS/HR Ondansetron HCl 4 mg ONCE ONCE IVP 05/02/19 09:00 05/02/19 09:01 DC 05/02/19 09:04 4 MG Oseltamivir Phosphate 75 mg ONCE ONCE PO 05/02/19 08:30 05/02/19 08:31 DC 05/02/19 10:37 75 MG Vital Signs/I&O 05/02/19 05/02/19 05/02/19 07:16 07:34 07:42 Temp 38.1 Pulse 117 Resp 24 B/P (MAP) 138/85 (102) Pulse Ox 95 95 95 O2 Delivery Room Air Capillary Refill : Progress Note : Progress Note GIVEN HOUR LONG NEB TREATMENT WITH INCREASED AERATION AND DECREASED WHEEZING, BUT STILL DYSPNEIC WITH MINIMAL EXERTION PT HAD TO BE HELD IN ER FOR SEVERAL HOURS, DUE TO FLOOR NURSING STAFFING REPEAT NEB TREATMENT GIVEN DURING STAY, PT IS TO BE ON A Q 4 HR SCHEDULE. STILL DYSPNEIC WITH MINIMAL EXERTION NO DETERIORATION IN PT'S CONDITION DURING ER STAY O2 SATS REMAINED IN MID 90'S, HR DOWN TO 110'S, BP REMAINED IN 120'S SYSTOLIC. FHR 145 Diagnostic Imaging Comments CXR--NO ACUTE PROCESS, [place] RADIOLOGIST [place] AT 0819 Reviewed: Reviewed by Me Departure Communication (Admissions) 824--ATTEMPTING TO CONTACT . [place] [facility] [place]POKE WITH HER NURSE 08--CALLED DR. CABRERA'S CELL. MESSAGE LEFT. [phone]--CALLED DR. CABRERA'S CELL. MESSAGE LEFT [phone]--[place]ED [facility] [place] ATTEMPTING TO CALL NURSE/CONTACT DR. CABRERA. 939--SPOKE WITH DR. QUACH, AUTOMOTIVE PAINT TECHNICIAN FOR [facility]. HE ACCEPTS PT FOR ADMIT TO 4TH FLOOR. ORDERS NOTED FOR SOLU-MEDROL. Impression Primary Impression: Influenza A Additional Impressions: Asthma exacerbation 7 MONTHS GESTATION OF Disposition: ADMITTED INPATIENT Condition: Improved Admissions Decision to Admit Reason: Admit from ER (General) Decision to Admit/Date: May 02, 2019 Time/Decision to Admit Time: 09:40 Departure-Patient Inst. Referrals: KENNY CABRERA MD (PCP/Family) Primary Care Physician MARLENA SKAGGS DO May 02, 2019 07:19
[2019-05-02] MEDS ORDERED: RT-ALBUTEROL/IPRATROPIUM 3 ML (DUONEB) VIAL INH ONE (07:30)
[2019-05-02] MEDS ORDERED: DEXAMETHASONE 4 MG/ML SDV (DECADRON) IH ONE (07:30)
[2019-05-02] MEDS ORDERED: RT-ALBUTEROL SULF 2.5 MG/3 ML PRE-MIX VIAL INH STA (07:31)
[2019-05-02] MEDS ORDERED: LACTATED RINGERS 1,000 ML IV ONE (07:31)
[2019-05-02] MEDS ORDERED: FERR325T18 PO (07:31)
[2019-05-02] MEDS ORDERED: RT-ALBUTEROL SULF 2.5 MG/3 ML PRE-MIX VIAL ONE (07:35)
[2019-05-02 07:42] LABS: BASOPHILS # (AUTO) 0.1 10^3/uL (0.0-0.1); BASOPHILS % (AUTO) 1 % (0-10); EOSINOPHILS # (AUTO) 0.6 10^3/uL (0.0-0.3); EOSINOPHILS % (AUTO) 7 % (0-10); HEMATOCRIT 27 % (35-52); HEMOGLOBIN 8.9 G/DL (11.5-16.0); LYMPHOCYTES # (AUTO) 0.7 X 10^3 (1.0-4.0); LYMPHOCYTES % (AUTO) 8 % (12-44); MEAN CORPUSCULAR HEMOGLOBIN 27 PG (25-34); MEAN CORPUSCULAR HGB CONC 33 G/DL (32-36); MEAN CORPUSCULAR VOLUME 84 FL (80-99); MEAN PLATELET VOLUME 8.7 FL (7.4-10.4); MONOCYTES # (AUTO) 0.6 X 10^3 (0.0-1.0); MONOCYTES % (AUTO) 7 % (0-12); NEUTROPHILS # (AUTO) 6.7 X 10^3 (1.8-7.8); NEUTROPHILS % (AUTO) 78 % (42-75); PLATELET COUNT 371 10^3/uL (130-400); WHITE BLOOD COUNT 8.6 10^3/uL (4.3-11.0)
[2019-05-02] MEDS ORDERED: AZITHROMYCIN INJECTION 500 MG in NS (IVPB) 250 ML IV ONE (07:45)
[2019-05-02] MEDS ORDERED: ACETAMINOPHEN 500 MG TAB (TYLENOL) PO PRN (07:45)
[2019-05-02] MEDS ORDERED: cefTRIAXone FOR IV USE 1,000 MG in WATER (STERILE) FOR INJECTION 10 ML IV ONE (07:45)
[2019-05-02 07:57] LABS: PROTHROMBIN TIME PATIENT 13.4 SEC (12.2-14.7)
[2019-05-02 08:05] LABS: ALANINE AMINOTRANSFERASE 9 U/L (0-55); ALBUMIN 3.5 GM/DL (3.2-4.5); ALKALINE PHOSPHATASE 120 U/L (40-136); BILIRUBIN,TOTAL 0.2 MG/DL (0.1-1.0); BUN/CREATININE RATIO 9; CALCIUM 8.4 MG/DL (8.5-10.1); CARBON DIOXIDE 20 MMOL/L (21-32); CHLORIDE 107 MMOL/L (98-107); CREATININE SERUM 0.55 MG/DL (0.60-1.30); GFR ESTIMATED > 60; GLUCOSE 97 MG/DL (70-105); MAGNESIUM 1.9 MG/DL (1.6-2.4); POTASSIUM 3.4 MMOL/L (3.6-5.0); SODIUM 135 MMOL/L (135-145); TOTAL PROTEIN 6.7 GM/DL (6.4-8.2)
--- NOTE | 2019-05-02 08:17 | Diagnostic Imaging Report ---
INDICATION: Asthma, shortness of breath COMPARISON: 04/13/2019 TECHNIQUE: Single radiograph of the chest dated 05/02/2019. FINDINGS: The cardiac silhouette is within normal limits in size. No significant pulmonary vascular congestion. The lungs are clear. No pleural effusion. No pneumothorax. No acute osseous abnormality. IMPRESSION: Stable examination without acute cardiopulmonary abnormality. Dictated by: Dictated on workstation # [id number]
[2019-05-02] MEDS ORDERED: OSELTAMIVIR 75 MG (TAMIFLU) CAPSULE PO ONE (08:30)
--- NOTE | 2019-05-02 08:30 | NUR ---
LAB IN ROOM WITH THE PT AT THIS TIME.
[2019-05-02 08:31] LABS: BAND NEUTROPHILS 1 %; BASOPHILS % (MANUAL) 0 %; EOSINOPHILS % (MANUAL) 6 %; LYMPHOCYTES % (MANUAL) 12 %; MONOCYTES % (MANUAL) 6 %; NEUTROPHILS % (MANUAL) 75 %; RBC MORPH NORMAL
[2019-05-02] MEDS ORDERED: ONDANSETRON 4 MG/2 ML (SDV) Z0FRAN IVP ONE (09:00)
[2019-05-02 09:19] LABS: BILIRUBIN,URINE NEGATIVE (NEGATIVE); CLARITY,URINE CLEAR; COLOR,URINE YELLOW; GLUCOSE, URINE (UA) NEGATIVE (NEGATIVE); KETONES,URINE NEGATIVE (NEGATIVE); LEUKOCYTE ESTERASE ,URINE NEGATIVE (NEGATIVE); NITRITE,URINE NEGATIVE (NEGATIVE); PROTEIN,URINE NEGATIVE (NEGATIVE)
[2019-05-02 09:26] LABS: BACTERIA,URINE TRACE /HPF; SQUAMOUS EPITHELIAL CELL,UR 0-2 /HPF
--- NOTE | 2019-05-02 10:29 | NUR ---
PT UPDATED THAT WE ARE WAITING ON A ROOM.
[2019-05-02] MEDS ORDERED: OSELTAMIVIR 75 MG (TAMIFLU) CAPSULE ONE (10:32)
--- NOTE | 2019-05-02 11:01 | NUR ---
FOOD ORDERED FOR PT.
--- NOTE | 2019-05-02 11:35 | NUR ---
PT UPDATED TO THE WAIT TO GO UPSTAIRS. DENIES NEEDS ET EATING THE LUNCH THAT WAS PROVIDED.
--- NOTE | 2019-05-02 14:40 | NUR ---
REC'D PER WC FROM ER. SEE ASSESSMENT.LYRIC MENDEZ admitted to room 407-1, with an admitting diagnosis of FLU, on 05/02/19 from ED via WC, accompanied by STAFF. LYRIC MENDEZ introduced to surroundings, call light, bed controls, phone, TV, temperature control, lights, meal times, smoking policy, visitor policy, side rail policy, bathrooms and showers. Patient Rights given to patient in the handbook. LYRIC MENDEZ verbalizes understanding that [facility] is not responsible for the loss or damage to any personal effects or valuables that are kept in the patients posession during their hospitalization. The following Patient Care Plans were discussed with the PT: Discharge Planning, PAIN, AND FLU. LYRIC MENDEZ verbalizes understanding of Interdisciplinary Patient Education. Patient and/or family were informed about the Rapid Response Team and its purpose.
[2019-05-02 14:44] VITALS: BP 134/71
[2019-05-02] MEDS ORDERED: ALBU2.5V4 NEB (15:00)
[2019-05-02] MEDS ORDERED: CATHETER FLUSH 10 ML SYR IV PRN (15:15)
[2019-05-02] MEDS: ACETAMINOPHEN 500 MG TAB (TYLENOL) PO PRN ×2 (15:19→22:49)
[2019-05-02 15:20] VITALS: BP 138/85
[2019-05-02] MEDS: D5 1/2 NS W/KCL 20 MEQ/L 1,000 ML IV SCH ×2 (15:20→22:48)
[2019-05-02 15:40] VITALS: BP 117/59
[2019-05-02] MEDS ORDERED: BUDE180A IH (15:44)
--- NOTE | 2019-05-02 15:47 | NUR ---
SPOKE WITH THE PATIENT ABOUT HER MEDICATIONS. SHE LISTED WHAT SHE IS TAKING. SHE STATES HER INSURANCE WOULD NOT COVER THE BUDESONIDE NEBULIZER SOLUTION SO SHE JUST HAS ALBUTEROL NEBULIZER SOLUTION. SHE ALSO STILL HAS THE ALBUTEROL INHALER NEEDED. SHE DID FILL THE PULMICORT FLEXHALER BUT WAS TOLD TO RICARDO TAKE 1 PUFF BID. SHE WAS RECENTLY PRESCRIBED IRON DAILY. SHE TAKES THE FOLLOWING OTC: TYLENOL PRN UNISOM HS MELATONIN HS Addendum: 05/02/19 at 1549 by ISA MONTAAN [facility] LAST TIME SHE WAS HERE SHE WAS PAST DUE FOR REFILL ON HER FLUOXETINE, SHE ADMITTED THEN SHE DID MISS DOSES HERE AND THERE. SHE STATES THIS TIME SHE IS OUT OF THE MEDICATION AND PLANS NOT TO RESUME IT UNTIL AFTER SHE HAS THE BABY. I REMOVED IT FROM THE MED REC AT THIS TIME.
--- NOTE | 2019-05-02 15:59 | History & Physical ---
HPI History of Present Illness: 29-year-old female currently at 7 months gestation who presents to [facility] emergency department with asthma exacerbation. She does have a history of asthma and was hospitalized last month as well. 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 Her cough is nonproductive and she did not admit to any fever. She denied any contacts with anyone with influenza but she does have a daughter at home. She also has Pulmicort available at home. She does see Dr. Mcdaniels at [facility] for her asthma as well as for her . Source: patient Exam Limitations: clinical condition Date seen by provider: May 02, 2019 Time Seen by Provider: 16:00 Attending Physician Simba Quach MD PCP Gela Mcdaniels MD Consult Date of Admission May 02, 2019 at 09:40 Home Medications Home Medications Reviewed patient Home Medication Reconciliation performed by pharmacy medication reconciliations geology technician and/or nursing. Patients Allergies have been reviewed. Allergies Coded Allergies: No Known Drug Allergies (Unverified , 10/16/18) ALG-Iruldj-Dofwkq Hx Patient Social History Alcohol Use: Denies Use Recreational Drug Use: No Smoking Status: Never a Smoker 2nd Hand Smoke Exposure: No Recent Foreign Travel: No Contact w/other who traveled: No Recent Hopitalizations: No Recent Infectious Disease Expo: No Immunizations Up To Date Date of Influenza Vaccine: Mar 07, 2019 Past Medical History PMHx: Asthma SurgHx: C section Family Medical History Significant Family History: Cancer, Diabetes Review of Systems ([facility]) Constitutional: see HPI Reviewed Test Results Reviewed Test Results Lab Laboratory Tests Test 05/02/19 07:30 05/02/19 09:11 Range/Units White Blood Count 8.6 4.3-11.0 10^3/uL Red Blood Count 3.24 L 4.35-5.85 10^6/uL Hemoglobin 8.9 L 11.5-16.0 G/DL Hematocrit 27 L 35-52 % Mean Corpuscular Volume 84 80-99 FL Mean Corpuscular Hemoglobin 27 25-34 PG Mean Corpuscular Hemoglobin Concent 33 32-36 G/DL Red Cell Distribution Width 14.0 10.0-14.5 % Platelet Count 371 130-400 10^3/uL Mean Platelet Volume 8.7 7.4-10.4 FL Neutrophils (%) (Auto) 78 H 42-75 % Lymphocytes (%) (Auto) 8 L 12-44 % Monocytes (%) (Auto) 7 0-12 % Eosinophils (%) (Auto) 7 0-10 % Basophils (%) (Auto) 1 0-10 % Neutrophils # (Auto) 6.7 1.8-7.8 X 10^3 Lymphocytes # (Auto) 0.7 L 1.0-4.0 X 10^3 Monocytes # (Auto) 0.6 0.0-1.0 X 10^3 Eosinophils # (Auto) 0.6 H 0.0-0.3 10^3/uL Basophils # (Auto) 0.1 0.0-0.1 10^3/uL Neutrophils % (Manual) 75 % Lymphocytes % (Manual) 12 % Monocytes % (Manual) 6 % Eosinophils % (Manual) 6 % Basophils % (Manual) 0 % Metamyelocytes % % Band Neutrophils 1 % Blood Morphology Comment NORMAL Prothrombin Time 13.4 12.2-14.7 SEC INR Comment 1.0 0.8-1.4 Activated Partial Thromboplast Time 26 24-35 SEC Sodium Level 135 135-145 MMOL/L Potassium Level 3.4 L 3.6-5.0 MMOL/L Chloride Level 107 98-107 MMOL/L Carbon Dioxide Level 20 L 21-32 MMOL/L Anion Gap 8 5-14 MMOL/L Blood Urea Nitrogen 5 L 7-18 MG/DL Creatinine 0.55 L 0.60-1.30 MG/DL Estimat Glomerular Filtration Rate > 60 BUN/Creatinine Ratio 9 Glucose Level 97 70-105 MG/DL Lactic Acid Level 1.47 0.50-2.00 MMOL/L Calcium Level 8.4 L 8.5-10.1 MG/DL Corrected Calcium 8.8 8.5-10.1 MG/DL Magnesium Level 1.9 1.6-2.4 MG/DL Total Bilirubin 0.2 0.1-1.0 MG/DL Aspartate Amino Transf (AST/SGOT) 11 5-34 U/L Alanine Aminotransferase (ALT/SGPT) 9 0-55 U/L Alkaline Phosphatase 120 40-136 U/L Total Protein 6.7 6.4-8.2 GM/DL Albumin 3.5 3.2-4.5 GM/DL Serum Test, Qualitative POSITIVE NEGATIVE Urine Color YELLOW Urine Clarity CLEAR Urine pH 8.0 5-9 Urine Specific [place] 1.015 L 1.016-1.022 Urine Protein NEGATIVE NEGATIVE Urine Glucose (UA) NEGATIVE NEGATIVE Urine Ketones NEGATIVE NEGATIVE Urine Nitrite NEGATIVE NEGATIVE Urine Bilirubin NEGATIVE NEGATIVE Urine Urobilinogen 0.2 < = 1.0 MG/DL Urine Leukocyte Esterase NEGATIVE NEGATIVE Urine RBC (Auto) NEGATIVE NEGATIVE Urine RBC NONE /HPF Urine WBC NONE /HPF Urine Squamous Epithelial Cells 0-2 /HPF Urine Crystals NONE /LPF Urine Bacteria TRACE /HPF Urine Casts NONE /LPF Urine Mucus NEGATIVE /LPF Urine Culture Indicated NO Radiology [facility]. [place], [place] NAME: LYRIC MENDEZ MED REC#: [id number] PT STATUS: REG ER : 1990 PHYSICIAN: MARLENA SKAGGS DO ADMIT DATE: 05/02/19/ER Draft Date of Exam:05/02/19 CHEST 1 VIEW, AP/PA ONLY INDICATION: Asthma, shortness of breath COMPARISON: 04/13/2019 TECHNIQUE: Single radiograph of the chest dated 05/02/2019. FINDINGS: The cardiac silhouette is within normal limits in size. No significant pulmonary vascular congestion. The lungs are clear. No pleural effusion. No pneumothorax. No acute osseous abnormality. IMPRESSION: Stable examination without acute cardiopulmonary abnormality. Dictated on workstation # [id number] Dict: 05/02/19 0811 Trans: 05/02/19 0816 [facility] [id number] Interpreted by: SHAKEEL AVILA MD Electronically signed by: Physical Exam-([facility]) Physical Exam Vital Signs VS - Last 72 Hours, by Label 05/02/19 05/02/19 05/02/19 05/02/19 07:16 07:34 07:42 10:30 Temp 38.1 36.9 Pulse 117 Resp 24 B/P (MAP) 138/85 (102) Pulse Ox 95 95 95 O2 Delivery Room Air 05/02/19 05/02/19 05/02/19 05/02/19 13:38 14:39 14:44 15:20 Temp 35.9 37.0 38.1 Pulse 112 113 117 Resp 20 B/P (MAP) 126/79 134/71 Pulse Ox 96 96 96 95 O2 Delivery Room Air Room Air FiO2 21 Capillary Refill : Less Than 3 Seconds General Appearance: mild distress Assessment/Plan Assessment/Plan Admission Dx 1. Asthma exacerbation 2. Influenza A 3. at 7 months Admission Status: Observation Reason for Inpatient Admission: She is admitted for further oxygen therapy by nasal cannula. In addition she will be given breathing treatments per respiratory therapy. IV Solu-Medrol 40 mg every 12 hours also initiated. Assessment & Plan 1. Asthma exacerbation -She will receive Solu-Medrol 40 mg IV every 12 hours. -Respiratory therapy for nasal cannula oxygen as well as breathing treatments by albuterol 2. Influenza A -She will be placed on Tamiflu 75 mg twice daily for 5 days. 3. at 7 months -Monitor by Doppler every shift. SIMBA QUACH MD May 02, 2019 15:59
[2019-05-02] MEDS ORDERED: RT-ALBUTEROL/IPRATROPIUM 3 ML (DUONEB) VIAL INH PRN (16:00)
[2019-05-02] MEDS: RT-ALBUTEROL/IPRATROPIUM 3 ML (DUONEB) VIAL INH SCH ×2 (18:13→22:55)
[2019-05-02 20:00] VITALS: BP 135/76
--- NOTE | 2019-05-02 20:00 | NUR ---
HEART TONES ASSESSED AT APPROXIMATELY 1999. HEART RATE-133BPM.
[2019-05-02] MEDS: OSELTAMIVIR 75 MG (TAMIFLU) CAPSULE PO SCH (20:14)
[2019-05-02] MEDS: methylPREDNISolone 40 MG/ML (Solu-MEDROL) VIAL IV SCH (20:14)
[2019-05-03] VITALS: BP 101/59
[2019-05-03] MEDS: RT-ALBUTEROL/IPRATROPIUM 3 ML (DUONEB) VIAL INH SCH ×2 (01:15→07:22)
[2019-05-03 04:00] VITALS: BP 106/55
[2019-05-03 04:51] LABS: BASOPHILS % (AUTO) 0 % (0-10); EOSINOPHILS % (AUTO) 0 % (0-10); HEMATOCRIT 25 % (35-52); HEMOGLOBIN 8.1 G/DL (11.5-16.0); LYMPHOCYTES # (AUTO) 0.5 X 10^3 (1.0-4.0); LYMPHOCYTES % (AUTO) 5 % (12-44); MEAN CORPUSCULAR HEMOGLOBIN 28 PG (25-34); MEAN CORPUSCULAR HGB CONC 33 G/DL (32-36); MEAN CORPUSCULAR VOLUME 85 FL (80-99); MEAN PLATELET VOLUME 8.8 FL (7.4-10.4); MONOCYTES # (AUTO) 0.7 X 10^3 (0.0-1.0); MONOCYTES % (AUTO) 7 % (0-12); NEUTROPHILS # (AUTO) 8.8 X 10^3 (1.8-7.8); NEUTROPHILS % (AUTO) 88 % (42-75); PLATELET COUNT 354 10^3/uL (130-400); RED CELL DISTRIBUTION WIDTH 13.9 % (10.0-14.5)
[2019-05-03] MEDS: D5 1/2 NS W/KCL 20 MEQ/L 1,000 ML IV SCH (04:51)
[2019-05-03 05:17] LABS: ALANINE AMINOTRANSFERASE 9 U/L (0-55); ALBUMIN 3.1 GM/DL (3.2-4.5); ALKALINE PHOSPHATASE 109 U/L (40-136); BILIRUBIN,TOTAL 0.1 MG/DL (0.1-1.0); BUN/CREATININE RATIO 7; CALCIUM 8.3 MG/DL (8.5-10.1); CARBON DIOXIDE 14 MMOL/L (21-32); CHLORIDE 112 MMOL/L (98-107); CREATININE SERUM 0.56 MG/DL (0.60-1.30); GFR ESTIMATED > 60; GLUCOSE 169 MG/DL (70-105); SODIUM 136 MMOL/L (135-145); TOTAL PROTEIN 6.1 GM/DL (6.4-8.2)
[2019-05-03] MEDS ORDERED: PRD20T PO (07:21)
--- NOTE | 2019-05-03 07:23 | Discharge Inst-Simple/Standard ---
Discharge Inst-Standard Reconcile Patient Problems Problems Reviewed?: Yes Discharge Medications New, Converted or Re-Newed RX: Transmitted to Pharmacy ([facility]) Patient Instructions/Follow Up Plan of Care/Instructions/FU: FU with Dr Mcdaniels in 1 week. Continue with iron twice daily Activity as Tolerated: Yes Discharge Diet: Regular Diet Return to The Hospital For: worsening shortness of breath. DUANE QUACH MD May 03, 2019 07:23
--- NOTE | 2019-05-03 07:34 | Discharge Summary ---
Diagnosis/Chief Complaint Date of Admission May 02, 2019 at 09:40 Date of Discharge May 03, 2019 Admission Diagnosis Admission Diagnosis 1. Asthma exacerbation 2. at 26 weeks 3. Anemiairon deficiency Discharge Diagnosis 1. Asthma exacerbation 2. at 26 weeks 3. Anemiairon deficiency Chief Complaint/HPI Chief Complaint/HPI 29-year-old female currently at 7 months gestation who presents to [facility] emergency department with asthma exacerbation. She does have a history of asthma and was hospitalized last month as well. 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 Her cough is nonproductive and she did not admit to any fever. She denied any contacts with anyone with influenza but she does have a daughter at home. She also has Pulmicort available at home. She does see Dr. Mcdaniels at [facility] for her asthma as well as for her . Discharge Summary-Simple/Stand Consultations Discharge Physical Examination Allergies: Coded Allergies: No Known Drug Allergies (Unverified , 05/02/19) Vitals & I&Os Vital Sign - Last 12Hours Date Time Temp Pulse Resp B/P (MAP) Pulse Ox O2 Delivery O2 Flow Rate FiO2 05/03/19 07:22 94 Room Air 05/03/19 04:00 36.5 99 18 106/55 (72) 05/02/19 15:20 21 Intake and Output 05/03/19 00:00 Intake Total 2662 ml Output Total 2000 ml Balance 662 ml General Appearance: No Acute Distress Respiratory: Clear to Auscultation Cardiovascular: Regular Rate Abdominal: Soft (With documented heart tones during the course of her stay) Skin: No Rashes Hospital Course Patient was admitted for observation during the day of May 02, 2019 with asthma exacerbation. She continued to receive Solu-Medrol 40 mg IV twice daily. She had received Rocephin for one dose in the emergency department. Her breathing markedly improved on the floor [facility]. CBC rechecked in the morning of May 03 revealed stable white blood cell count and hemoglobin noted to be 8.1. She was made aware of the hemoglobin 8.1 and stress to her to take her iron twice daily. She also had received albuterol breathing treatments every 4 hours while on the floor. She was felt ready for dismissal during the late morning of May 03, 2019. She will have prednisone called to [facility] and will take 40 mg daily for 3 days and 20 mg daily for 3 days. She will also follow-up with Dr. Mcdaniels within the next week. Radiology Reviewed [facility]. [place], [place] NAME: LYRIC MENDEZ [facility] REC#: [id number] PT STATUS: REG ER : 1990 PHYSICIAN: MARLENA SKAGGS DO ADMIT DATE: 05/02/19/ER Draft Date of Exam:05/02/19 CHEST 1 VIEW, AP/PA ONLY INDICATION: Asthma, shortness of breath COMPARISON: 04/13/2019 TECHNIQUE: Single radiograph of the chest dated 05/02/2019. FINDINGS: The cardiac silhouette is within normal limits in size. No significant pulmonary vascular congestion. The lungs are clear. No pleural effusion. No pneumothorax. No acute osseous abnormality. IMPRESSION: Stable examination without acute cardiopulmonary abnormality. Dictated on workstation # [id number] Dict: 05/02/19 0811 Trans: 05/02/19 0816 [facility] [id number] Interpreted by: SHAKEEL AVILA MD Electronically signed by: Discharge Instructions to patient/family Please see electronic discharge instructions given to patient. Discharge Medications Reviewed and agree with Discharge Medication list on patient's Discharge Instruction sheet Clinical Quality Measures DVT/VTE Risk/Contraindication: Risk Factor Score Per Nursin RFS Level Per Nursing on Admit: 2=Moderate DUANE QUACH MD May 03, 2019 07:34
[2019-05-03 08:00] VITALS: BP 125/71
[2019-05-03] MEDS ORDERED: cefTRIAXone 1,000 MG/SWFI 10 ML IV PUSH IV SCH ×2 (08:00)
[2019-05-03] MEDS ORDERED: ONDANSETRON 4 MG (ZOFRAN) ORAL DISSOLVE TAB ONE (08:09)
[2019-05-03] MEDS ORDERED: ONDANSETRON 4 MG (ZOFRAN) ORAL DISSOLVE TAB PO NR (08:15)
[2019-05-03] MEDS: OSELTAMIVIR 75 MG (TAMIFLU) CAPSULE PO SCH (08:17)
[2019-05-03] MEDS: methylPREDNISolone 40 MG/ML (Solu-MEDROL) VIAL IV SCH (08:18)
[2019-05-03] MEDS ORDERED: AZITHROMYCIN 500 MG/NS 250 ML IVPB IV SCH ×2 (09:00)
[2019-05-03] MEDS ORDERED: OSELTAMIVIR 75 MG (TAMIFLU) CAPSULE PO SCH (09:00)
[2019-05-03] MEDS ORDERED: OSLT75C PO (09:03)
[2019-05-03 10:07] VITALS: BP 106/55
== END 2019-05-03 10:07 | disposition home or self-care (01) | DRG 832 ==
LOC: EDUNIT# 07:16 → ER 07:17 → 4TH 09:40
PROVIDERS: ADMIT Family Medicine; ATTEND Family Medicine
DX: O98.513 Other viral diseases complicating pregnancy, third trimester (principal); J10.1 Influenza due to other identified influenza virus with other respiratory manifestations; O99.513 Diseases of the respiratory system complicating pregnancy, third trimester; J45.901 Unspecified asthma with (acute) exacerbation; O99.013 Anemia complicating pregnancy, third trimester; O34.211 Maternal care for low transverse scar from previous cesarean delivery; O99.343 Other mental disorders complicating pregnancy, third trimester; F41.9 Anxiety disorder, unspecified; F32.9 Major depressive disorder, single episode, unspecified; Z3A.28 28 weeks gestation of pregnancy
CPT/HCPCS: 36415; 71045; 80053; 81000; 83605; 83735; 84703; 85007; 85025; 85027; 85610; 85730; 87040; 87088; 87804; 93041; 94640; G0378

== ENCOUNTER → 2019-06-26 | Outpatient (CLI) | payer MEDICAID ==
[~2019-06-26] MED LIST changes: +ALBU2.5V4 NEB; +BUDE180A IH; +FERR325T18 PO; +OSLT75C PO
[2019-06-26 13:11] LABS: BASOPHILS % (AUTO) 0 % (0-10); EOSINOPHILS # (AUTO) 0.2 10^3/uL (0.0-0.3); EOSINOPHILS % (AUTO) 2 % (0-10); HEMATOCRIT 27 % (35-52); HEMOGLOBIN 8.5 G/DL (11.5-16.0); LYMPHOCYTES # (AUTO) 2.1 X 10^3 (1.0-4.0); LYMPHOCYTES % (AUTO) 21 % (12-44); MEAN CORPUSCULAR HEMOGLOBIN 24 PG (25-34); MEAN CORPUSCULAR HGB CONC 31 G/DL (32-36); MEAN CORPUSCULAR VOLUME 77 FL (80-99); MEAN PLATELET VOLUME 9.2 FL (7.4-10.4); MONOCYTES # (AUTO) 0.7 X 10^3 (0.0-1.0); MONOCYTES % (AUTO) 8 % (0-12); NEUTROPHILS # (AUTO) 6.7 X 10^3 (1.8-7.8); NEUTROPHILS % (AUTO) 69 % (42-75); PLATELET COUNT 381 10^3/uL (130-400); RED CELL DISTRIBUTION WIDTH 14.9 % (10.0-14.5); WHITE BLOOD COUNT 9.7 10^3/uL (4.3-11.0)
[2019-06-26 13:34] LABS: ALANINE AMINOTRANSFERASE 8 U/L (0-55); ALBUMIN 3.4 GM/DL (3.2-4.5); ALKALINE PHOSPHATASE 151 U/L (40-136); BILIRUBIN,TOTAL 0.3 MG/DL (0.1-1.0); BUN/CREATININE RATIO 14; CALCIUM 8.4 MG/DL (8.5-10.1); CARBON DIOXIDE 20 MMOL/L (21-32); CHLORIDE 105 MMOL/L (98-107); CREATININE SERUM 0.57 MG/DL (0.60-1.30); GFR ESTIMATED > 60; GLUCOSE 81 MG/DL (70-105); POTASSIUM 3.8 MMOL/L (3.6-5.0); SODIUM 135 MMOL/L (135-145); TOTAL PROTEIN 6.6 GM/DL (6.4-8.2); URIC ACID 3.4 MG/DL (2.6-7.2)
== END ==
LOC: LAB 12:52
PROVIDERS: ATTEND Nurse Practitioner Family
DX: O13.3 Gestational [pregnancy-induced] hypertension without significant proteinuria, third trimester (principal); Z3A.36 36 weeks gestation of pregnancy
CPT/HCPCS: 36415; 80053; 83615; 84550; 85025

== ENCOUNTER 2019-07-11 10:15 | Outpatient (CLI) | payer MEDICAID ==
[~2019-07-11] VITALS: Ht 170 cm; Wt 86.0 kg
[2019-07-11] MEDS ORDERED: PREN1TAB79 PO (10:30)
== END 2019-07-11 10:53 | disposition home or self-care (01) ==
LOC: PREOP 10:15
PROVIDERS: ATTEND Obstetrics & Gynecology
DX: Z01.818 Encounter for other preprocedural examination (principal)

== ENCOUNTER 2019-08-21 00:05 | Inpatient (IN) | payer MEDICAID ==
[~2019-08-21] VITALS: Ht 170.2 cm; Wt 75.6 kg
[2019-08-21] VITALS (15 sets, daily range): BP systolic 102–127; BP diastolic 52–88
[~2019-08-21 00:05] MED LIST changes: +DCS100C PO; +HYDR-83 PO; +IBUP-844 PO; +PREN1TAB79 PO
[2019-08-21] MEDS ORDERED: methylPREDNISolone 125 MG (Solu-MEDROL) VIAL ONE (00:06)
[2019-08-21] MEDS ORDERED: MAGNESIUM 1 GM/100 ML IVPB 100 ML IV ONE ×3 (00:06→01:00)
[2019-08-21] MEDS ORDERED: RT-ALBUTEROL SULF 2.5 MG/3 ML PRE-MIX VIAL ONE (00:10)
[2019-08-21] MEDS ORDERED: RT-IPRATROPIUM (ATROVENT) 0.5MG/2.5ML AMP IH ONE ×2 (00:10→00:15)
--- OUTSIDE RECORDS SUMMARY | 2019-08-21 00:12 | XMS REPORT | Continuity of Care Document ---
Author Organization Unknown Address Unknown Phone Unavailable Allergies Active Description Code Type Severity Reaction Onset Reported/Identified Relationship to Patient Clinical Status Yes No Known Drug Allergies [id number] Drug Allergy Unknown N/A 07/11/2019 Medications There is no data. Problems Date Dx Coded Attending Type Code Diagnosis Diagnosed By 10/16/2018 KRYS PRIDE APRN Ot F32 .9 MAJOR DEPRESSIVE DISORDER, SINGLE EPISOD 10/16/2018 KRYS PRIDE APRN Ot F41 .9 ANXIETY DISORDER, UNSPECIFIED 10/16/2018 KRYS PRIDE APRN Ot H05.223 EDEMA OF BILATERAL ORBIT 10/16/2018 KRYS PRIDE APRN Ot H57.89 OTHER SPECIFIED DISORDERS OF EYE AND ADN 10/16/2018 KRYS PRIDE APRN Ot Z87.891 PERSONAL HISTORY OF NICOTINE DEPENDENCE 10/23/2018 KRYS PRIDE APRN Ot F32 .9 MAJOR DEPRESSIVE DISORDER, SINGLE EPISOD 10/23/2018 KRYS PRIDE APRN Ot F41 .9 ANXIETY DISORDER, UNSPECIFIED 10/23/2018 KRYS PRIDE APRN Ot H05.223 EDEMA OF BILATERAL ORBIT 10/23/2018 KRYS PRIDE APRN Ot H57.89 OTHER SPECIFIED DISORDERS OF EYE AND ADN 10/23/2018 KRYS PRIDE APRN Ot Z87.891 PERSONAL HISTORY OF NICOTINE DEPENDENCE 04/15/2019 RO SELLERS MD, Ot F32 .9 MAJOR DEPRESSIVE DISORDER, SINGLE EPISOD 04/15/2019 RO SELLERS MD Ot J45.21 MILD INTERMITTENT ASTHMA WITH (ACUTE) EX 04/15/2019 RO SELLERS MD Ot K04 .7 PERIAPICAL ABSCESS WITHOUT SINUS 04/15/2019 RO SELLERS MD Ot O99.342 OTH MENTAL DISORDERS COMP , SEC 04/15/2019 RO SELLERS MD Ot O99.512 DISEASES OF THE RESP SYS COMP , 04/15/2019 RO SELLERS MD Ot Z3A.25 25 WEEKS GESTATION OF 04/15/2019 RO SELLERS MD Ot F32 .9 MAJOR DEPRESSIVE DISORDER, SINGLE EPISOD 04/15/2019 RO SELLERS MD Ot J45.21 MILD INTERMITTENT ASTHMA WITH (ACUTE) EX 04/15/2019 RO SELLERS MD Ot K04 .7 PERIAPICAL ABSCESS WITHOUT SINUS 04/15/2019 RO SELLERS MD Ot O99.342 OTH MENTAL DISORDERS COMP , SEC 04/15/2019 RO SELLERS MD Ot O99.512 DISEASES OF THE RESP SYS COMP , 04/15/2019 RO SELLERS MD Ot Z3A.25 25 WEEKS GESTATION OF 04/16/2019 KRYS PRIDE APRN Ot F32 .9 MAJOR DEPRESSIVE DISORDER, SINGLE EPISOD 04/16/2019 KRYS PRIDE APRN Ot F41 .9 ANXIETY DISORDER, UNSPECIFIED 04/16/2019 KRYS PRIDE APRN Ot K04 .7 PERIAPICAL ABSCESS WITHOUT SINUS 04/16/2019 KRYS PRIDE APRN Ot K08.89 OTHER SPECIFIED DISORDERS OF TEETH AND S 04/16/2019 KRYS PRIDE APRN Ot O99.342 OT MENTAL DISORDERS COMP , SEC 04/16/2019 KRYS PRIDE APRN Ot O99.612 DISEASES OF THE DGSTV SYS COMP 04/16/2019 KRYS PRIDE APRN Ot Z3A.00 WEEKS OF GESTATION OF NOT SPEC 05/03/2019 DUANE QUACH MD Ot F32. 9 MAJOR DEPRESSIVE DISORDER, SINGLE EPISOD 05/03/2019 DUANE QUACH MD, Ot F41. 9 ANXIETY DISORDER, UNSPECIFIED 05/03/2019 DUANE QUACH MD, Ot J10. 1 FLU DUE TO [facility] IDENT INFLUENZA VIRUS W O 05/03/2019 DUANE QUACH MD, Ot J45.901 UNSPECIFIED ASTHMA WITH (ACUTE) EXACERBA 05/03/2019 DUANE QUACH MD Ot O34.211 MATERN CARE FOR LOW TRANSVERSE SCAR FROM 05/03/2019 DUANE QUACH MD Ot O98.513 OTHER VIRAL DISEASES COMPLICATING PREGNA 05/03/2019 DUANE QUACH MD Ot O99.013 ANEMIA COMPLICATING , THIRD TRI 05/03/2019 MAIN BARILLAS, DUANE Hameed Ot O99.343 OTH MENTAL DISORDERS COMPLICATING PREGNA 05/03/2019 MAIN BARILLAS, DUANE Hameed Ot O99.513 DISEASES OF THE RESP SYS COMP , 05/03/2019 MAIN BARILLAS, DUANE Hameed Ot Z3A. 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 Ot Z3A.36 36 WEEKS GESTATION OF 06/29/2019 BOOM GARCIAAH Christen COLEN Ot O13.3 GESTATIONAL HTN W/O SIGNIFICANT PROTEINU 06/29/2019 BOOM GARCIAAH Christen COLEN Ot Z3A.36 36 WEEKS GESTATION OF 07/11/2019 ABI CANTOR DO, Ot Z01.818 ENCOUNTER FOR OTHER PREPROCEDURAL EXAMIN 07/19/2019 ABI CANTOR DO Ot D6 2 ACUTE POSTHEMORRHAGIC ANEMIA 07/19/2019 ABI CANTOR DO Ot J45.909 UNSPECIFIED ASTHMA, UNCOMPLICATED 07/19/2019 ABI CANTOR DO Ot O34.211 MATERN CARE FOR LOW TRANSVERSE SCAR FROM 07/19/2019 ABI CANTOR DO, Ot O90.81 ANEMIA OF THE PUERPERIUM 07/19/2019 ABI CANTOR DO Ot O99.52 DISEASES OF THE RESPIRATORY SYSTEM COMPL 07/19/2019 ABI CANTOR DO Ot Z2 3 ENCOUNTER FOR IMMUNIZATION 07/19/2019 ABI CANTOR DO Ot Z37.0 SINGLE LIVE 07/19/2019 ABI CANTOR DO Ot Z3A.39 39 WEEKS GESTATION OF Procedures Code Description Performed By Per geri On [id number] EX TRACTION OF PRODUCTS OF CONCEPTION, 07/17/2019 Results Test Result Range CBC - 09/12/17 13:32 WHITE BLOOD CELL COUNT 8.7 Thousand/uL 3 .8-10.8 RED BLOOD CELL COUNT 4.18 Million/uL 3.8 0-5.10 HEMOGLOBIN 12.2 g/dL 11.7-15.5 HEMATOCRIT 36.0 % 35.0-45.0 MCV 86.1 fL 80.0-100.0 MCH 29.2 pg 27.0-33.0 MCHC 33.9 g/dL 32.0-36.0 RDW 13.7 % 11.0-15.0 PLATELET COUNT 437 Thousand/uL 140-400 MPV 9.2 fL 7.5-12.5 ABSOLUTE NEUTROPHILS 4602 cells/uL 1500- 7800 ABSOLUTE LYMPHOCYTES 3202 cells/uL 850-3 900 ABSOLUTE MONOCYTES 722 cells/uL 200-950 ABSOLUTE EOSINOPHILS 104 cells/uL 15-500 ABSOLUTE BASOPHILS 70 cells/uL 0-200 NEUTROPHILS 52.9 % NRG LYMPHOCYTES 36.8 % NRG MONOCYTES 8.3 % NRG EOSINOPHILS 1.2 % NRG BASOPHILS 0.8 % NRG CBC - 12/20/18 13:54 WHITE BLOOD CELL COUNT 8.7 Thousand/uL 3 .8-10.8 RED BLOOD CELL COUNT 4.59 Million/uL 3.8 0-5.10 HEMOGLOBIN 12.4 g/dL 11.7-15.5 HEMATOCRIT 38.1 % 35.0-45.0 MCV 83.0 fL 80.0-100.0 MCH 27.0 pg 27.0-33.0 MCHC 32.5 g/dL 32.0-36.0 RDW 15.0 % 11.0-15.0 PLATELET COUNT 405 Thousand/uL 140-400 MPV 9.5 fL 7.5-12.5 ABSOLUTE NEUTROPHILS 6186 cells/uL 1500- 7800 ABSOLUTE LYMPHOCYTES 1879 cells/uL 850-3 900 ABSOLUTE MONOCYTES 513 cells/uL 200-950 ABSOLUTE EOSINOPHILS 70 cells/uL 15-500 ABSOLUTE BASOPHILS 52 cells/uL 0-200 NEUTROPHILS 71.1 % NRG LYMPHOCYTES 21.6 % NRG MONOCYTES 5.9 % NRG EOSINOPHILS 0.8 % NRG BASOPHILS 0.6 % NRG BLOOD TPYE/RH FACTOR - 12/20/18 13:54 ABO GROUP A NRG RH TYPE RH(D) POSITIVE NRG ANTIBODY SCREEN - 12/20/18 13:54 ANTIBODY SCREEN, RBC W/REFL ID, TITER AND AG NO ANTIBODIES DETECTED NRG TSH - 12/20/18 13:54 TSH 1.02 mIU/L NRG RUBELLA IMMUNE STATUS - 12/20/18 13:54 RUBELLA ANTIBODY (IGG) 9.18 index NRG CULTURE, URINE - 12/20/18 13:54 CULTURE, URINE, ROUTINE SEE NOTE NRG CULTURE, GENITAL - 12/20/18 13:54 CULTURE, GENITAL SEE NOTE NRG SUREPATH PAP RFX HPV mRNA E6/E7 - 13:54 CLINICAL INFORMATION: NRG LMP: 10/16/18 NRG PREV. PAP: 2013 NRG PREV. 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: NRG INFECTION: NRG COMMENT NRG Arterial blood gas measurement - 0 13:00 Blood pCO2 23 mm[Hg] 35-45 Blood pO2 145 mm[Hg] 79-93 Arterial blood bicarbonate measurement (moles/volume) 17 mmol/L 23-27 Arterial blood base excess by calculation -6.4 mmo l/L -2.5-2.5 Arterial blood oxygen saturation measurement 93 % 94-100 * Inhaled oxygen flow rate NA NRG Arterial blood pH measurement with patient temperature correction 7.47 7.37-7.43 Arterial blood carbon dioxide, total measurement (mole s/volume) 17.4 mmol/L 21.0-31.0 Body site NA NRG Assessment of wrist artery patency prior to arterial p uncture NA NRG Setting of ventilation mode NA NR G Measurement of body temperature 36.3 NRG Complete blood count (CBC) with automate d white blood cell (WBC) differential - 04/13/19 13:15 Blood leukocytes automated count (number/volume) 12.7 10*3/uL 4.3-11.0 Blood erythrocytes automated count (number/volume) 3.60 10*6/uL 4.35-5.85 Venous blood hemoglobin measurement (mass/volume) 10.1 g/dL 11.5-16.0 Blood hematocrit (volume fraction) 30 % 35-52 Automated erythrocyte mean corpuscular volume 84 [ foz_us] 80-99 Automated erythrocyte mean corpuscular h emoglobin (mass per erythrocyte) 28 pg 25-34 Automated erythrocyte mean corpuscular h emoglobin concentration measurement (mass/volume) 33 g/dL 32-36 Automated erythrocyte distribution width ratio 14. 7 % 10.0- 14.5 Automated blood platelet count (count/volume) 450 10*3/uL 130-400 Automated blood platelet mean volume measurement 8.4 [foz_us] 7.4-10.4 Automated blood neutrophils/100 leukocytes 69 % 42-75 Automated blood lymphocytes/100 leukocytes 15 % 12-44 Blood monocytes/100 leukocytes 5 % 0-12 Automated blood eosinophils/100 leukocytes 11 % 0-10 Automated blood basophils/100 leukocytes 0 % 0-10 Blood neutrophils automated count (number/volume) 8.7 10*3 1.8-7.8 Blood lymphocytes automated count (number/volume) 2.0 10*3 1.0-4.0 Blood monocytes automated count (number/volume) 0. 6 10*3 0.0-1.0 Automated eosinophil count 1.4 10*3/uL 0 .0-0.3 Automated blood basophil count (count/volume) 0.1 10*3/uL 0.0-0.1 Influenza virus A and B antigen detectio n - 04/13/19 13:15 FLU RESULT NEGATIVE FOR INFLUENZA A AND B ANTIGENS BY [facility] Comprehensive metabolic panel - 04/13/19 13:15 Serum or plasma sodium measurement (moles/volume) 134 mmol/L 135-145 Serum or plasma potassium measurement (moles/volume) 3.9 mmol/L 3.6-5.0 Serum or plasma chloride measurement (moles/volume) 108 mmol/L 98-107 Carbon dioxide 16 mmol/L 21-32 Serum or plasma anion gap determination (moles/volume) 10 mmol/L 5-14 Serum or plasma urea nitrogen measurement (mass/volume ) 12 mg/dL 7-18 Serum or plasma creatinine measurement (mass/volume) 0.58 mg/dL 0.60-1.30 Serum or plasma urea nitrogen/creatinine mass ratio 21 NRG Serum or plasma creatinine measurement w ith calculation of estimated glomerular filtration rate > NR Serum or plasma glucose measurement (mass/volume) 126 mg/dL 70-105 Serum or plasma calcium measurement (mass/volume) 8.8 mg/dL 8.5-10.1 Serum or plasma total bilirubin measurement (mass/volu me) 0.1 mg/dL 0.1-1.0 Serum or plasma alkaline phosphatase jacob surement (enzymatic activity/volume) 138 U/L 40-136 Serum or plasma aspartate aminotransfera se measurement (enzymatic activity/volume) 11 U/L 5-34 Serum or plasma alanine aminotransferase measurement (enzymatic activity/volume) 23 U/L 0-55 Serum or plasma protein measurement (mass/volume) 7.1 g/dL 6.4-8.2 Serum or plasma albumin measurement (mass/volume) 3.6 g/dL 3.2-4.5 CALCIUM CORRECTED 9.1 mg/dL 8.5-10.1 Automated blood complete blood count ( mogram) panel - 04/14/19 05:37 Blood leukocytes automated count (number/volume) 15.5 10*3/uL 4.3-11.0 Blood erythrocytes automated count (number/volume) 3.45 10*6/uL 4.35-5.85 Venous blood hemoglobin measurement (mass/volume) 9.7 g/dL 11.5-16.0 Blood hematocrit (volume fraction) 29 % 35-52 Automated erythrocyte mean corpuscular volume 85 [ foz_us] 80-99 Automated erythrocyte mean corpuscular h emoglobin (mass per erythrocyte) 28 pg 25-34 Automated erythrocyte mean corpuscular h emoglobin concentration measurement (mass/volume) 33 g/dL 32-36 Automated erythrocyte distribution width ratio 14. 5 % 10.0- 14.5 Automated blood platelet count (count/volume) 411 10*3/uL 130-400 Automated blood platelet mean volume measurement 8.9 [foz_us] 7.4-10.4 CBC - 04/17/19 17:03 WHITE BLOOD CELL COUNT 12.9 Thousand/uL 3.8-10.8 RED BLOOD CELL COUNT 3.42 Million/uL 3.8 0-5.10 HEMOGLOBIN 9.9 g/dL 11.7-15.5 HEMATOCRIT 29.0 % 35.0-45.0 MCV 84.8 fL 80.0-100.0 MCH 28.9 pg 27.0-33.0 MCHC 34.1 g/dL 32.0-36.0 RDW 13.5 % 11.0-15.0 PLATELET COUNT 504 Thousand/uL 140-400 MPV 9.0 fL 7.5-12.5 ABSOLUTE NEUTROPHILS 9185 cells/uL 1500- 7800 ABSOLUTE LYMPHOCYTES 1922 cells/uL 850-3 900 ABSOLUTE MONOCYTES 851 cells/uL 200-950 ABSOLUTE EOSINOPHILS 877 cells/uL 15-500 ABSOLUTE BASOPHILS 65 cells/uL 0-200 NEUTROPHILS 71.2 % NRG LYMPHOCYTES 14.9 % NRG MONOCYTES 6.6 % NRG EOSINOPHILS 6.8 % NRG BASOPHILS 0.5 % NRG Complete blood count (CBC) with automate d white blood cell (WBC) differential - 05/02/19 07:30 Blood leukocytes automated count (number/volume) 8.6 10*3/uL 4.3-11.0 Blood erythrocytes automated count (number/volume) 3.24 10*6/uL 4.35-5.85 Venous blood hemoglobin measurement (mass/volume) 8.9 g/dL 11.5-16.0 Blood hematocrit (volume fraction) 27 % 35-52 Automated erythrocyte mean corpuscular volume 84 [ foz_us] 80-99 Automated erythrocyte mean corpuscular h emoglobin (mass per erythrocyte) 27 pg 25-34 Automated erythrocyte mean corpuscular h emoglobin concentration measurement (mass/volume) 33 g/dL 32-36 Automated erythrocyte distribution width ratio 14. 0 % 10.0- 14.5 Automated blood platelet count (count/volume) 371 10*3/uL 130-400 Automated blood platelet mean volume measurement 8.7 [foz_us] 7.4-10.4 Automated blood neutrophils/100 leukocytes 78 % 42-75 Automated blood lymphocytes/100 leukocytes 8 % 12-44 Blood monocytes/100 leukocytes 7 % 0-12 Automated blood eosinophils/100 leukocytes 7 % 0-10 Automated blood basophils/100 leukocytes 1 % 0-10 Blood neutrophils automated count (number/volume) 6.7 10*3 1.8-7.8 Blood lymphocytes automated count (number/volume) 0.7 10*3 1.0-4.0 Blood monocytes automated count (number/volume) 0. 6 10*3 0.0-1.0 Automated eosinophil count 0.6 10*3/uL 0 .0-0.3 Automated blood basophil count (count/volume) 0.1 10*3/uL 0.0-0.1 Serum or plasma choriogonadotropin (preg kingston test) detection - 05/02/19 07:30 Serum or plasma choriogonadotropin ( test) de tection POSITIVE NEGATIVE PT panel in platelet poor plasma by coag ulation assay - 05/02/19 07:30 Prothrombin time (PT) in platelet poor plasma by coagu lation assay 13.4 s 12.2-14.7 INR in platelet poor plasma or blood by coagulation as say 1.0 0.8-1.4 Activated partial thromboplastin time (a PTT) in platelet poor plasma bycoagulation assay - 05/02/19 07:30 Activated partial thromboplastin time (a PTT) in platelet poor plasma bycoagulation assay 26 s 24-35 Blood lactic acid measurement (moles/vol ume) - 05/02/19 07:30 Blood lactic acid measurement (moles/volume) 1.47 mmol/L 0.50-2.00 Comprehensive metabolic panel - 05/02/19 07:30 Serum or plasma sodium measurement (moles/volume) 135 mmol/L 135-145 Serum or plasma potassium measurement (moles/volume) 3.4 mmol/L 3.6-5.0 Serum or plasma chloride measurement (moles/volume) 107 mmol/L 98-107 Carbon dioxide 20 mmol/L 21-32 Serum or plasma anion gap determination (moles/volume) 8 mmol/L 5-14 Serum or plasma urea nitrogen measurement (mass/volume ) 5 mg/dL 7-18 Serum or plasma creatinine measurement (mass/volume) 0.55 mg/dL 0.60-1.30 Serum or plasma urea nitrogen/creatinine mass ratio 9 NRG Serum or plasma creatinine measurement w ith calculation of estimated glomerular filtration rate > NRG Serum or plasma glucose measurement (mass/volume) 97 mg/dL 70-105 Serum or plasma calcium measurement (mass/volume) 8.4 mg/dL 8.5-10.1 Serum or plasma total bilirubin measurement (mass/volu me) 0.2 mg/dL 0.1-1.0 Serum or plasma alkaline phosphatase jacob surement (enzymatic activity/volume) 120 U/L 40-136 Serum or plasma aspartate aminotransfera se measurement (enzymatic activity/volume) 11 U/L 5-34 Serum or plasma alanine aminotransferase measurement (enzymatic activity/volume) 9 U/L 0-55 Serum or plasma protein measurement (mass/volume) 6.7 g/dL 6.4-8.2 Serum or plasma albumin measurement (mass/volume) 3.5 g/dL 3.2-4.5 CALCIUM CORRECTED 8.8 mg/dL 8.5-10.1 Magnesium - 05/02/19 07:30 Magnesium 1.9 mg/dL 1.6-2.4 Manual absolute plasma cell count - 04/05 12/22 07:30 Blood monocytes/100 leukocytes 6 % NRG Manual blood segmented neutrophils/100 leukocytes 75 % NRG Blood band neutrophils/100 leukocytes 1 % NRG Manual blood lymphocytes/100 leukocytes 12 % NRG Manual eosinophils/100 leukocytes in nose 6 % NRG Manual blood basophils/100 leukocytes 0 % NRG Blood erythrocyte morphology finding identification NORMAL NRG Bacterial blood culture - 05/02/19 07:30 Bacterial blood culture NG NRG Influenza virus A and B antigen detectio n - 05/02/19 07:38 CALL POSITIVES (F1 HELP) CALLED TO MELISSA AT 0816 NRG FLU RESULT POSITIVE FOR INFLUENZA A ANT IGEN, NEG FOR B ANTIGEN, BY IA NRG Bacterial blood culture - 05/02/19 08:34 Bacterial blood culture NG NRG Complete urinalysis with reflex to cultu re - 05/02/19 09:11 Urine color determination YELLOW NRG Urine clarity determination CLEAR NR G Urine pH measurement by test strip 8.0 5-9 Specific gravity of urine by test strip 1.015 1.016-1.022 Urine protein assay by test strip, semi-quantitative NEGATIVE NEGATIVE Urine glucose detection by automated test strip NE GATIVE NEGATIVE Erythrocytes detection in urine sediment by light micr oscopy NEGATIVE NEGATIVE Urine ketones detection by automated test strip NE GATIVE NEGATIVE Urine nitrite detection by test strip NEGATIVE NEGATIVE Urine total bilirubin detection by test strip NEGA TIVE NEGATIVE Urine urobilinogen measurement by automated test strip (mass/volume) 0.2 mg/dL < = 1.0 Urine leukocyte esterase detection by dipstick NEG ATIVE NEGATIVE Automated urine sediment erythrocyte cou nt by microscopy (number/high power field) NONE NRG Automated urine sediment leukocyte count by microscopy (number/high power field) NONE NRG Bacteria detection in urine sediment by light microsco py TRACE NRG Squamous epithelial cells detection in u rine sediment by light microscopy 0-2 NRG Crystals detection in urine sediment by light microsco py NONE NRG Casts detection in urine sediment by light microscopy NONE NRG Mucus detection in urine sediment by light microscopy NEGATIVE NRG Complete urinalysis with reflex to culture NO NRG Bacterial urine culture - 05/02/19 09:11 Bacterial urine culture NG NRG Complete blood count (CBC) with automate d white blood cell (WBC) differential - 05/03/19 04:35 Blood leukocytes automated count (number/volume) 10.0 10*3/uL 4.3-11.0 Blood erythrocytes automated count (number/volume) 2.92 10*6/uL 4.35-5.85 Venous blood hemoglobin measurement (mass/volume) 8.1 g/dL 11.5-16.0 Blood hematocrit (volume fraction) 25 % 35-52 Automated erythrocyte mean corpuscular volume 85 [ foz_us] 80-99 Automated erythrocyte mean corpuscular h emoglobin (mass per erythrocyte) 28 pg 25-34 Automated erythrocyte mean corpuscular h emoglobin concentration measurement (mass/volume) 33 g/dL 32-36 Automated erythrocyte distribution width ratio 13. 9 % 10.0- 14.5 Automated blood platelet count (count/volume) 354 10*3/uL 130-400 Automated blood platelet mean volume measurement 8.8 [foz_us] 7.4-10.4 Automated blood neutrophils/100 leukocytes 88 % 42-75 Automated blood lymphocytes/100 leukocytes 5 % 12-44 Blood monocytes/100 leukocytes 7 % 0-12 Automated blood eosinophils/100 leukocytes 0 % 0-10 Automated blood basophils/100 leukocytes 0 % 0-10 Blood neutrophils automated count (number/volume) 8.8 10*3 1.8-7.8 Blood lymphocytes automated count (number/volume) 0.5 10*3 1.0-4.0 Blood monocytes automated count (number/volume) 0. 7 10*3 0.0-1.0 Automated eosinophil count 0.0 10*3/uL 0 .0-0.3 Automated blood basophil count (count/volume) 0.0 10*3/uL 0.0-0.1 Comprehensive metabolic panel - 05/03/19 04:35 Serum or plasma sodium measurement (moles/volume) 136 mmol/L 135-145 Serum or plasma potassium measurement (moles/volume) 4.0 mmol/L 3.6-5.0 Serum or plasma chloride measurement (moles/volume) 112 mmol/L 98-107 Carbon dioxide 14 mmol/L 21-32 Serum or plasma anion gap determination (moles/volume) 10 mmol/L 5-14 Serum or plasma urea nitrogen measurement (mass/volume ) 4 mg/dL 7-18 Serum or plasma creatinine measurement (mass/volume) 0.56 mg/dL 0.60-1.30 Serum or plasma urea nitrogen/creatinine mass ratio 7 NRG Serum or plasma creatinine measurement w ith calculation of estimated glomerular filtration rate > NRG Serum or plasma glucose measurement (mass/volume) 169 mg/dL 70-105 Serum or plasma calcium measurement (mass/volume) 8.3 mg/dL 8.5-10.1 Serum or plasma total bilirubin measurement (mass/volu me) 0.1 mg/dL 0.1-1.0 Serum or plasma alkaline phosphatase jacob surement (enzymatic activity/volume) 109 U/L 40-136 Serum or plasma aspartate aminotransfera se measurement (enzymatic activity/volume) 11 U/L 5-34 Serum or plasma alanine aminotransferase measurement (enzymatic activity/volume) 9 U/L 0-55 Serum or plasma protein measurement (mass/volume) 6.1 g/dL 6.4-8.2 Serum or plasma albumin measurement (mass/volume) 3.1 g/dL 3.2-4.5 CALCIUM CORRECTED 9.0 mg/dL 8.5-10.1 CBC - 06/12/19 12:26 WHITE BLOOD CELL COUNT 9.7 Thousand/uL 3 .8-10.8 RED BLOOD CELL COUNT 3.44 Million/uL 3.8 0-5.10 HEMOGLOBIN 8.7 g/dL 11.7-15.5 HEMATOCRIT 27.1 % 35.0-45.0 MCV 78.8 fL 80.0-100.0 MCH 25.3 pg 27.0-33.0 MCHC 32.1 g/dL 32.0-36.0 RDW 14.3 % 11.0-15.0 PLATELET COUNT 356 Thousand/uL 140-400 MPV 10.1 fL 7.5-12.5 ABSOLUTE NEUTROPHILS 6974 cells/uL 1500- 7800 ABSOLUTE LYMPHOCYTES 1765 cells/uL 850-3 900 ABSOLUTE MONOCYTES 689 cells/uL 200-950 ABSOLUTE EOSINOPHILS 213 cells/uL 15-500 ABSOLUTE BASOPHILS 58 cells/uL 0-200 NEUTROPHILS 71.9 % NRG LYMPHOCYTES 18.2 % NRG MONOCYTES 7.1 % NRG EOSINOPHILS 2.2 % NRG BASOPHILS 0.6 % NRG Complete blood count (CBC) with automate d white blood cell (WBC) differential - 06/26/19 13:05 Blood leukocytes automated count (number/volume) 9.7 10*3/uL 4.3-11.0 Blood erythrocytes automated count (number/volume) 3.58 10*6/uL 4.35-5.85 Venous blood hemoglobin measurement (mass/volume) 8.5 g/dL 11.5-16.0 Blood hematocrit (volume fraction) 27 % 35-52 Automated erythrocyte mean corpuscular volume 77 [ foz_us] 80-99 Automated erythrocyte mean corpuscular h emoglobin (mass per erythrocyte) 24 pg 25-34 Automated erythrocyte mean corpuscular h emoglobin concentration measurement (mass/volume) 31 g/dL 32-36 Automated erythrocyte distribution width ratio 14. 9 % 10.0- 14.5 Automated blood platelet count (count/volume) 381 10*3/uL 130-400 Automated blood platelet mean volume measurement 9.2 [foz_us] 7.4-10.4 Automated blood neutrophils/100 leukocytes 69 % 42-75 Automated blood lymphocytes/100 leukocytes 21 % 12-44 Blood monocytes/100 leukocytes 8 % 0-12 Automated blood eosinophils/100 leukocytes 2 % 0-10 Automated blood basophils/100 leukocytes 0 % 0-10 Blood neutrophils automated count (number/volume) 6.7 10*3 1.8-7.8 Blood lymphocytes automated count (number/volume) 2.1 10*3 1.0-4.0 Blood monocytes automated count (number/volume) 0. 7 10*3 0.0-1.0 Automated eosinophil count 0.2 10*3/uL 0 .0-0.3 Automated blood basophil count (count/volume) 0.0 10*3/uL 0.0-0.1 Comprehensive metabolic panel - 06/26/19 13:05 Serum or plasma sodium measurement (moles/volume) 135 mmol/L 135-145 Serum or plasma potassium measurement (moles/volume) 3.8 mmol/L 3.6-5.0 Serum or plasma chloride measurement (moles/volume) 105 mmol/L 98-107 Carbon dioxide 20 mmol/L 21-32 Serum or plasma anion gap determination (moles/volume) 10 mmol/L 5-14 Serum or plasma urea nitrogen measurement (mass/volume ) 8 mg/dL 7-18 Serum or plasma creatinine measurement (mass/volume) 0.57 mg/dL 0.60-1.30 Serum or plasma urea nitrogen/creatinine mass ratio 14 NRG Serum or plasma creatinine measurement w ith calculation of estimated glomerular filtration rate > NRG Serum or plasma glucose measurement (mass/volume) 81 mg/dL 70-105 Serum or plasma calcium measurement (mass/volume) 8.4 mg/dL 8.5-10.1 Serum or plasma total bilirubin measurement (mass/volu me) 0.3 mg/dL 0.1-1.0 Serum or plasma alkaline phosphatase jacob surement (enzymatic activity/volume) 151 U/L 40-136 Serum or plasma aspartate aminotransfera se measurement (enzymatic activity/volume) 10 U/L 5-34 Serum or plasma alanine aminotransferase measurement (enzymatic activity/volume) 8 U/L 0-55 Serum or plasma protein measurement (mass/volume) 6.6 g/dL 6.4-8.2 Serum or plasma albumin measurement (mass/volume) 3.4 g/dL 3.2-4.5 CALCIUM CORRECTED 8.9 mg/dL 8.5-10.1 Serum or plasma uric acid measurement (m ass/volume) - 06/26/19 13:05 Serum or plasma uric acid measurement (mass/volume) 3.4 mg/dL 2.6-7.2 Serum ragweed IgE antibody assay - 06/25 13:05 Serum ragweed IgE antibody assay 101 U/L 125-220 CULTURE, GROUP B STREP (VAGINAL) - 06/25 19:00 STREPTOCOCCUS, GROUP B CULTURE SEE NOTE NRG URINE PROTEIN 24 HOUR - 06/28/19 12:34 PROTEIN, TOTAL, 24 HR UR 112 mg/24 h <15 0 Methicillin resistant Staphylococcus aur eus (MRSA) screening culture - 07/17/19 11:00 Methicillin resistant Staphylococcus aureus (MRSA) scr eening culture NEG NRG Complete blood count (CBC) with automate d white blood cell (WBC) differential - 07/17/19 11:13 Blood leukocytes automated count (number/volume) 9.9 10*3/uL 4.3-11.0 Blood erythrocytes automated count (number/volume) 3.71 10*6/uL 4.35-5.85 Venous blood hemoglobin measurement (mass/volume) 8.3 g/dL 11.5-16.0 Blood hematocrit (volume fraction) 27 % 35-52 Automated erythrocyte mean corpuscular volume 73 [ foz_us] 80-99 Automated erythrocyte mean corpuscular h emoglobin (mass per erythrocyte) 22 pg 25-34 Automated erythrocyte mean corpuscular h emoglobin concentration measurement (mass/volume) 31 g/dL 32-36 Automated erythrocyte distribution width ratio 15. 8 % 10.0- 14.5 Automated blood platelet count (count/volume) 397 10*3/uL 130-400 Automated blood platelet mean volume measurement 9.9 [foz_us] 7.4-10.4 Automated blood neutrophils/100 leukocytes 72 % 42-75 Automated blood lymphocytes/100 leukocytes 18 % 12-44 Blood monocytes/100 leukocytes 7 % 0-12 Automated blood eosinophils/100 leukocytes 4 % 0-10 Automated blood basophils/100 leukocytes 0 % 0-10 Blood neutrophils automated count (number/volume) 7.1 10*3 1.8-7.8 Blood lymphocytes automated count (number/volume) 1.7 10*3 1.0-4.0 Blood monocytes automated count (number/volume) 0. 7 10*3 0.0-1.0 Automated eosinophil count 0.4 10*3/uL 0 .0-0.3 Automated blood basophil count (count/volume) 0.0 10*3/uL 0.0-0.1 Blood type T Indirect antibody screen pa ashu - 07/17/19 11:13 WRISTBAND NUMBER [id number] NRG ABO+Rh group AP NRG Blood group antibody screen NEGATIVE NR G Complete blood count (CBC) with automate d white blood cell (WBC) differential - 07/18/19 04:46 Blood leukocytes automated count (number/volume) 13.6 10*3/uL 4.3-11.0 Blood erythrocytes automated count (number/volume) 3.53 10*6/uL 4.35-5.85 Venous blood hemoglobin measurement (mass/volume) 7.9 g/dL 11.5-16.0 Blood hematocrit (volume fraction) 26 % 35-52 Automated erythrocyte mean corpuscular volume 72 [ foz_us] 80-99 Automated erythrocyte mean corpuscular h emoglobin (mass per erythrocyte) 22 pg 25-34 Automated erythrocyte mean corpuscular h emoglobin concentration measurement (mass/volume) 31 g/dL 32-36 Automated erythrocyte distribution width ratio 16. 1 % 10.0- 14.5 Automated blood platelet count (count/volume) 395 10*3/uL 130-400 Automated blood platelet mean volume measurement 10.0 [foz_us] 7.4-10.4 Automated blood neutrophils/100 leukocytes 70 % 42-75 Automated blood lymphocytes/100 leukocytes 18 % 12-44 Blood monocytes/100 leukocytes 8 % 0-12 Automated blood eosinophils/100 leukocytes 3 % 0-10 Automated blood basophils/100 leukocytes 0 % 0-10 Blood neutrophils automated count (number/volume) 9.5 10*3 1.8-7.8 Blood lymphocytes automated count (number/volume) 2.5 10*3 1.0-4.0 Blood monocytes automated count (number/volume) 1. 1 10*3 0.0-1.0 Automated eosinophil count 0.4 10*3/uL 0 .0-0.3 Automated blood basophil count (count/volume) 0.1 10*3/uL 0.0-0.1 Encounters ACCT No. Visit Date/Time Discharge Status Pt. Type Provider Facility Loc./Unit Complaint [id number] 12/25/2015 16:55:02 12/25/2015 23:59: 59 CLS Outpatient Jose Manuel Pace [id number] 12/01/2015 16:37:10 12/01/2015 23:59: 59 CLS Outpatient Jose Manuel Pace [id number] 10/18/2015 14:41:33 10/18/2015 23:59: 59 CLS Outpatient Mervat Dumont [id number] 05/29/2015 20:52:56 05/29/2015 23:59: 59 CLS Outpatient Carmen Jeff [id number] 05/26/2015 17:39:30 05/26/2015 23:59: 59 CLS Outpatient Carmen Jeff [id number] 05/14/2015 14:45:27 05/14/2015 23:59: 59 CLS Outpatient Carmen Jeff [id number] 04/05/2015 20:41:16 04/05/2015 23:59: 59 CLS Outpatient Mervat Dumont [id number] 07/17/2019 09:50:00 12:50:00 DIS Inpatient ABI CANTOR DO [facility] WS PREVIOUS [id number] 07/11/2019 10:15:00 10:53:00 DIS Outpatient ABI CANTOR DO [facility] PREOP PREVIOUS [id number] 06/26/2019 12:52:00 03/24/2 020 23:59:59 CLS Outpatient ABHISHEK GARCIA STEEL 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 [facility] LAB [id number] 05/02/2019 14:40:00 020 10:07:00 DIS Outpatient DUANE QUACH MD [facility] 4TH INFLUENZA A;7 MONTH GESTATION;SEPSIS;ASTHMA EXACER [id number] 04/13/2019 14:15:00 020 13:45:00 DIS Inpatient RO SELLERS MD [facility] 4TH ASTHMA W EXACERBATION, HX OF PREG,HYPOXIC [id number] 04/09/2019 19:41:00 020 20:18:00 DIS Outpatient KRYS PRIDE STE[employer] 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 [facility] ER DENTAL PAIN/6 MO PREG [id number] 10/16/2018 14:00:00 019 15:10:00 DIS Emergency KRYS PRIDE STEEL 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 [facility] ER EYE SWELLING [id number] 08/21/2019 00:07:[address] Emergency MARCE HERRERA MD [facility] ER SOA,ANXIETY [id number] 07/25/2019 14:00:00 07/25/2019 23:59:5 9 CLS Outpatient KENNY CABRERA [facility] [id number] 06/28/2019 12:20:00 Document Registration [id number] 06/26/2019 11:40:00 Document Registration [id number] 06/12/2019 11:40:00 Document Registration [id number] 04/17/2019 15:40:00 Document Registration [id number] 12/20/2018 13:20:00 Document Registration [id number] 09/12/2017 11:20:00 Document Registration [id number] 08/15/2015 10:55:09 08/14 10:55:09 DIS Outpatient [id number] 08/15/2015 10:54:48 08/14 10:54:48 DIS Outpatient [id number] 07/05/2013 16:54:00 07/05 16:54:00 DIS Outpatient [id number] 06/22/2013 09:33:18 06/22 09:33:18 Outpatient [id number] 06/22/2013 09:06:52 06/22 09:06:52 Outpatient
[2019-08-21] MEDS ORDERED: RT-ALBUTEROL SULF 2.5 MG/3 ML PRE-MIX VIAL INH STA (00:14)
[2019-08-21] MEDS ORDERED: methylPREDNISolone 125 MG (Solu-MEDROL) VIAL IM ONE (00:15)
[2019-08-21 00:23] LABS: BASOPHILS # (AUTO) 0.1 10^3/uL (0.0-0.1); BASOPHILS % (AUTO) 1 % (0-10); EOSINOPHILS # (AUTO) 1.5 10^3/uL (0.0-0.3); EOSINOPHILS % (AUTO) 15 % (0-10); HEMATOCRIT 37 % (35-52); LYMPHOCYTES # (AUTO) 3.6 X 10^3 (1.0-4.0); LYMPHOCYTES % (AUTO) 36 % (12-44); MEAN CORPUSCULAR HEMOGLOBIN 25 PG (25-34); MEAN CORPUSCULAR HGB CONC 32 G/DL (32-36); MEAN CORPUSCULAR VOLUME 76 FL (80-99); MEAN PLATELET VOLUME 9.5 FL (7.4-10.4); MONOCYTES % (AUTO) 10 % (0-12); NEUTROPHILS # (AUTO) 3.7 X 10^3 (1.8-7.8); NEUTROPHILS % (AUTO) 38 % (42-75); PLATELET COUNT 445 10^3/uL (130-400); RED CELL DISTRIBUTION WIDTH 22.5 % (10.0-14.5); WHITE BLOOD COUNT 9.8 10^3/uL (4.3-11.0)
[2019-08-21 00:25] LABS: ABG BASE EXCESS -2.2 MMOL/L (-2.5-2.5); ABG OXYGEN SATURATION 83 % (94-100); ABG PCO2 38 MMHG (35-45); ABG PH 7.39 (7.37-7.43); ABG PO2 65 MMHG (79-93); ABG TCO2 23.2 MMOL/L (21.0-31.0)
[2019-08-21 00:26] LABS: ALLENS TEST YES-POS; INSPIRED O2 4L; PATIENT TEMP 36.8; VENTILATOR NO
--- NOTE | 2019-08-21 00:29 | ED Respiratory ---
General Stated Complaint: SOA,ANXIETY Source: patient Exam Limitations: no limitations History of Present Illness Date Seen by Provider: August 21, 2019 Time Seen by Provider: 00:07 Initial Comments Here by EMS with report of severe asthma attack. Patient has long-standing history of asthma and has had previous significant exacerbations such as this although she states this is her worst one. She has never had to be intubated. Noted that the asthma started about an hour ago and she did an albuterol. She had to do a repeat nebulizer pretty quickly and did several more puffs of her metered-dose albuterol inhaler. This did not help and she called EMS. EMS arrived and noted that her O2 sat was in the 80s. They did initiate oxygen and DuoNeb at that time with albuterol. Rapidly transported here. Patient is unsure of what caused exacerbation. Denies recent illness. States she has been at her house the last month. She did have a baby approximately a month ago. She does breast feed. Denies nausea or vomiting but has had posttussive gagging. He is coughing and states this is typical of her asthma exacerbation. She has had to be admitted previously due to asthma exacerbation. Timing/Duration: this evening, getting worse Severity: severe Prior Episodes/Possible Cause: occasional episodes Modifying Factors: Improves With Albuterol Nebulizer, Improves With Oxygen Associated Symptoms: cough; No fever/chills, No muscle aches, No nasal congestion, No nasal drainage; shortness of breath; No sore throat; wheezing Allergies and Home Medications Allergies Coded Allergies: No Known Drug Allergies (Unverified , 07/11/19) Home Medications Albuterol Sulfate 1 Puff Puff, 2 PUFF IH Q4H PRN for WHEEZING 1 PUFF = 90 MCG Prescribed by: RO SELLERS on 04/15/19 1131 Albuterol Sulfate 2.5 Mg/3 Ml Vial.neb, 2.5 MG NEB Q4H PRN for SHORTNESS OF BREATH, (Reported) Budesonide 180 Mcg Aer.pow.ba, 1 PUFF IH BID, (Reported) Docusate Sodium 100 Mg Capsule, 100 MG PO BID PRN for CONSTIPATION-1ST LINE Prescribed by: ABI CANTOR on 07/18/19925 Ferrous Sulfate 325 Mg Tablet, 325 MG PO BID WITH MEALS Prescribed by: ABI CANTOR on 07/18/19925 Hydrocodone/Acetaminophen 1 Each Tablet, 1-2 TAB PO Q6HR PRN for PAIN-MODERATE (5-7) Prescribed by: ABI CANTOR on 07/18/19925 Ibuprofen 600 Mg Tablet, 600 MG PO Q6H Prescribed by: ABI CANTOR on 07/18/19925 Vit W-Ca,Fe,FA(<1 mg) 1 Each Tablet, 1 EACH PO DAILY, (Reported) Patient Home Medication List Home Medication List Reviewed: Yes Review of Systems Review of Systems Constitutional: see HPI; No chills, No fever EENTM: no symptoms reported Respiratory: see HPI, cough, dyspnea on exertion, short of breath, wheezing Cardiovascular: no symptoms reported Gastrointestinal: see HPI; No abdominal pain, No diarrhea Genitourinary: no symptoms reported Musculoskeletal: no symptoms reported Skin: no symptoms reported Psychiatric/Neurological: Anxiety; Denies Weakness All Other Systems Reviewed Negative Unless Noted: Yes Past Acarfdv-Jdsbop-Fdfzvs Hx Past Med/Social Hx: Reviewed Nursing Past Med/Soc Hx Patient Social History Alcohol Use: Denies Use Alcohol Beverage of Choice: Beer Recreational Drug Use: No Drug of Choice: Meth history/Opiod history Smoking Status: Never a Smoker Former Smoker, Quit: Jul 10, 2016 2nd Hand Smoke Exposure: No Recent Hopitalizations: Yes (APR-ASTHMA/FLU) Immunizations Up To Date Date of Influenza Vaccine: Jan 02, 2019 Seasonal Allergies Seasonal Allergies: No Past Medical History Surgeries: Yes Section Respiratory: Yes Asthma Cardiac: No Neurological: Yes Reproductive Disorders: Yes Female Reproductive Disorders: Denies Sexually Transmitted Disease: No HIV/AIDS: No Genitourinary: No Gastrointestinal: Yes (DURING ) Gastroesophageal Reflux, Chronic Constipation Musculoskeletal: No Endocrine: No HEENT: No (GLASSES) Loss of Vision: Denies Hearing Impairment: Denies Cancer: No Psychosocial: Yes Anxiety, Depression Integumentary: No Blood Disorders: No (ANEMIA) Adverse Reaction/Blood Tranf: No (N/A) Family Medical History Reviewed Nursing Family Hx Diabetes mellitus Grandparents (Maternal Grandmother) Drug abuse 19 MOTHER G8 SISTER (Recovering Heroin Addict THC) FH: ovarian cancer 19 MOTHER Grandparents (Maternal Grandmother) Fibrocystic disease of breast 19 MOTHER Grandparents (Paternal Grandmother) Psychosocial problem 19 MOTHER (Bipolar) Cancer, Diabetes Physical Exam Vital Signs - First Documented 08/21/19 00:07 Temp 36.8 Pulse 104 Resp 36 B/P (MAP) 123/63 (83) Pulse Ox 96 O2 Delivery Venturi Mask O2 Flow Rate 8.00 Capillary Refill : Height: 5'7.00" Weight: 170lbs. oz. 77.406959sh; 29.58 BMI Method:Stated General Appearance: WD/WN, moderate distress HEENT: PERRL/EOMI, pharynx normal Neck: full range of motion, supple Respiratory: respiratory distress, decreased breath sounds, accessory muscle use, wheezing, expiration Cardiovascular: no murmur, tachycardia Gastrointestinal: non tender, soft Extremities: non-tender, normal inspection Neurologic/Psychiatric: alert, normal mood/affect Skin: normal color, warm/dry Progress/Results/Core Measures Suspected Sepsis SIRS Temperature: Pulse: Respiratory Rate: Laboratory Tests 08/21/19 00:15: White Blood Count 9.8 Blood Pressure / Mean: Laboratory Tests 08/21/19 00:15: Creatinine 0.82, Platelet Count 445H, Total Bilirubin 0.3 Results/Orders Lab Results Laboratory Tests Test 08/21/19 00:14 08/21/19 00:15 Range/Units Blood Gas Puncture Site RIGHT RADIAL Blood Gas Patient Temperature 36.8 Arterial Blood pH 7.39 7.37-7.43 Arterial Blood Partial Pressure CO2 38 35-45 MMHG Arterial Blood Partial Pressure O2 65 L 79-93 MMHG Arterial Blood HCO3 22 L 23-27 MMOL/L Arterial Blood Total CO2 23.2 21.0-31.0 MMOL/L Arterial Blood Oxygen Saturation 83 L 94-100 % Arterial Blood Base Excess -2.2 -2.5-2.5 MMOL/L Beau Test YES-POS Blood Gas Ventilator Setting NO Blood Gas Inspired Oxygen 4L White Blood Count 9.8 4.3-11.0 10^3/uL Red Blood Count 4.89 4.35-5.85 10^6/uL Hemoglobin 12.0 11.5-16.0 G/DL Hematocrit 37 35-52 % Mean Corpuscular Volume 76 L 80-99 FL Mean Corpuscular Hemoglobin 25 25-34 PG Mean Corpuscular Hemoglobin Concent 32 32-36 G/DL Red Cell Distribution Width 22.5 H 10.0-14.5 % Platelet Count 445 H 130-400 10^3/uL Mean Platelet Volume 9.5 7.4-10.4 FL Neutrophils (%) (Auto) 38 L 42-75 % Lymphocytes (%) (Auto) 36 12-44 % Monocytes (%) (Auto) 10 0-12 % Eosinophils (%) (Auto) 15 H 0-10 % Basophils (%) (Auto) 1 0-10 % Neutrophils # (Auto) 3.7 1.8-7.8 X 10^3 Lymphocytes # (Auto) 3.6 1.0-4.0 X 10^3 Monocytes # (Auto) 1.0 0.0-1.0 X 10^3 Eosinophils # (Auto) 1.5 H 0.0-0.3 10^3/uL Basophils # (Auto) 0.1 0.0-0.1 10^3/uL Sodium Level 138 135-145 MMOL/L Potassium Level 3.2 L 3.6-5.0 MMOL/L Chloride Level 103 98-107 MMOL/L Carbon Dioxide Level 20 L 21-32 MMOL/L Anion Gap 15 H 5-14 MMOL/L Blood Urea Nitrogen 12 7-18 MG/DL Creatinine 0.82 0.60-1.30 MG/DL Estimat Glomerular Filtration Rate > 60 BUN/Creatinine Ratio 15 Glucose Level 116 H 70-105 MG/DL Calcium Level 9.0 8.5-10.1 MG/DL Corrected Calcium 8.6 8.5-10.1 MG/DL Magnesium Level 2.4 1.6-2.4 MG/DL Total Bilirubin 0.3 0.1-1.0 MG/DL Aspartate Amino Transf (AST/SGOT) 22 5-34 U/L Alanine Aminotransferase (ALT/SGPT) 19 0-55 U/L Alkaline Phosphatase 128 40-136 U/L C-Reactive Protein High Sensitivity 1.47 H 0.00-0.50 MG/DL Total Protein 7.8 6.4-8.2 GM/DL Albumin 4.5 3.2-4.5 GM/DL My Orders Orders - MARCE HERRERA MD Magnesium 1 Gm/100 Ml Ivpb (Magnesium Bryant (08/21/19 00:15) Methylprednisolone Sod Succ (Solu-Medrol (08/21/19 00:15) Arterial Blood Gas (08/21/19 00:14) Cbc With Automated Diff (08/21/19 00:14) Comprehensive Metabolic Panel (08/21/19 00:14) Hs C Reactive Protein (08/21/19 00:14) Magnesium (08/21/19 00:14) Albuterol Pre-Mix Nebs (Rt) (Proventil (08/21/19 00:14) Ipratropium 0.02% Neb Solution (Atrovent (08/21/19 00:15) Svn Small Volume Nebulizer (08/21/19 00:14) Svn Small Volume Nebulizer (08/21/19 00:14) Methylprednisolone Sod Succ (Solu-Medrol (08/21/19 00:06) Magnesium 1 Gm/100 Ml Ivpb (Magnesium Bryant (08/21/19 00:06) Albuterol Pre-Mix Nebs (Rt) (Proventil (08/21/19 00:10) Ipratropium 0.02% Neb Solution (Atrovent (08/21/19 00:10) Methylprednisolone Sod Succ (Solu-Medrol (08/21/19 00:30) Magnesium 1 Gm/100 Ml Ivpb (Magnesium Bryant (08/21/19 01:00) Medications Given in ED Current Medications Medications Dose Ordered Sig/Kay Route Start Time Stop Time Status Last Admin Dose Admin Ipratropium [place] 0.5 mg ONCE ONCE IH 08/21/19 00:15 08/21/19 00:17 DC 08/21/19 00:28 0.5 MG Magnesium Sulfate/ Dextrose 100 ml @ 100 mls/hr ONCE ONCE IV 08/21/19 00:15 08/21/19 01:14 DC 08/21/19 00:23 100 MLS/HR Magnesium Sulfate/ Dextrose 100 ml @ 100 mls/hr ONCE ONCE IV 08/21/19 01:00 08/21/19 01:59 DC 08/21/19 00:49 100 MLS/HR Methylprednisolone Sodium Succinate 125 mg ONCE ONCE IVP 08/21/19 00:30 08/21/19 00:31 DC 08/21/19 00:30 125 MG Vital Signs/I&O 08/21/19 08/21/19 00:07 00:28 Temp 36.8 Pulse 104 Resp 36 B/P (MAP) 123/63 (83) Pulse Ox 96 99 O2 Delivery Venturi Mask Nasal Cannula O2 Flow Rate 8.00 4.00 Capillary Refill : Progress Note : Progress Note Seen and evaluated. Patient is in extremis with O2 sat in the upper 80s on 2 L and low 90s on 4 L via nasal cannula. Orders for continuous one-hour treatment as well as magnesium 1 g IV and Solu-Medrol 125 mg IV. Patient apparently took oral prednisone earlier onset. We will check labs and ABG. Monitor patient. 0131: Patient received a second gram of magnesium IV. Patient was coughing and still in extremis. Ultimately BiPAP placed at 12/5 with an initial FiO2 80 and dropped to 40 to keep sats greater than 94%. Patient states that actually this helped out quite a bit. Patient is status asthmaticus. Will require admission to the ICU. I did discuss the case with Dr. Carrera and she accepts patient for admission, inpatient status. I did discuss the case with the virtual ICU team physician. Currently no COVID-19 concerns. Admit, inpatient status. Patient agrees to plan. Departure Communication (Admissions) Time/Spoke to Admitting Phy: 01:31 Impression Primary Impression: Status asthmaticus Qualified Codes: J45.52 - Severe persistent asthma with status asthmaticus Disposition: ADMITTED INPATIENT Condition: Stable Admissions Decision to Admit Reason: Admit from ER (General) Decision to Admit/Date: August 21, 2019 Time/Decision to Admit Time: 01:31 Departure-Patient Inst. Referrals: KENNY CABRERA MD (PCP/Family) Primary Care Physician MARCE HERRERA MD August 21, 2019 00:28
[2019-08-21] MEDS ORDERED: methylPREDNISolone 125 MG (Solu-MEDROL) VIAL IVP ONE (00:30)
[2019-08-21 00:32] LABS: ALBUMIN 4.5 GM/DL (3.2-4.5)
[2019-08-21 00:33] LABS: CHLORIDE 103 MMOL/L (98-107); POTASSIUM 3.2 MMOL/L (3.6-5.0); SODIUM 138 MMOL/L (135-145)
[2019-08-21 00:35] LABS: GLUCOSE 116 MG/DL (70-105); TOTAL PROTEIN 7.8 GM/DL (6.4-8.2)
[2019-08-21 00:36] LABS: CARBON DIOXIDE 20 MMOL/L (21-32)
[2019-08-21 00:37] LABS: BILIRUBIN,TOTAL 0.3 MG/DL (0.1-1.0)
[2019-08-21 00:38] LABS: ALKALINE PHOSPHATASE 128 U/L (40-136)
[2019-08-21 00:39] LABS: CREATININE SERUM 0.82 MG/DL (0.60-1.30); GFR ESTIMATED > 60
[2019-08-21 00:40] LABS: BUN/CREATININE RATIO 15
[2019-08-21 00:42] LABS: ALANINE AMINOTRANSFERASE 19 U/L (0-55); MAGNESIUM 2.4 MG/DL (1.6-2.4)
--- NOTE | 2019-08-21 00:56 | NUR ---
PT REPORTS LITTLE RELIEF IN SYMPTOMS, DR HERRERA ORDERS BIPAP TX FOR PT, RT CONTACTED
--- OUTSIDE RECORDS SUMMARY | 2019-08-21 02:06 | XMS REPORT | Continuity of Care Document ---
Author Organization Unknown Address Unknown Phone Unavailable Allergies Active Description Code Type Severity Reaction Onset Reported/Identified Relationship to Patient Clinical Status Yes No Known Drug Allergies [id number] Drug Allergy Unknown N/A 07/11/2019 Medications There [...] MD, Ot J10. 1 FLU DUE TO [facility] IDENT INFLUENZA VIRUS W O 05/03/2019 [...] W/O SIGNIFICANT PROTEINU 06/29/2019 TRISTONNEBOOM JOSEPHAH Christen LINER INSERTER Ot Z3A.36 36 WEEKS GESTATION OF 06/29/2019 [...] Code Description Performed By Per geri On [id number] EX TRACTION OF PRODUCTS OF CONCEPTION, 07/17/2019 [...] NRG STATEMENT OF ADEQUACY: NRG INTERPRETATION/RESULT: NRG SWEATBAND MAKER: NRG INFECTION: NRG COMMENT NRG Arterial blood [...] INFLUENZA A AND B ANTIGENS BY IA [facility] Comprehensive metabolic panel - 04/13/19 13:15 Serum [...] pa ashu - 07/17/19 11:13 WRISTBAND NUMBER [id number] NRG ABO+Rh group AP NRG Blood group [...] blood basophil count (count/volume) 0.1 10*3/uL 0.0-0.1 Arterial blood gas measurement - 0 00:14 Blood pCO2 38 mm[Hg] 35-45 Blood pO2 65 mm[Hg] 79-93 Arterial blood bicarbonate measurement (moles/volume) 22 mmol/L 23-27 Arterial blood base excess by calculation -2.2 mmo l/L -2.5-2.5 Arterial blood oxygen saturation measurement 83 % 94-100 * Inhaled oxygen flow rate 4L NRG Arterial blood pH measurement with patient temperature correction 7.39 7.37-7.43 Arterial blood carbon dioxide, total measurement (mole s/volume) 23.2 mmol/L 21.0-31.0 Body site RIGHT RADIAL NRG Assessment of wrist artery patency prior to arterial p uncture YES-POS NRG Setting of ventilation mode NO NR G Measurement of body temperature 36.8 NRG Complete blood count (CBC) with automate d white blood cell (WBC) differential - 08/21/19 00:15 Blood leukocytes automated count (number/volume) 9.8 10*3/uL 4.3-11.0 Blood erythrocytes automated count (number/volume) 4.89 10*6/uL 4.35-5.85 Venous blood hemoglobin measurement (mass/volume) 12.0 g/dL 11.5-16.0 Blood hematocrit (volume fraction) 37 % 35-52 Automated erythrocyte mean corpuscular volume 76 [ foz_us] 80-99 Automated erythrocyte mean corpuscular h emoglobin (mass per erythrocyte) 25 pg 25-34 Automated erythrocyte mean corpuscular h emoglobin concentration measurement (mass/volume) 32 g/dL 32-36 Automated erythrocyte distribution width ratio 22. 5 % 10.0- 14.5 Automated blood platelet count (count/volume) 445 10*3/uL 130-400 Automated blood platelet mean volume measurement 9.5 [foz_us] 7.4-10.4 Automated blood neutrophils/100 leukocytes 38 % 42-75 Automated blood lymphocytes/100 leukocytes 36 % 12-44 Blood monocytes/100 leukocytes 10 % 0-12 Automated blood eosinophils/100 leukocytes 15 % 0-10 Automated blood basophils/100 leukocytes 1 % 0-10 Blood neutrophils automated count (number/volume) 3.7 10*3 1.8-7.8 Blood lymphocytes automated count (number/volume) 3.6 10*3 1.0-4.0 Blood monocytes automated count (number/volume) 1. 0 10*3 0.0-1.0 Automated eosinophil count 1.5 10*3/uL 0 .0-0.3 Automated blood basophil count (count/volume) 0.1 10*3/uL 0.0-0.1 Comprehensive metabolic panel - 08/21/19 00:15 Serum or plasma sodium measurement (moles/volume) 138 mmol/L 135-145 Serum or plasma potassium measurement (moles/volume) 3.2 mmol/L 3.6-5.0 Serum or plasma chloride measurement (moles/volume) 103 mmol/L 98-107 Carbon dioxide 20 mmol/L 21-32 Serum or plasma anion gap determination (moles/volume) 15 mmol/L 5-14 Serum or plasma glucose measurement (mass/volume) 116 mg/dL 70-105 Serum or plasma calcium measurement (mass/volume) 9.0 mg/dL 8.5-10.1 Serum or plasma total bilirubin measurement (mass/volu me) 0.3 mg/dL 0.1-1.0 Serum or plasma protein measurement (mass/volume) 7.8 g/dL 6.4-8.2 Serum or plasma albumin measurement (mass/volume) 4.5 g/dL 3.2-4.5 CALCIUM CORRECTED 8.6 mg/dL 8.5-10.1 Encounters ACCT No. Visit Date/Time Discharge Status Pt. Type Provider Facility Loc./Unit Complaint [id number] 12/25/2015 16:55:02 12/25/2015 23:59: 59 [facility] Outpatient Jose Manuel Pace [id number] 12/01/2015 16:37:10 12/01/2015 23:59: 59 CLS Outpatient Jose Manuel aPce [id number] 10/18/2015 14:41:33 10/18/2015 23:59: 59 CLS Outpatient Mervat Dumont [id number] 05/29/2015 20:52:56 05/29/2015 23:59: 59 CLS Outpatient Carmen Jeff [id number] 05/26/2015 17:39:30 05/26/2015 23:59: 59 CLS Outpatient Carmen Jeff [id number] 05/14/2015 14:45:27 05/14/2015 23:59: 59 CLS Outpatient Carmen Jeff [id number] 04/05/2015 20:41:16 04/05/2015 23:59: 59 CLS Outpatient Mervat Dumont [id number] 07/17/2019 09:50:00 12:50:00 DIS Inpatient ABI CANTOR DO [facility] WS PREVIOUS [id number] 07/11/2019 10:15:00 10:53:00 DIS Outpatient ABI CANTOR DO [facility] PREOP PREVIOUS [id number] 06/26/2019 12:52:00 23:59:59 CLS Outpatient ABHISHEK GARCIA LINER INSERTER [facility] LAB [id number] 05/02/2019 14:40:00 10:07:00 DIS Outpatient MAIN BARILLAS, DUANE Hameed [facility] 4TH INFLUENZA A;7 MONTH GESTATION;SEPSIS;ASTHMA EXACER [id number] 04/13/2019 14:15:00 020 13:45:00 DIS Inpatient RO SELLERS MD [facility] 4TH ASTHMA W EXACERBATION, HX OF PREG,HYPOXIC [id number] 04/09/2019 19:41:00 020 20:18:00 DIS Outpatient KRYS PRIDE LINER INSERTER [facility] ER DENTAL PAIN/6 MO PREG [id number] 10/16/2018 14:00:00 019 15:10:00 DIS Emergency KRYS PRIDE LINER INSERTER [facility] ER EYE SWELLING [id number] 08/21/2019 01:33:[address] Inpatient DAMARI AMEZCUA DO [facility] [place] ICU STATUS ASTHMA [id number] 07/25/2019 14:00:00 07/25/2019 23:59:5 9 CLS Outpatient KENNY CABRERA [facility] [id number] 06/28/2019 12:20:00 Document Registration [id number] 06/26/2019 11:40:00 Document Registration [id number] 06/12/2019 11:40:00 Document Registration [id number] 04/17/2019 15:40:00 Document Registration [id number] 12/20/2018 13:20:00 Document Registration [id number] 09/12/2017 11:20:00 Document Registration [id number] 08/15/2015 10:55:09 08/14 10:55:09 DIS Outpatient [id number] 08/15/2015 10:54:48 08/14 10:54:48 DIS Outpatient [id number] 07/05/2013 16:54:00 07/05 16:54:00 DIS Outpatient [id number] 06/22/2013 09:33:18 06/22 09:33:18 Outpatient [id number] 06/22/2013 09:06:52 06/22 09:06:52 Outpatient
[2019-08-21] MEDS ORDERED: LACTATED RINGERS 1,000 ML IV ONE (02:46)
[2019-08-21] MEDS: LACTATED RINGERS 1,000 ML IV SCH ×3 (03:01→19:05)
[2019-08-21] MEDS ORDERED: RT-ALBUTEROL/IPRATROPIUM 3 ML (DUONEB) VIAL INH PRN (03:45)
[2019-08-21 03:46] LABS: BASOPHILS % (AUTO) 0 % (0-10); EOSINOPHILS # (AUTO) 0.1 10^3/uL (0.0-0.3); EOSINOPHILS % (AUTO) 1 % (0-10); HEMATOCRIT 36 % (35-52); HEMOGLOBIN 11.3 G/DL (11.5-16.0); LYMPHOCYTES # (AUTO) 0.8 X 10^3 (1.0-4.0); LYMPHOCYTES % (AUTO) 6 % (12-44); MEAN CORPUSCULAR HEMOGLOBIN 24 PG (25-34); MEAN CORPUSCULAR HGB CONC 32 G/DL (32-36); MEAN CORPUSCULAR VOLUME 77 FL (80-99); MEAN PLATELET VOLUME 9.5 FL (7.4-10.4); MONOCYTES # (AUTO) 0.2 X 10^3 (0.0-1.0); MONOCYTES % (AUTO) 1 % (0-12); NEUTROPHILS # (AUTO) 13.1 X 10^3 (1.8-7.8); NEUTROPHILS % (AUTO) 92 % (42-75); PLATELET COUNT 392 10^3/uL (130-400); RED CELL DISTRIBUTION WIDTH 22.3 % (10.0-14.5); WHITE BLOOD COUNT 14.3 10^3/uL (4.3-11.0)
[2019-08-21 04:10] LABS: ALANINE AMINOTRANSFERASE 17 U/L (0-55); ALBUMIN 4.4 GM/DL (3.2-4.5); ALKALINE PHOSPHATASE 129 U/L (40-136); BILIRUBIN,TOTAL 0.2 MG/DL (0.1-1.0); BUN/CREATININE RATIO 13; CALCIUM 8.8 MG/DL (8.5-10.1); CARBON DIOXIDE 20 MMOL/L (21-32); CHLORIDE 103 MMOL/L (98-107); CREATININE SERUM 0.85 MG/DL (0.60-1.30); GFR ESTIMATED > 60; GLUCOSE 190 MG/DL (70-105); POTASSIUM 2.8 MMOL/L (3.6-5.0); SODIUM 138 MMOL/L (135-145); TOTAL PROTEIN 7.7 GM/DL (6.4-8.2)
[2019-08-21 04:22] LABS: BAND NEUTROPHILS 3 %; NEUTROPHILS % (MANUAL) 85 %
[2019-08-21 04:23] LABS: ANISOCYTOSIS SLIGHT; EOSINOPHILS % (MANUAL) 1 %; LYMPHOCYTES % (MANUAL) 8 %; MONOCYTES % (MANUAL) 3 %
[2019-08-21] MEDS: POTASSIUM CL 10MEQ/50ML IVPB 50 ML IV SCH ×4 (04:37→07:33)
[2019-08-21] MEDS ORDERED: MAGNESIUM 1 GM/100 ML IVPB 100 ML IV SCH (06:00)
[2019-08-21] MEDS ORDERED: POTASSIUM CL 10MEQ/50ML IVPB 50 ML IV SCH (06:00)
[2019-08-21] MEDS ORDERED: methylPREDNISolone 125 MG (Solu-MEDROL) VIAL IVP SCH (06:00)
[2019-08-21] MEDS ORDERED: KCL 20 MEQ TAB (K-DUR) PO SCH (06:00)
--- NOTE | 2019-08-21 06:16 | Pulmonary Consultation ---
History of Present Illness History of Present Illness Date Seen by Provider: August 21, 2019 Time Seen by Provider: 06:14 Date of Admission Allergies and Home Medications Allergies Coded Allergies: No Known Drug Allergies (Unverified , 07/11/19) Home Medications Albuterol Sulfate 1 Puff Puff, 2 PUFF IH Q4H PRN for WHEEZING 1 PUFF = 90 MCG Prescribed by: RO SELLERS on 04/15/19 1131 Albuterol Sulfate 2.5 Mg/3 Ml Vial.neb, 2.5 MG NEB Q4H PRN for SHORTNESS OF BREATH, (Reported) Budesonide 180 Mcg Aer.pow.ba, 1 PUFF IH BID, (Reported) Docusate Sodium 100 Mg Capsule, 100 MG PO BID PRN for CONSTIPATION-1ST LINE Prescribed by: ABI CANTOR on 07/18/19925 Ferrous Sulfate 325 Mg Tablet, 325 MG PO BID WITH MEALS Prescribed by: ABI CANTOR on 07/18/19925 Hydrocodone/Acetaminophen 1 Each Tablet, 1-2 TAB PO Q6HR PRN for PAIN-MODERATE (5-7) Prescribed by: ABI CANTOR on 07/18/19925 Ibuprofen 600 Mg Tablet, 600 MG PO Q6H Prescribed by: ABI CANTOR on 07/18/19925 Vit W-Ca,Fe,FA(<1 mg) 1 Each Tablet, 1 EACH PO DAILY, (Reported) Past Jnpcbtl-Skxmqb-Uydurt Hx Past Med/Social Hx: Reviewed Nursing Past Med/Soc Hx Patient Social History Alcohol Use: Denies Use Number of Drinks Today: AA Alcohol Beverage of Choice: Beer Recreational Drug Use: No Drug of Choice: Meth history/Opiod history Smoking Status: Never a Smoker Former Smoker, Quit: Jul 10, 2016 2nd Hand Smoke Exposure: No Recent Foreign Travel: No Contact w/Someone Who Travel: No Recent Infectious Disease Expo: No Recent Hopitalizations: Yes (APR-ASTHMA/FLU) Physical Abuse: No Sexual Abuse: No Mistreated: No Fear: No Immunizations Up To Date Tetanus Booster (TDap): Unknown PED Vaccines UTD: Yes Date of Pneumonia Vaccine: Jul 18, 2019 Date of Influenza Vaccine: Jan 02, 2019 Seasonal Allergies Seasonal Allergies: No Past Medical History Surgeries: Yes Section Respiratory: Yes Asthma Cardiac: No Neurological: Yes : No Reproductive Disorders: Yes Female Reproductive Disorders: Denies Sexually Transmitted Disease: No HIV/AIDS: No Genitourinary: No Gastrointestinal: Yes (DURING ) Gastroesophageal Reflux, Chronic Constipation Musculoskeletal: No Endocrine: No HEENT: No (GLASSES) Loss of Vision: Denies Hearing Impairment: Denies Cancer: No Psychosocial: Yes Anxiety, Depression Integumentary: No Blood Disorders: No (ANEMIA) Adverse Reaction/Blood Tranf: No (N/A) Family Medical History Reviewed Nursing Family Hx Diabetes mellitus Grandparents (Maternal Grandmother) Drug abuse 19 MOTHER G8 SISTER (Recovering Heroin Addict THC) FH: ovarian cancer 19 MOTHER Grandparents (Maternal Grandmother) Fibrocystic disease of breast 19 MOTHER Grandparents (Paternal Grandmother) Psychosocial problem 19 MOTHER (Bipolar) Cancer, Diabetes Sepsis Event Evaluation Height, Weight, BMI Height: 5'7.00" Weight: 170lbs. oz. 77.219726jb; 25.95 BMI Method:Stated Exam Exam Vital Signs Date Time Temp Pulse Resp B/P (MAP) Pulse Ox O2 Delivery O2 Flow Rate FiO2 08/21/19 05:41 Nasal Cannula 1.00 08/21/19 05:03 NIV Bilevel 21.00 08/21/19 05:00 69 17 105/65 (78) 99 NIV Bilevel 30.00 08/21/19 04:45 74 14 114/66 (82) 99 NIV Bilevel 30.00 08/21/19 04:41 99 NIV Bilevel 30.00 08/21/19 04:30 NIV Bilevel 30.00 08/21/19 04:15 70 14 106/64 (78) 100 NIV Bilevel 40.00 08/21/19 03:45 73 14 115/73 (87) 99 NIV Bilevel 40.00 08/21/19 03:31 NIV Bilevel 40 08/21/19 03:30 83 33 113/54 (73) 97 NIV Bilevel 40.00 08/21/19 03:19 36.8 104 96 8 08/21/19 03:15 76 20 115/88 (97) 98 NIV Bilevel 40.00 08/21/19 03:03 80 08/21/19 03:00 36.4 75 13 115/60 (78) 97 NIV Bilevel 40.00 08/21/19 02:59 92 25 98 40.00 08/21/19 02:50 36.8 84 18 102/64 (83) 99 NIV Bilevel 4.00 08/21/19 01:00 93 14 100 40.00 08/21/19 00:28 99 Nasal Cannula 4.00 08/21/19 00:07 36.8 104 36 123/63 (83) 96 Venturi Mask 8.00 I & O 08/21/19 07:00 Intake Total 50 ml Balance 50 ml Height & Weight Height: 5'7.00" Weight: 170lbs. oz. 77.444290jz; 25.95 BMI Method:Stated Capillary Refill: Less Than 3 Seconds Gastrointestinal: non tender, soft Results Lab Laboratory Tests 08/21/19 00:15 08/21/19 03:36 Assessment/Plan Assessment/Plan Asthma AE -D/C MAT protocol -Change duoneb from BID to q 4hrs -decrease solumedrol to 40 IV Q 6 Hypokalemia -Replace Hx of drug use ANIKA HIDALGO DO August 21, 2019 06:16
--- NOTE | 2019-08-21 06:17 | NUR ---
pt is off the bipap at this time. Addendum: 08/21/19 at 0618 by DEAN GRACIA RT Amended: Links added.
[2019-08-21 06:40] LABS: PHOSPHORUS 4.6 MG/DL (2.3-4.7)
[2019-08-21 06:42] LABS: MAGNESIUM 2.3 MG/DL (1.6-2.4)
--- NOTE | 2019-08-21 07:07 | History & Physical-Hospitalist ---
History of Present Illness HPI/Chief Complaint CC: Status asthmaticus HPI: This is a 29yoWF of [facility] who presents in status asthmaticus. ER placed her on BiPAP and Pt was placed on aggressive treatment and placed in the ICU for close monitoring. Pt has improved immensely and has been transferred to [facility]. Pt reports she is breathing better and overall doing much better. Overall she has no new complaints. Potassium 2.8 and white count is 14. Source: patient Exam Limitations: no limitations Date Seen 08/21/19 Time Seen by a Provider: 09:45 Attending Physician Kirsten Carrera Holly R MD Referring Physician Date of Admission August 21, 2019 at 01:33 Home Medications & Allergies Home Medications Reviewed patient Home Medication Reconciliation performed by pharmacy medication reconciliations nanotechnology technician and/or nursing. Patients Allergies have been reviewed. Allergies Allergies Coded Allergies No Known Drug Allergies (Unverified07/11/19) Past Ciimqgb-Yeuwwh-Gofbcn Hx Past Med/Social Hx: Reviewed Nursing Past Med/Soc Hx, Reviewed and Corrections made Patient Social History Marrital Status: cohabiting Employed/Student: unemployed Alcohol Use: Denies Use Number of Drinks Today: AA Alcohol Beverage of Choice: Beer Recreational Drug Use: No Drug of Choice: Meth history/Opiod history Smoking Status: Never a Smoker Former Smoker, Quit: Jul 10, 2016 2nd Hand Smoke Exposure: No Recent Foreign Travel: No Contact w/other who traveled: No Recent Hopitalizations: Yes (APR-ASTHMA/FLU) Recent Infectious Disease Expo: No Immunizations Up To Date Tetanus Booster (TDap): Unknown Pediatric: Yes Date of Pneumonia Vaccine: Jul 18, 2019 Date of Influenza Vaccine: Jan 02, 2019 Seasonal Allergies Seasonal Allergies: No Past Medical History Surgeries: Section : No Reproductive: Yes Sexually Transmitted Disease: No HIV/AIDS: No Female Reproductive Disorders: Denies Gastrointestinal: Gastroesophageal Reflux, Chronic Constipation Loss of Vision: Denies Hearing Impairment: Denies Psychosocial: Anxiety, Depression History of Blood Disorders: No (ANEMIA) Adverse Reaction to Blood Gaines: No (N/A) Family History Reviewed Nursing Family Hx Diabetes mellitus Grandparents (Maternal Grandmother) Drug abuse 19 MOTHER G8 SISTER (Recovering Heroin Addict THC) FH: ovarian cancer 19 MOTHER Grandparents (Maternal Grandmother) Fibrocystic disease of breast 19 MOTHER Grandparents (Paternal Grandmother) Psychosocial problem 19 MOTHER (Bipolar) Cancer, Diabetes Review of Systems Constitutional: see HPI, weakness Respiratory: dyspnea on exertion, wheezing Physical Exam Physical Exam Vital Signs Vital Signs - First Documented 08/21/19 08/21/19 00:07 03:19 Temp 36.8 Pulse 104 Resp 36 B/P (MAP) 123/63 (83) Pulse Ox 96 O2 Delivery Venturi Mask O2 Flow Rate 8.00 FiO2 8 Capillary Refill : Less Than 3 Seconds Height, Weight, BMI Height: 5'7.00" Weight: 170lbs. oz. 77.195757dk; 25.95 BMI Method:Stated General Appearance: No Apparent Distress Eyes: Right Eye Normal Inspection, Right Eye PERRL HEENT: PERRL/EOMI, Normal ENT Inspection, Pharynx Normal, Moist Mucous Membranes Neck: Full Range of Motion, Normal Inspection, Non Tender Respiratory: Chest Non Tender, No Accessory Muscle Use, No Respiratory Distress, Decreased Breath Sounds, Wheezing Cardiovascular: Regular Rate, Rhythm, No Edema, No Gallop, No JVD, No Murmur, Normal Peripheral Pulses Gastrointestinal: Normal Bowel Sounds, No Organomegaly, No Pulsatile Mass, Non Tender, Soft Back: Normal Inspection, No CVA Tenderness, No Vertebral Tenderness Extremity: Normal Capillary Refill, Normal Inspection, Normal Range of Motion, Non Tender, No Calf Tenderness, No Pedal Edema Neurologic/Psychiatric: Alert, Oriented x3, No Motor/Sensory Deficits, Normal Mood/Affect Skin: Normal Color, Warm/Dry Lymphatic: No Adenopathy Results Results/Procedures Labs Laboratory Tests 08/21/19 00:15 08/21/19 03:36 Patient resulted labs reviewed. Assessment/Plan Admission Diagnosis Assessment: Status asthmaticus Recent delivery of baby Narcotic dependency in the past Plan: Monitor wheezing Tx to 4th Admission Status: Inpatient Order (span 2 midnights) Reason for Inpatient Admission: status asthmaticus Diagnosis/Problems Diagnosis/Problems (1) Status asthmaticus Status: Acute Qualifiers: Asthma severity: severe Asthma persistence: persistent Qualified Codes: J45.52 - Severe persistent asthma with status asthmaticus (2) Previous section Clinical Quality Measures DVT/VTE Risk/Contraindication: Risk Factor Score Per Nursin RFS Level Per Nursing on Admit: 1=Low/No VTE PPX KIRSTEN CARRERA DO August 21, 2019 07:07
[2019-08-21] MEDS ORDERED: RT-ALBUTEROL/IPRATROPIUM 3 ML (DUONEB) VIAL INH SCH (08:00)
--- NOTE | 2019-08-21 08:05 | NUR ---
This nurse called SBAR report to Olivia AMARO on 4th floor. Patient taken down to room 404 via wheel chair, arriving in room at 0810. Olivia AMARO entering patients room upon arrival.
--- NOTE | 2019-08-21 08:10 | NUR ---
PATIENT TO ROOM 404 VIA WHEELCHAIR. NO SIGNS/SYMPTOMS OF DISTRESS NOTED. PATIENT DENIES ANY NEEDS AT THIS TIME. WILL CONTINUE TO MONITOR.
[2019-08-21] MEDS ORDERED: POTASSIUM CL 10MEQ/50ML IVPB 50 ML IV ONE (08:30)
[2019-08-21] MEDS ORDERED: KCL 20 MEQ TAB (K-DUR) PO NR (09:00)
[2019-08-21] MEDS: RT-ALBUTEROL/IPRATROPIUM 3 ML (DUONEB) VIAL INH SCH ×4 (09:15→21:01)
[2019-08-21] MEDS: ADVAIR HFA 115/21 MCG INHALER 8 GM IH SCH ×2 (09:16→21:01)
--- NOTE | 2019-08-21 10:06 | Occ Therapy Progress Note ---
Therapy Progress Note OT orders received and chart reviewed. OT visited with pt at 09 on this date, educating pt on the benefits and purpose of OT, she verbalized understanding. Pt reports she does not feel like she needs OT at this time and feels like she is at her PLOF with ADLs. No skilled OT services are indicated at this time due to pt's report of being at PLOF and declining services. D/C from OT. 1, visit 929 WISAM WONG OT August 21, 2019 10:06
[2019-08-21] MEDS ORDERED: FLUO20CA46 PO (10:40)
[2019-08-21] MEDS ORDERED: FOLI1TAB57 PO (10:42)
[2019-08-21] MEDS ORDERED: IBUP-2473 PO (10:42)
[2019-08-21] MEDS ORDERED: LORA10TA76 PO (10:42)
--- NOTE | 2019-08-21 11:00 | NUR ---
SPOKE WITH THE PT AND WENT THRU THE EXT MED HISTORY TO COMPLETE THE MED REC PT WAS ABLE TO TELL ME WHAT AND WHEN SHE TAKES HER MEDS AND THE INFORMATION MATCHES THE EXT MED HISTORY ALBUTEROL HFA & NEBULIZER SOLUTION AND PULMICORT ARE ALL PRN OTC MEDS: CLARITIN [employer] IBUPROFEN
[2019-08-21] MEDS: methylPREDNISolone 40 MG/ML (Solu-MEDROL) VIAL IV SCH ×2 (11:39→17:17)
[2019-08-21] MEDS ORDERED: ONDANSETRON 4 MG/2 ML (SDV) Z0FRAN IV PRN (16:15)
[2019-08-21] MEDS ORDERED: IBUPROFEN TABLET 200 MG TAB PO PRN (16:15)
[2019-08-21] MEDS ORDERED: ACETAMINOPHEN 500 MG TAB (TYLENOL) PO PRN (16:15)
[2019-08-21] MEDS ORDERED: DOCUSATE SODIUM 100 MG (COLACE) CAP PO PRN (16:15)
--- NOTE | 2019-08-21 16:24 | NUR ---
PATIENT REQUEST TYLENOL. DR AMEZCUA NOTIFIED. NEW ORDER OBTAINED. PATIENT IS NOW SLEEPING. WILL GIVE TYLENOL WHEN SHE WAKES UP IF SHE IS STILL REQUESTING IT.
[2019-08-21] MEDS ORDERED: ACETAMINOPHEN 325 MG TABLET PO PRN (16:30)
[2019-08-21] MEDS: polyethylene glycoL POWDER 17 GM (MIRALAX) PACK PO SCH (21:22)
[2019-08-22] MEDS: methylPREDNISolone 40 MG/ML (Solu-MEDROL) VIAL IV SCH ×2 (00:18→05:35)
[2019-08-22] MEDS: RT-ALBUTEROL/IPRATROPIUM 3 ML (DUONEB) VIAL INH SCH ×3 (01:37→10:22)
[2019-08-22] MEDS: LACTATED RINGERS 1,000 ML IV SCH (02:51)
[2019-08-22 04:35] VITALS: BP 122/70
[2019-08-22 04:49] LABS: BASOPHILS % (AUTO) 0 % (0-10); EOSINOPHILS % (AUTO) 0 % (0-10); HEMATOCRIT 34 % (35-52); HEMOGLOBIN 10.6 G/DL (11.5-16.0); LYMPHOCYTES # (AUTO) 0.8 X 10^3 (1.0-4.0); LYMPHOCYTES % (AUTO) 3 % (12-44); MEAN CORPUSCULAR HEMOGLOBIN 25 PG (25-34); MEAN CORPUSCULAR HGB CONC 31 G/DL (32-36); MEAN CORPUSCULAR VOLUME 79 FL (80-99); MEAN PLATELET VOLUME 10.2 FL (7.4-10.4); MONOCYTES # (AUTO) 0.6 X 10^3 (0.0-1.0); MONOCYTES % (AUTO) 2 % (0-12); NEUTROPHILS # (AUTO) 23.9 X 10^3 (1.8-7.8); NEUTROPHILS % (AUTO) 94 % (42-75); PLATELET COUNT 368 10^3/uL (130-400); RED CELL DISTRIBUTION WIDTH 23.3 % (10.0-14.5); WHITE BLOOD COUNT 25.3 10^3/uL (4.3-11.0)
[2019-08-22 05:12] LABS: CHLORIDE 108 MMOL/L (98-107); POTASSIUM 3.9 MMOL/L (3.6-5.0); SODIUM 138 MMOL/L (135-145)
[2019-08-22 05:13] LABS: CALCIUM 8.9 MG/DL (8.5-10.1); GLUCOSE 162 MG/DL (70-105)
[2019-08-22 05:15] LABS: CARBON DIOXIDE 18 MMOL/L (21-32)
[2019-08-22 05:17] LABS: CREATININE SERUM 0.69 MG/DL (0.60-1.30); GFR ESTIMATED > 60
[2019-08-22 05:18] LABS: BUN/CREATININE RATIO 10
--- NOTE | 2019-08-22 07:31 | Pulmonary Progress Note ---
Subjective Date Seen by a Provider: August 22, 2019 Time Seen by a Provider: 07:27 Subjective/Events-last exam Pt feels much improved. Sepsis Event Evaluation Height, Weight, BMI Height: 5'7.00" Weight: 170lbs. oz. 77.049909yr; 25.95 BMI Method:Stated Exam Exam Vital Signs Date Time Temp Pulse Resp B/P (MAP) Pulse Ox O2 Delivery O2 Flow Rate FiO2 08/22/19 04:35 36.4 60 18 122/70 (87) 95 Room Air 08/21/19 23:35 37.0 66 16 104/57 (73) 96 Room Air 08/21/19 21:20 96 Room Air 08/21/19 20:28 36.9 87 16 119/74 (89) 96 Room Air 08/21/19 15:36 36.8 82 17 119/69 (86) 100 Room Air 08/21/19 15:21 98 Room Air 08/21/19 11:42 36.6 79 20 102/52 (69) 97 Room Air 08/21/19 09:18 97 Room Air 08/21/19 09:16 97 Room Air 08/21/19 08:00 97 Room Air 08/21/19 08:00 86 17 127/80 (96) 99 Nasal Cannula 1.00 I & O 08/22/19 07:00 Intake Total 3920 ml Balance 3920 ml Height & Weight Height: 5'7.00" Weight: 170lbs. oz. 77.560974wa; 25.95 BMI Method:Stated General Appearance: No Apparent Distress HEENT: PERRL/EOMI, Normal ENT Inspection, Pharynx Normal, Moist Mucous Membranes Neck: Full Range of Motion, Normal Inspection, Non Tender Respiratory: Chest Non Tender, No Accessory Muscle Use, No Respiratory Distress, Decreased Breath Sounds, Wheezing Cardiovascular: Regular Rate, Rhythm, No Edema, No Gallop, No JVD, No Murmur, Normal Peripheral Pulses Capillary Refill: Less Than 3 Seconds Gastrointestinal: non tender, soft Extremity: Normal Capillary Refill, Normal Inspection, Normal Range of Motion, Non Tender, No Calf Tenderness, No Pedal Edema Neurologic/Psychiatric: Alert, Oriented x3, No Motor/Sensory Deficits, Normal Mood/Affect Skin: Normal Color, Warm/Dry Lymphatic: No Adenopathy Results Lab Laboratory Tests 08/21/19 00:15 08/21/19 03:36 08/22/19 04:20 Assessment/Plan Assessment/Plan Asthma AE -D/C MAT protocol -Change duoneb from BID to q 4hrs - solumedrol to 40 IV Q 6 -Change to prednisone taper Hx of drug use Ok to discharge from pulmonary standpoint with prednisone taper, rescue INH and advair. ANIKA HIDALGO DO August 22, 2019 07:31
[2019-08-22 07:47] VITALS: BP 126/78
[2019-08-22] MEDS ORDERED: predniSONE 10 MG TAB PO SCH (09:00)
[2019-08-22] MEDS: ADVAIR HFA 115/21 MCG INHALER 8 GM IH SCH ×2 (10:21→10:25)
[2019-08-22] MEDS: polyethylene glycoL POWDER 17 GM (MIRALAX) PACK PO SCH (10:25)
[2019-08-22 11:13] VITALS: BP 116/69
[2019-08-22] MEDS ORDERED: PRED10TA22 PO (11:18)
--- NOTE | 2019-08-22 11:19 | Discharge Summary ---
Discharge Summary Hospital Course Was the Problem List Reviewed?: Yes Problems/Dx: (1) Status asthmaticus Status: Acute Qualifiers: Qualified Codes: J45.52 - Severe persistent asthma with status asthmaticus (2) Previous section Hospital Course Date of Admission: August 21, 2019 at 01:33 Admission Diagnosis : Family Physician/Provider: Gela Mcdaniels MD Date of Discharge: 08/22/19 Discharge Diagnosis: status asthmaticus Hospital Course: Hospital Course: Pt had a short hospital course after she was admitted for status asthmaticus. She was placed on BiPAP, IV steroids, and close monitoring in the ICU, transferred to 4th floor, and overall she did very well. She had no complications, vitals remained stable, WC remained elevated at 23 from steroid effect, and she will have close follow up with CBC in two days with close followup with [facility] and Prednisone taper dose was sent to [facility] [employer]. Labs and Pending Lab Test: Laboratory Tests 08/22/19 04:20: White Blood Count 25.3H, Red Blood Count 4.27L, Hemoglobin 10.6L, Hematocrit 34L , Mean Corpuscular Volume 79L, Mean Corpuscular Hemoglobin 25, Mean Corpuscular Hemoglobin Concent 31L, Red Cell Distribution Width 23.3H, Platelet Count 368, Mean Platelet Volume 10.2, Neutrophils (%) (Auto) 94H, Lymphocytes (%) (Auto) 3L , Monocytes (%) (Auto) 2, Eosinophils (%) (Auto) 0, Basophils (%) (Auto) 0, Neutrophils # (Auto) 23.9H, Lymphocytes # (Auto) 0.8L, Monocytes # (Auto) 0.6, Eosinophils # (Auto) 0.0, Basophils # (Auto) 0.0, Sodium Level 138, Potassium Level 3.9, Chloride Level 108H, Carbon Dioxide Level 18L, Anion Gap 12, Blood Urea Nitrogen 7, Creatinine 0.69, Estimat Glomerular Filtration Rate > 60, BUN/Creatinine Ratio 10, Glucose Level 162H, Calcium Level 8.9 Microbiology 08/21/19 MRSA Screen - Final, Complete MRSA not isolated Home Meds Active Prednisone 10 Mg Tab.ds.pk 10 Mg PO DAILY Take 6 tabs(60mg)daily,decrease by 1 tab(10MG)daily. Ferrous Sulfate 325 Mg Tablet 325 Mg PO BID WITH MEALS Proair Hfa (Albuterol Sulfate) 1 Puff Puff 2 Puff IH Q4H PRN 1 PUFF = 90 MCG Reported Ibuprofen 200 Mg Tablet 400-800 Mg PO Q8H Multi For Her Tablet (Mv,Ca,Min/Iron Fum/FA/Vit K) 1 Each Tablet 1 Each PO DAILY Claritin (Loratadine) 10 Mg Tablet 10 Mg PO DAILY Fluoxetine HCl 20 Mg Capsule 20 Mg PO DAILY Pulmicort Flexhaler (Budesonide) 180 Mcg Aer.pow.ba 1 Puff IH BID PRN Albuterol Sulfate 2.5 Mg/3 Ml Vial.neb 2.5 Mg NEB Q4H PRN Assessment/Pt Instructions [facility] Tuesday Discharge Planning: <30 minutes discharge planning Discharge Physical Examination Vital Signs Vital Signs Date Time Temp Pulse Resp B/P (MAP) Pulse Ox O2 Delivery O2 Flow Rate FiO2 08/22/19 11:13 36.2 77 18 116/69 (85) 96 Room Air 08/21/19 08:00 1.00 08/21/19 03:31 40 General Appearance: No Apparent Distress, WD/WN Respiratory: Lungs Clear, Normal Breath Sounds Cardiovascular: Regular Rate, Rhythm Neurologic/Psychiatric: Alert, Oriented x3, No Motor/Sensory Deficits, Normal Mood/Affect Allergies: Coded Allergies: No Known Drug Allergies (Unverified , 07/11/19) Discharge Summary Date of Admission August 21, 2019 at 01:33 Date of Discharge Discharge Date: August 22, 2019 Admission Diagnosis Assessment: Status asthmaticus Recent delivery of baby Narcotic dependency in the past Plan: Monitor wheezing Tx to 4th Discharge Diagnosis (1) Status asthmaticus Status: Acute Qualifiers: Qualified Codes: J45.52 - Severe persistent asthma with status asthmaticus (2) Previous section Clinical Quality Measures DVT/VTE Risk/Contraindication: Risk Factor Score Per Nursin RFS Level Per Nursing on Admit: 1=Low/No VTE PPX DAMARI AMEZCUA DO August 22, 2019 11:19
--- NOTE | 2019-08-22 12:00 | NUR ---
PIV removed, dc instructions including prescription and f/u lab in 2 days. pt verbalized understanding of all teaching, no questions. pt would like to eat her lunch tray while waiting on her cab ride home.
[2019-08-22 13:12] VITALS: BP 116/69
--- NOTE | 2019-08-22 13:21 | NUR ---
LYRIC MENDEZ demonstrates understanding of discharge instructions and accurately returns instructions upon questioning. Copy of Post-Discharge Instructions and Medication Discharge Instructions given to pt. LYRIC MENDEZ is able to manage continuing needs after discharge. Patients belongings returned to pt. Skin dry and intact; no breakdown noted. Patient discharged from 404-1 on at 1312 . LYRIC MENDEZ left floor via , accompanied by staff.
== END 2019-08-22 13:12 | disposition home or self-care (01) | DRG 776 ==
LOC: EDUNIT# 00:05 → ER 00:07 → ICU 01:33 → 4TH 08:10
PROVIDERS: ADMIT Internal Medicine; ATTEND Internal Medicine
DX: O99.53 Diseases of the respiratory system complicating the puerperium (principal); J45.52 Severe persistent asthma with status asthmaticus; K21.9 Gastro-esophageal reflux disease without esophagitis; K59.09 Other constipation; E87.6 Hypokalemia; F41.9 Anxiety disorder, unspecified; F32.9 Major depressive disorder, single episode, unspecified; F11.21 Opioid dependence, in remission
CPT/HCPCS: 36415; 80048; 80053; 82805; 83735; 84100; 85007; 85025; 85027; 86141; 87081; 94640; 94660

== ENCOUNTER 2019-11-11 12:29 | Observation (INO) | payer MEDICAID ==
[2019-11-11] VITALS (10 sets, daily range): BP systolic 106–119; BP diastolic 52–75
[~2019-11-11] VITALS: Ht 170.2 cm; Wt 76.2 kg
[~2019-11-11 12:29] MED LIST changes: +FLUO20CA46 PO; +FOLI1TAB57 PO; +HYDR-3812 PO; -HYDR-83 PO; +IBUP-2473 PO; +LORA10TA76 PO; +PRED10TA22 PO
--- OUTSIDE RECORDS SUMMARY | 2019-11-11 12:35 | XMS REPORT | Continuity of Care Document ---
Author Organization Unknown Address Unknown Phone Unavailable Allergies Active Description Code Type Severity Reaction Onset Reported/Identified Relationship to Patient Clinical Status Yes No Known Drug Allergies [id number] Drug Allergy Unknown N/A 07/11/2019 Medications There [...] MD, Ot J10. 1 FLU DUE TO [facility] IDENT INFLUENZA VIRUS W O 05/03/2019 DUANE QUCAH MD, Ot J45.901 UNSPECIFIED ASTHMA WITH (ACUTE) [...] Z3A. 28 28 WEEKS GESTATION OF 06/29/2019 BOOM GARCIAAH Christen SNOW GROOMER Ot O13.3 GESTATIONAL HTN W/O SIGNIFICANT PROTEINU 06/29/2019 JOSE ABHISHEK Christen SNOW GROOMER Ot Z3A.36 36 WEEKS GESTATION OF 06/29/2019 JOSE ABHISHEK Christen SNOW GROOMER Ot O13.3 GESTATIONAL HTN W/O SIGNIFICANT PROTEINU 06/29/2019 BOOM GARCIAAH Christen SNOW GROOMER Ot Z3A.36 36 WEEKS GESTATION OF 07/11/2019 ABI CANTOR DO Ot Z01.818 ENCOUNTER FOR OTHER PREPROCEDURAL EXAMIN 07/19/2019 ABI CANTOR DO Ot D6 2 ACUTE POSTHEMORRHAGIC ANEMIA 07/19/2019 ABI CANTOR DO Ot J45.909 UNSPECIFIED ASTHMA, UNCOMPLICATED 07/19/2019 ABI CANTOR DO Ot O34.211 MATERN CARE FOR LOW TRANSVERSE SCAR FROM 07/19/2019 ABI CANTOR DO Ot O90.81 ANEMIA OF THE PUERPERIUM 07/19/2019 ABI CANTOR DO Ot O99.52 DISEASES OF THE RESPIRATORY SYSTEM COMPL 07/19/2019 ABI CANTOR DO Ot Z2 3 ENCOUNTER FOR IMMUNIZATION 07/19/2019 ABI CANTOR DO Ot Z37.0 SINGLE LIVE 07/19/2019 ABI CANTOR DO Ot Z3A.39 39 WEEKS GESTATION OF 08/22/2019 GOLDIE VENCES DAMARI Ot F32.9 MAJOR DEPRESSIVE DISORDER, SINGLE EPISOD 08/22/2019 GOLDIE VENCES DAMARI Ot F41.9 ANXIETY DISORDER, UNSPECIFIED 08/22/2019 GOLDIE VENCES DAMARI Ot J45.52 SEVERE PERSISTENT ASTHMA WITH STATUS AST 08/22/2019 GOLDIE VENCES DAMARI Ot K21.9 GASTRO-ESOPHAGEAL REFLUX DISEASE WITHOUT 08/22/2019 GOLDIE VENCES DAMARI Ot K59.09 OTHER CONSTIPATION 08/22/2019 AMEZCUA DO, DAMARI Ot F32.9 MAJOR DEPRESSIVE DISORDER, SINGLE EPISOD 08/22/2019 AMEZCUA DO, DAMARI Ot F41.9 ANXIETY DISORDER, UNSPECIFIED 08/22/2019 AMEZCUA DO, DAMARI Ot J45.52 SEVERE PERSISTENT ASTHMA WITH STATUS AST 08/22/2019 AMEZCUA DO, DAMARI Ot K21.9 GASTRO-ESOPHAGEAL REFLUX DISEASE WITHOUT 08/22/2019 AMEZCUA DO, DAMARI Ot K59.09 OTHER CONSTIPATION 08/22/2019 AMEZCUA DO, DAMARI Ot E87.6 HYPOKALEMIA 08/22/2019 AMEZCUA DO, DAMARI Ot F11.21 OPIOID DEPENDENCE, IN REMISSION 08/22/2019 AMEZCUA DO, DAMARI Ot F32.9 MAJOR DEPRESSIVE DISORDER, SINGLE EPISOD 08/22/2019 AMEZCUA DO, DAMARI Ot F41.9 ANXIETY DISORDER, UNSPECIFIED 08/22/2019 AMEZCUA DO, DAMARI Ot J45.52 SEVERE PERSISTENT ASTHMA WITH STATUS AST 08/22/2019 AMEZCUA DO, DAMARI Ot K21.9 GASTRO-ESOPHAGEAL REFLUX DISEASE WITHOUT 08/22/2019 AMEZCUA DO, DAMARI Ot K59.09 OTHER CONSTIPATION 08/22/2019 AMEZCUA DO, DAMARI Ot O99.53 DISEASES OF THE RESP SYS COMPLICATING TH Procedures Code Description Performed By Per geri On EX TRACTION OF PRODUCTS OF CONCEPTION, 07/17/2019 [...] NRG STATEMENT OF ADEQUACY: NRG INTERPRETATION/RESULT: NRG FARMER AND GRAZIER: NRG INFECTION: NRG COMMENT NRG Arterial blood [...] A AND B ANTIGENS BY IA [facility] Comprehensive metabolic panel - 04/13/19 13:15 Serum [...] NRG Serum or plasma glucose measurement (mass/volume) 126 [...] mg/dL 8.5-10.1 Automated blood complete blood count (he mogram) panel - 04/14/19 05:37 Blood leukocytes [...] NRG Blood erythrocyte morphology finding identification NORMAL NR Bacterial blood culture - 05/02/19 07:30 Bacterial blood culture NG NR Influenza virus A and B antigen detectio n - 05/02/19 07:38 CALL POSITIVES (F1 HELP) CALLED TO MELISSA AT 0816 NR FLU RESULT POSITIVE FOR INFLUENZA A ANT [...] pa ashu - 07/17/19 11:13 WRISTBAND NUMBER [id number] NRG ABO+Rh group AP NRG Blood group [...] (moles/volume) 15 mmol/L 5-14 Serum or plasma urea nitrogen measurement (mass/volume ) 12 mg/dL 7-18 Serum or plasma creatinine measurement (mass/volume) 0.82 mg/dL 0.60-1.30 Serum or plasma urea nitrogen/creatinine mass ratio 15 NRG Serum or plasma creatinine measurement w ith calculation of estimated glomerular filtration rate > NRG Serum or plasma glucose measurement (mass/volume) 116 mg/dL 70-105 Serum or plasma calcium measurement (mass/volume) 9.0 mg/dL 8.5-10.1 Serum or plasma total bilirubin measurement (mass/volu me) 0.3 mg/dL 0.1-1.0 Serum or plasma alkaline phosphatase jacob surement (enzymatic activity/volume) 128 U/L 40-136 Serum or plasma aspartate aminotransfera se measurement (enzymatic activity/volume) 22 U/L 5-34 Serum or plasma alanine aminotransferase measurement (enzymatic activity/volume) 19 U/L 0-55 Serum or plasma protein measurement (mass/volume) 7.8 g/dL 6.4-8.2 Serum or plasma albumin measurement (mass/volume) 4.5 g/dL 3.2-4.5 CALCIUM CORRECTED 8.6 mg/dL 8.5-10.1 Serum or plasma C reactive protein measu rement (mass/volume) - 08/21/19 00:15 Serum or plasma C reactive protein measurement (mass/v olume) 1.47 mg/dL 0.00-0.50 Magnesium - 08/21/19 00:15 Magnesium 2.4 mg/dL 1.6-2.4 Serum or plasma C reactive protein measu rement (mass/volume) - 08/21/19 00:15 Serum or plasma C reactive protein measurement (mass/v olume) 1.47 mg/dL 0.00-0.50 Methicillin resistant Staphylococcus aur eus (MRSA) screening culture - 08/21/19 03:09 Methicillin resistant Staphylococcus aureus (MRSA) scr eening culture NEG NRG Complete blood count (CBC) with automate d white blood cell (WBC) differential - 08/21/19 03:36 Blood leukocytes automated count (number/volume) 14.3 10*3/uL 4.3-11.0 Blood erythrocytes automated count (number/volume) 4.65 10*6/uL 4.35-5.85 Venous blood hemoglobin measurement (mass/volume) 11.3 g/dL 11.5-16.0 Blood hematocrit (volume fraction) 36 % 35-52 Automated erythrocyte mean corpuscular volume 77 [ foz_us] 80-99 Automated erythrocyte mean corpuscular h emoglobin (mass per erythrocyte) 24 pg 25-34 Automated erythrocyte mean corpuscular h emoglobin concentration measurement (mass/volume) 32 g/dL 32-36 Automated erythrocyte distribution width ratio 22. 3 % 10.0- 14.5 Automated blood platelet count (count/volume) 392 10*3/uL 130-400 Automated blood platelet mean volume measurement 9.5 [foz_us] 7.4-10.4 Automated blood neutrophils/100 leukocytes 92 % 42-75 Automated blood lymphocytes/100 leukocytes 6 % 12-44 Blood monocytes/100 leukocytes 1 % 0-12 Automated blood eosinophils/100 leukocytes 1 % 0-10 Automated blood basophils/100 leukocytes 0 % 0-10 Blood neutrophils automated count (number/volume) 13.1 10*3 1.8-7.8 Blood lymphocytes automated count (number/volume) 0.8 10*3 1.0-4.0 Blood monocytes automated count (number/volume) 0. 2 10*3 0.0-1.0 Automated eosinophil count 0.1 10*3/uL 0 .0-0.3 Automated blood basophil count (count/volume) 0.0 10*3/uL 0.0-0.1 Comprehensive metabolic panel - 08/21/19 03:36 Serum or plasma sodium measurement (moles/volume) 138 mmol/L 135-145 Serum or plasma potassium measurement (moles/volume) 2.8 mmol/L 3.6-5.0 Serum or plasma chloride measurement (moles/volume) 103 mmol/L 98-107 Carbon dioxide 20 mmol/L 21-32 Serum or plasma anion gap determination (moles/volume) 15 mmol/L 5-14 Serum or plasma urea nitrogen measurement (mass/volume ) 11 mg/dL 7-18 Serum or plasma creatinine measurement (mass/volume) 0.85 mg/dL 0.60-1.30 Serum or plasma urea nitrogen/creatinine mass ratio 13 NRG Serum or plasma creatinine measurement w ith calculation of estimated glomerular filtration rate > NRG Serum or plasma glucose measurement (mass/volume) 190 mg/dL 70-105 Serum or plasma calcium measurement (mass/volume) 8.8 mg/dL 8.5-10.1 Serum or plasma total bilirubin measurement (mass/volu me) 0.2 mg/dL 0.1-1.0 Serum or plasma alkaline phosphatase jacob surement (enzymatic activity/volume) 129 U/L 40-136 Serum or plasma aspartate aminotransfera se measurement (enzymatic activity/volume) 19 U/L 5-34 Serum or plasma alanine aminotransferase measurement (enzymatic activity/volume) 17 U/L 0-55 Serum or plasma protein measurement (mass/volume) 7.7 g/dL 6.4-8.2 Serum or plasma albumin measurement (mass/volume) 4.4 g/dL 3.2-4.5 CALCIUM CORRECTED 8.5 mg/dL 8.5-10.1 Manual absolute plasma cell count - 08/02 12/22 03:36 Blood monocytes/100 leukocytes 3 % NRG Manual blood segmented neutrophils/100 leukocytes 85 % NRG Blood band neutrophils/100 leukocytes 3 % NRG Manual blood lymphocytes/100 leukocytes 8 % NRG Manual eosinophils/100 leukocytes in nose 1 % NRG Blood anisocytosis detection by light microscopy S LIGHT NRG Serum or plasma phosphate measurement (m ass/volume) - 08/21/19 03:36 Serum or plasma phosphate measurement (mass/volume) 4.6 mg/dL 2.3-4.7 Magnesium - 08/21/19 03:36 Magnesium 2.3 mg/dL 1.6-2.4 Complete blood count (CBC) with automate d white blood cell (WBC) differential - 08/22/19 04:20 Blood leukocytes automated count (number/volume) 25.3 10*3/uL 4.3-11.0 Blood erythrocytes automated count (number/volume) 4.27 10*6/uL 4.35-5.85 Venous blood hemoglobin measurement (mass/volume) 10.6 g/dL 11.5-16.0 Blood hematocrit (volume fraction) 34 % 35-52 Automated erythrocyte mean corpuscular volume 79 [ foz_us] 80-99 Automated erythrocyte mean corpuscular h emoglobin (mass per erythrocyte) 25 pg 25-34 Automated erythrocyte mean corpuscular h emoglobin concentration measurement (mass/volume) 31 g/dL 32-36 Automated erythrocyte distribution width ratio 23. 3 % 10.0- 14.5 Automated blood platelet count (count/volume) 368 10*3/uL 130-400 Automated blood platelet mean volume measurement 10.2 [foz_us] 7.4-10.4 Automated blood neutrophils/100 leukocytes 94 % 42-75 Automated blood lymphocytes/100 leukocytes 3 % 12-44 Blood monocytes/100 leukocytes 2 % 0-12 Automated blood eosinophils/100 leukocytes 0 % 0-10 Automated blood basophils/100 leukocytes 0 % 0-10 Blood neutrophils automated count (number/volume) 23.9 10*3 1.8-7.8 Blood lymphocytes automated count (number/volume) 0.8 10*3 1.0-4.0 Blood monocytes automated count (number/volume) 0. 6 10*3 0.0-1.0 Automated eosinophil count 0.0 10*3/uL 0 .0-0.3 Automated blood basophil count (count/volume) 0.0 10*3/uL 0.0-0.1 Whole blood basic metabolic panel - 08/03 04:20 Serum or plasma sodium measurement (moles/volume) 138 mmol/L 135-145 Serum or plasma potassium measurement (moles/volume) 3.9 mmol/L 3.6-5.0 Serum or plasma chloride measurement (moles/volume) 108 mmol/L 98-107 Carbon dioxide 18 mmol/L 21-32 Serum or plasma anion gap determination (moles/volume) 12 mmol/L 5-14 Serum or plasma urea nitrogen measurement (mass/volume ) 7 mg/dL 7-18 Serum or plasma creatinine measurement (mass/volume) 0.69 mg/dL 0.60-1.30 Serum or plasma urea nitrogen/creatinine mass ratio 10 NRG Serum or plasma creatinine measurement w ith calculation of estimated glomerular filtration rate > NRG Serum or plasma glucose measurement (mass/volume) 162 mg/dL 70-105 Serum or plasma calcium measurement (mass/volume) 8.9 mg/dL 8.5-10.1 Encounters ACCT No. Visit Date/Time Discharge Status Pt. Type Provider Facility Loc./Unit Complaint [id number] 12/25/2015 16:55:02 12/25/2015 23:59: 59 [facility] Outpatient Jose Manuel Pace [id number] 12/01/2015 16:37:10 12/01/2015 23:59: 59 [facility] Outpatient Jose Manuel Pace [id number] 10/18/2015 14:41:33 10/18/2015 23:59: 59 [facility] Outpatient Mervat Dumont [id number] 05/29/2015 20:52:56 05/29/2015 23:59: 59 [facility] Outpatient Carmen Jeff [id number] 05/26/2015 17:39:30 05/26/2015 23:59: 59 [facility] Outpatient Carmen Jeff [id number] 05/14/2015 14:45:27 05/14/2015 23:59: 59 [facility] Outpatient Carmen Jeff [id number] 04/05/2015 20:41:16 04/05/2015 23:59: 59 [facility] Outpatient Mervat Dumont [id number] 08/21/2019 01:33:00 13:12:00 DIS Outpatient DAMARI AMEZCUA DO Via [facility] 4TH STATUS ASTHMA [id number] 07/17/2019 09:50:00 12:50:00 DIS Inpatient ABI CANTOR DO [facility] WS PREVIOUS [id number] 07/11/2019 10:15:00 020 10:53:00 DIS Outpatient ABI CANTOR DO [facility] PREOP PREVIOUS [id number] 06/26/2019 12:52:00 23:59:59 CLS Outpatient BOOM GARCIAAH Christen SNOW GROOMER [facility] LAB [id number] 05/02/2019 14:40:00 10:07:00 DIS Outpatient DUANE QUACH MD [facility] 4TH INFLUENZA A;7 MONTH GESTATION;SEPSIS;ASTHMA EXACER [id number] 04/13/2019 14:15:00 13:45:00 DIS Inpatient RO SELLERS MD [facility] 4TH ASTHMA W EXACERBATION, HX OF PREG,HYPOXIC [id number] 04/09/2019 19:41:00 20:18:00 DIS Outpatient KRYS PRIDE APRN [facility] ER DENTAL PAIN/6 MO PREG [id number] 10/16/2018 14:00:00 019 15:10:00 DIS Emergency KRYS PRIDE APRN [facility] ER EYE SWELLING [id number] 11/11/2019 12:30:[address] Emergency KRYS PRIDE APRN [facility] ER ASTHMA ATTACK [id number] 09/13/2019 13:00:00 09/13/2019 23:59:5 9 CLS Outpatient KENNY CABRERA [facility] [id number] 06/28/2019 12:20:00 Document Registration [id number] 06/26/2019 11:40:00 Document Registration [id number] 06/12/2019 11:40:00 Document Registration [id number] 04/17/2019 15:40:00 Document Registration [id number] 12/20/2018 13:20:00 Document Registration [id number] 09/12/2017 11:20:00 Document Registration [id number] 08/15/2015 10:55:09 08/14 10:55:09 DIS Outpatient [id number] 08/15/2015 10:54:48 08/14 10:54:48 DIS Outpatient [id number] 07/05/2013 16:54:00 07/05 16:54:00 DIS Outpatient [id number] 06/22/2013 09:33:18 06/22 09:33:18 Outpatient [id number] 06/22/2013 09:06:52 06/22 09:06:52 Outpatient
[2019-11-11] MEDS ORDERED: RT-ALBUTEROL SULF 2.5 MG/3 ML PRE-MIX VIAL ONE (12:38)
[2019-11-11 12:40] LABS: BASOPHILS # (AUTO) 0.1 10^3/uL (0.0-0.1); BASOPHILS % (AUTO) 1 % (0-10); EOSINOPHILS # (AUTO) 0.6 10^3/uL (0.0-0.3); EOSINOPHILS % (AUTO) 6 % (0-10); HEMATOCRIT 37 % (35-52); HEMOGLOBIN 12.2 G/DL (11.5-16.0); LYMPHOCYTES # (AUTO) 2.3 X 10^3 (1.0-4.0); LYMPHOCYTES % (AUTO) 24 % (12-44); MEAN CORPUSCULAR HEMOGLOBIN 27 PG (25-34); MEAN CORPUSCULAR HGB CONC 33 G/DL (32-36); MEAN CORPUSCULAR VOLUME 81 FL (80-99); MEAN PLATELET VOLUME 8.8 FL (7.4-10.4); MONOCYTES # (AUTO) 0.7 X 10^3 (0.0-1.0); MONOCYTES % (AUTO) 7 % (0-12); NEUTROPHILS % (AUTO) 62 % (42-75); PLATELET COUNT 388 10^3/uL (130-400); RED CELL DISTRIBUTION WIDTH 14.6 % (10.0-14.5); WHITE BLOOD COUNT 9.6 10^3/uL (4.3-11.0)
[2019-11-11] MEDS ORDERED: methylPREDNISolone 125 MG (Solu-MEDROL) VIAL IVP ONE (12:45)
[2019-11-11] MEDS ORDERED: NS IV 1000 ML 1,000 ML IV SCH (12:45)
[2019-11-11] MEDS ORDERED: LORazepam INJ 2 MG/ML (ATIVAN) VIAL IVP PRN (12:45)
[2019-11-11] MEDS ORDERED: KETAMINE/NaCl 50 MG/5 ML SYRINGE (ED ONLY) IV ONE (12:45)
[2019-11-11] MEDS ORDERED: RT-ALBUTEROL/IPRATROPIUM 3 ML (DUONEB) VIAL INH ONE (12:45)
--- NOTE | 2019-11-11 12:56 | ED Respiratory ---
General Chief Complaint: Respiratory Problems Stated Complaint: ASTHMA ATTACK Nursing Triage Note: PT AMB TO [facility] 5 WITH COMPLAINT OF ASTHMA ATTACK THAT STARTED THIS MORNING AROUND 6AM. PT WAS TAKING ALBUTEROL TREATMENT AT HOME WITH NO RELIEF. Source: patient Exam Limitations: no limitations History of Present Illness Date Seen by Provider: Nov 11, 2019 Time Seen by Provider: 12:40 Initial Comments To ER with reports of asthma attack since 6 AM this morning. She has taken about 10 albuterol breathing treatments without improvement. She ran out of her Advair one week ago. Timing/Duration: this morning Severity: moderate Associated Symptoms: cough, shortness of breath, wheezing Allergies and Home Medications Allergies Coded Allergies: No Known Drug Allergies (Unverified , 07/11/19) Home Medications Albuterol Sulfate 1 Puff Puff, 2 PUFF IH Q4H PRN for WHEEZING 1 PUFF = 90 MCG Prescribed by: RO SELLERS on 04/15/19 1131 Albuterol Sulfate 2.5 Mg/3 Ml Vial.neb, 2.5 MG NEB Q4H PRN for SHORTNESS OF BREATH, (Reported) Budesonide 180 Mcg Aer.pow.ba, 1 PUFF IH BID PRN for SHORTNESS OF BREATH, (Repor sharee) Ferrous Sulfate 325 Mg Tablet, 325 MG PO BID WITH MEALS Prescribed by: ABI CANTOR on 07/18/19 0926 Fluoxetine HCl 20 Mg Capsule, 20 MG PO DAILY, (Reported) Ibuprofen 200 Mg Tablet, 400-800 MG PO Q8H, (Reported) Loratadine 10 Mg Tablet, 10 MG PO DAILY, (Reported) Mv,Ca,Min/Iron Fum/FA/Vit K 1 Each Tablet, 1 EACH PO DAILY, (Reported) Prednisone 10 Mg Tab.ds.pk, 10 MG PO DAILY Take 6 tabs(60mg)daily,decrease by 1 tab(10MG)daily. Prescribed by: DAMARI AMEZCUA on 08/22/19 1118 Patient Home Medication List Home Medication List Reviewed: Yes Review of Systems Review of Systems Constitutional: see HPI EENTM: see HPI Respiratory: see HPI, cough, short of breath, wheezing Cardiovascular: no symptoms reported Genitourinary: no symptoms reported Musculoskeletal: no symptoms reported Skin: no symptoms reported Psychiatric/Neurological: No Symptoms Reported Past Bqsdnuy-Zudzai-Gqddfq Hx Patient Social History Alcohol Use: Denies Use Number of Drinks Today: AA Alcohol Beverage of Choice: Beer Recreational Drug Use: No Drug of Choice: Meth history/Opiod history Smoking Status: Former Smoker Former Smoker, Quit: Jul 10, 2016 2nd Hand Smoke Exposure: No Recent Foreign Travel: No Contact w/Someone Who Travel: No Recent Infectious Disease Expo: No Recent Hopitalizations: No Immunizations Up To Date Tetanus Booster (TDap): Unknown PED Vaccines UTD: Yes Date of Pneumonia Vaccine: Jul 18, 2019 Date of Influenza Vaccine: Jan 02, 2019 Seasonal Allergies Seasonal Allergies: No Past Medical History Surgeries: Yes Section Respiratory: Yes Asthma Cardiac: No Neurological: Yes Reproductive Disorders: Yes Female Reproductive Disorders: Denies Sexually Transmitted Disease: No HIV/AIDS: No Genitourinary: No Gastrointestinal: Yes (DURING ) Gastroesophageal Reflux, Chronic Constipation Musculoskeletal: No Endocrine: No HEENT: No (GLASSES) Loss of Vision: Denies Hearing Impairment: Denies Cancer: No Psychosocial: Yes Anxiety, Depression Integumentary: No Blood Disorders: No (ANEMIA) Adverse Reaction/Blood Tranf: No (N/A) Family Medical History Diabetes mellitus Grandparents (Maternal Grandmother) Drug abuse 19 MOTHER G8 SISTER (Recovering Heroin Addict THC) FH: ovarian cancer 19 MOTHER Grandparents (Maternal Grandmother) Fibrocystic disease of breast 19 MOTHER Grandparents (Paternal Grandmother) Psychosocial problem 19 MOTHER (Bipolar) Cancer, Diabetes Physical Exam Vital Signs - First Documented 11/11/19 11/11/19 12:29 13:22 Pulse 105 Resp 60 B/P (MAP) 110/94 (99) Pulse Ox 91 O2 Delivery Nasal Cannula O2 Flow Rate 3.00 FiO2 21 Capillary Refill : Less Than 3 Seconds Height: 5'7.00" Weight: 170lbs. oz. 77.093487il; 26.00 BMI Method:Stated General Appearance: WD/WN, severe distress, other (respiratory rate of 60, 88% oxygen on room air) Eyes: Bilateral Eye Normal Inspection, Bilateral Eye PERRL, Bilateral Eye EOMI Respiratory: respiratory distress, decreased breath sounds, accessory muscle use, wheezing Gastrointestinal: normal bowel sounds, non tender, soft Neurologic/Psychiatric: alert, normal mood/affect, oriented x 3 Skin: normal color, warm/dry Progress/Results/Core Measures Suspected Sepsis Recent Fever Within 48 Hours: No Infection Criteria Present: None New/Unexplained Altered Menta: No Sepsis Screen: No Definite Risk SIRS Temperature: Pulse: 105 Respiratory Rate: 60 Laboratory Tests 11/11/19 12:30: White Blood Count 9.6 Blood Pressure 110 /94 Mean: 99 Laboratory Tests 11/11/19 12:30: Creatinine 0.71, Platelet Count 388, Total Bilirubin 0.3 Results/Orders Lab Results Laboratory Tests Test 11/11/19 12:30 Range/Units White Blood Count 9.6 4.3-11.0 10^3/uL Red Blood Count 4.52 4.35-5.85 10^6/uL Hemoglobin 12.2 11.5-16.0 G/DL Hematocrit 37 35-52 % Mean Corpuscular Volume 81 80-99 FL Mean Corpuscular Hemoglobin 27 25-34 PG Mean Corpuscular Hemoglobin Concent 33 32-36 G/DL Red Cell Distribution Width 14.6 H 10.0-14.5 % Platelet Count 388 130-400 10^3/uL Mean Platelet Volume 8.8 7.4-10.4 FL Neutrophils (%) (Auto) 62 42-75 % Lymphocytes (%) (Auto) 24 12-44 % Monocytes (%) (Auto) 7 0-12 % Eosinophils (%) (Auto) 6 0-10 % Basophils (%) (Auto) 1 0-10 % Neutrophils # (Auto) 6.0 1.8-7.8 X 10^3 Lymphocytes # (Auto) 2.3 1.0-4.0 X 10^3 Monocytes # (Auto) 0.7 0.0-1.0 X 10^3 Eosinophils # (Auto) 0.6 H 0.0-0.3 10^3/uL Basophils # (Auto) 0.1 0.0-0.1 10^3/uL Sodium Level 141 135-145 MMOL/L Potassium Level 3.6 3.6-5.0 MMOL/L Chloride Level 108 H 98-107 MMOL/L Carbon Dioxide Level 21 21-32 MMOL/L Anion Gap 12 5-14 MMOL/L Blood Urea Nitrogen 12 7-18 MG/DL Creatinine 0.71 0.60-1.30 MG/DL Estimat Glomerular Filtration Rate > 60 BUN/Creatinine Ratio 17 Glucose Level 103 70-105 MG/DL Calcium Level 9.0 8.5-10.1 MG/DL Corrected Calcium 9.0 8.5-10.1 MG/DL Total Bilirubin 0.3 0.1-1.0 MG/DL Aspartate Amino Transf (AST/SGOT) 17 5-34 U/L Alanine Aminotransferase (ALT/SGPT) 15 0-55 U/L Alkaline Phosphatase 87 40-136 U/L Total Protein 7.1 6.4-8.2 GM/DL Albumin 4.0 3.2-4.5 GM/DL Serum Test, Qualitative NEGATIVE NEGATIVE My Orders Orders - KRYS PRIDE APRN Lorazepam Injection (Ativan Injection) (11/11/19 12:45) Magnesium 1 Gm/100 Ml Ivpb (Magnesium Bryant (11/11/19 12:45) Albuterol/Ipra Inhalation Soln (Duoneb I (11/11/19 12:45) Methylprednisolone Sod Succ (Solu-Medrol (11/11/19 12:45) Svn Small Volume Nebulizer (11/11/19 12:33) Cbc With Automated Diff (11/11/19 12:33) Comprehensive Metabolic Panel (11/11/19 12:33) Ed Iv/Invasive Line Start (11/11/19 12:33) Chest 1 View, Ap/Pa Only (11/11/19 12:33) Hcg,Qualitative Serum (11/11/19 12:33) Ns Iv 1000 Ml (Sodium Chloride 0.9%) (11/11/19 12:45) Ketamine Syringe (Ed Only) (Ketamine Syr (11/11/19 12:45) Albuterol Pre-Mix Nebs (Rt) (Proventil (11/11/19 12:38) Medications Given in ED Current Medications Medications Dose Ordered Sig/Kay Route Start Time Stop Time Status Last Admin Dose Admin Albuterol Sulfate 2.5 mg STK-MED ONCE .ROUTE 11/11/19 12:38 11/11/19 12:42 DC 11/11/19 13:52 15 MG Albuterol/ Ipratropium 3 ml ONCE ONCE INH 11/11/19 12:45 11/11/19 12:46 DC 11/11/19 13:53 3 ML Ketamine HCl 30 mg ONCE ONCE IV 11/11/19 12:45 11/11/19 12:46 DC 11/11/19 12:40 50 MG Lorazepam 0.5 mg ONCE PRN IVP 11/11/19 12:45 11/11/19 15:16 DC 11/11/19 12:35 0.5 MG Methylprednisolone Sodium Succinate 125 mg ONCE ONCE IVP 11/11/19 12:45 11/11/19 12:46 DC 11/11/19 12:35 125 MG Vital Signs/I&O 11/11/19 11/11/19 12:29 13:22 Pulse 105 Resp 60 B/P (MAP) 110/94 (99) Pulse Ox 91 94 O2 Delivery Nasal Cannula NIV Bilevel O2 Flow Rate 3.00 FiO2 21 Capillary Refill : Less Than 3 Seconds Blood Pressure Mean: 99 Departure Communication (Admissions) Time/Spoke to Admitting Phy: 13:[address] Nance, will admit to ICU Presented in extremis, started on BiPAP 15/825% FiO2, given 0.5 mg lorazepam, 50 mg of ketamine IV. She was briefly hypotensive so magnesium sulfate bolus was a voided. After these interventions her oxygen saturation increased to 97% with improved aeration of the lungs and reduced wheezing. She's getting an in-line hour-long treatment. Impression Primary Impression: Status asthmaticus Disposition: ADMITTED INPATIENT Condition: Improved Admissions Decision to Admit Reason: Admit from ER (General) Decision to Admit/Date: Nov 11, 2019 Time/Decision to Admit Time: 13:39 Departure-Patient Inst. Referrals: KENNY CABRERA MD (PCP/Family) Primary Care Physician KRYS PRIDE APRN Nov 11, 2019 12:56
[2019-11-11 13:09] LABS: CHLORIDE 108 MMOL/L (98-107); POTASSIUM 3.6 MMOL/L (3.6-5.0); SODIUM 141 MMOL/L (135-145)
[2019-11-11 13:11] LABS: GLUCOSE 103 MG/DL (70-105); TOTAL PROTEIN 7.1 GM/DL (6.4-8.2)
[2019-11-11 13:12] LABS: CARBON DIOXIDE 21 MMOL/L (21-32)
[2019-11-11 13:13] LABS: BILIRUBIN,TOTAL 0.3 MG/DL (0.1-1.0)
[2019-11-11 13:14] LABS: ALKALINE PHOSPHATASE 87 U/L (40-136)
[2019-11-11 13:15] LABS: CREATININE SERUM 0.71 MG/DL (0.60-1.30); GFR ESTIMATED > 60
[2019-11-11 13:16] LABS: BUN/CREATININE RATIO 17
[2019-11-11 13:17] LABS: ALANINE AMINOTRANSFERASE 15 U/L (0-55)
--- NOTE | 2019-11-11 13:32 | Diagnostic Imaging Report ---
INDICATION: Dyspnea. COMPARISON: 05/02/2019. FINDINGS: Portable chest. The lungs are well-aerated and clear. Heart is not enlarged. No pneumothorax or pleural effusion. No bony abnormality. IMPRESSION: Normal portable chest. Dictated by: Dictated on workstation # [id number]
[2019-11-11 13:41] LABS: ABG BASE EXCESS -3.1 MMOL/L (-2.5-2.5); ABG OXYGEN SATURATION 92 % (94-100); ABG PCO2 42 MMHG (35-45); ABG PO2 70 MMHG (79-93); ABG TCO2 23.2 MMOL/L (21.0-31.0)
[2019-11-11 13:44] LABS: ABG PH 7.34 (7.37-7.43); ALLENS TEST YES-POS; INSPIRED O2 21%; PATIENT TEMP 36.5; VENTILATOR NO
--- OUTSIDE RECORDS SUMMARY | 2019-11-11 13:46 | XMS REPORT | Continuity of Care Document ---
Author Organization Unknown Address Unknown Phone Unavailable Allergies Active Description Code Type Severity Reaction Onset Reported/Identified Relationship to Patient Clinical Status Yes No Known Drug Allergies [id number] Drug Allergy Unknown N/A 07/11/2019 Medications There [...] MD, Ot J10. 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 Type Provider Facility Loc./Unit Complaint [id number] 12/25/2015 16:55:02 12/25/2015 23:59: [facility] Outpatient Jose Manuel Pace [id number] 12/01/2015 16:37:10 12/01/2015 23:59: 59 [facility] Outpatient Jose Manuel Pace [id number] 10/18/2015 14:41:33 10/18/2015 23:59: 59 [facility] Outpatient Mervat Dumont [id number] 05/29/2015 20:52:56 05/29/2015 23:59: [facility] Outpatient Carmen Jeff [id number] 05/26/2015 17:39:30 05/26/2015 23:59: [facility] Outpatient Carmen Jeff [id number] 05/14/2015 14:45:27 05/14/2015 23:59: [facility] Outpatient Carmen Jeff [id number] 04/05/2015 20:41:16 04/05/2015 23:59: [facility] Outpatient Mervat Dumont [id number] 08/21/2019 01:33:00 13:12:00 DIS Outpatient DAMARI AMEZCUA DO [facility] 4TH STATUS ASTHMA [id number] 07/17/2019 09:50:00 12:50:00 DIS Inpatient ABI CANTOR DO [facility] WS PREVIOUS [id number] 07/11/2019 10:15:00 020 10:53:00 DIS Outpatient ABI CANTOR DO [facility] PREOP PREVIOUS [id number] 06/26/2019 12:52:00 23:59:59 CLS Outpatient ABHISHEK GARCIA [facility] LAB [id number] 05/02/2019 14:40:00 10:07:00 DIS Outpatient DUANE QUACH MD [facility] 4TH INFLUENZA A;7 MONTH GESTATION;SEPSIS;ASTHMA EXACER [id number] 04/13/2019 14:15:00 13:45:00 DIS Inpatient RO SELLERS MD [facility] 4TH ASTHMA W EXACERBATION, HX OF PREG,HYPOXIC [id number] 04/09/2019 19:41:00 20:18:00 DIS Outpatient KRYS PRIDE APRN [facility] ER DENTAL PAIN/6 MO PREG [id number] 10/16/2018 14:00:00 019 15:10:00 DIS Emergency KRYS PRIDE APRN [facility] ER EYE SWELLING [id number] 11/11/2019 13:24:[address] Inpatient MEE BARILLAS, JATINDER Escobar [facility] ICU STATUS ASTHMATICUS [id number] 09/13/2019 13:00:00 09/13/2019 23:59:5 9 CLS Outpatient KENNY CABRERA [facility] [id number] 06/28/2019 12:20:00 Document Registration [id number] 06/26/2019 11:40:00 Document Registration [id number] 06/12/2019 11:40:00 Document Registration [id number] 04/17/2019 15:40:00 Document Registration [id number] 12/20/2018 13:20:00 Document Registration [id number] 09/12/2017 11:20:00 Document Registration [id number] 08/15/2015 10:55:09 08/14 10:55:09 DIS Outpatient [id number] 08/15/2015 10:54:48 08/14 10:54:48 DIS Outpatient [id number] 07/05/2013 16:54:00 07/05 16:54:00 DIS Outpatient [id number] 06/22/2013 09:33:18 06/22 09:33:18 Outpatient [id number] 06/22/2013 09:06:52 06/22 09:06:52 Outpatient
--- NOTE | 2019-11-11 14:56 | History & Physical-Hospitalist ---
History of Present Illness HPI/Chief Complaint This is a 29-year-old white female with a one-day history of increasing shortness of air. She has a three-year history of asthma requiring several emergency room visits. She had been doing fairly well yesterday but works at [employer] and has to go in and out of the heat and humidity. She has been doing hojz-bl-uwnk breathing treatments all morning without success. She denies having any other precipitating factors. She has never been on a ventilator. Source: patient Exam Limitations: no limitations, other (BiPAP) Date Seen 11/11/19 Time Seen by a Provider: 14:53 Attending Physician Cee Nance MD PCP Gela Mcdaniels MD Referring Physician Date of Admission Nov 11, 2019 at 13:24 Home Medications & Allergies Home Medications Reviewed patient Home Medication Reconciliation performed by pharmacy medication reconciliations electronic engineering technician and/or nursing. Patients Allergies have been reviewed. Allergies Allergies Coded Allergies No Known Drug Allergies (Unverified07/11/19) Past Bjfsuop-Xbghez-Jeaxvo Hx Past Med/Social Hx: Reviewed Nursing Past Med/Soc Hx Patient Social History Marrital Status: single Employed/Student: employed Alcohol Use: Denies Use Number of Drinks Today: AA Alcohol Beverage of Choice: Beer Recreational Drug Use: No Drug of Choice: Meth history/Opiod history Smoking Status: Former Smoker Former Smoker, Quit: Jul 10, 2016 2nd Hand Smoke Exposure: No Recent Foreign Travel: No Contact w/other who traveled: No Recent Hopitalizations: No Recent Infectious Disease Expo: No Immunizations Up To Date Tetanus Booster (TDap): Unknown Pediatric: Yes Date of Pneumonia Vaccine: Jul 18, 2019 Date of Influenza Vaccine: Jan 02, 2019 Seasonal Allergies Seasonal Allergies: No Past Medical History Surgeries: Section Respiratory: Asthma Reproductive: Yes Sexually Transmitted Disease: No HIV/AIDS: No Female Reproductive Disorders: Denies Gastrointestinal: Gastroesophageal Reflux, Chronic Constipation Loss of Vision: Denies Hearing Impairment: Denies Psychosocial: Anxiety, Depression History of Blood Disorders: No (ANEMIA) Adverse Reaction to Blood Gaines: No (N/A) Family History Diabetes mellitus Grandparents (Maternal Grandmother) Drug abuse 19 MOTHER G8 SISTER (Recovering Heroin Addict THC) FH: ovarian cancer 19 MOTHER Grandparents (Maternal Grandmother) Fibrocystic disease of breast 19 MOTHER Grandparents (Paternal Grandmother) Psychosocial problem 19 MOTHER (Bipolar) Cancer, Diabetes Review of Systems Constitutional: see HPI EENTM: no symptoms reported Respiratory: cough, orthopnea, short of breath, wheezing Cardiovascular: no symptoms reported Gastrointestinal: no symptoms reported Genitourinary: no symptoms reported Musculoskeletal: no symptoms reported Skin: no symptoms reported Psychiatric/Neurological: No Symptoms Reported Physical Exam Physical Exam Vital Signs Vital Signs - First Documented 11/11/19 11/11/19 12:29 13:22 Pulse 105 Resp 60 B/P (MAP) 110/94 (99) Pulse Ox 91 O2 Delivery Nasal Cannula O2 Flow Rate 3.00 FiO2 21 Capillary Refill : Less Than 3 Seconds Height, Weight, BMI Height: 5'7.00" Weight: 170lbs. oz. 77.493281fz; 26.00 BMI Method:Stated General Appearance: WD/WN, Mild Distress, Other (BiPAP) HEENT: Normal ENT Inspection Neck: Full Range of Motion, Normal Inspection, Non Tender, Supple Respiratory: Decreased Breath Sounds, Rhonci, Wheezing Cardiovascular: Tachycardia Gastrointestinal: Normal Bowel Sounds, Non Tender, Soft Extremity: Normal Capillary Refill, Normal Inspection, Normal Range of Motion, Non Tender, No Calf Tenderness Neurologic/Psychiatric: Alert, Oriented x3, No Motor/Sensory Deficits, Normal Mood/Affect Skin: Normal Color, Warm/Dry Lymphatic: No Adenopathy Results Results/Procedures Labs Laboratory Tests 11/11/19 12:30 Patient resulted labs reviewed. Imaging: Reviewed Imaging Report Assessment/Plan Admission Diagnosis Status asthmaticus currently on BiPAP and aggressive pulmonary toilet will monitor overnight in the ICU with eICU Admission Status: Observation CEE NANCE MD Nov 11, 2019 14:56
[2019-11-11] MEDS ORDERED: ENOXAPARIN 40 MG/0.4 ML (LOVENOX) SYR SC SCH (15:00)
[2019-11-11] MEDS: MAGNESIUM 1 GM/100 ML IVPB 100 ML IV SCH (15:18)
[2019-11-11] MEDS ORDERED: ONDANSETRON 4 MG/2 ML (SDV) Z0FRAN IV PRN (15:30)
[2019-11-11] MEDS: NS IV 1000 ML 1,000 ML IV SCH (15:35)
[2019-11-11] MEDS ORDERED: RT-ALBUTEROL SULF 2.5 MG/3 ML PRE-MIX VIAL INH PRN (16:15)
[2019-11-11] MEDS ORDERED: ACETAMINOPHEN 325 MG TABLET ONE (17:36)
[2019-11-11] MEDS: ACETAMINOPHEN 500 MG TAB (TYLENOL) PO PRN (17:40)
[2019-11-11] MEDS: methylPREDNISolone 125 MG (Solu-MEDROL) VIAL IVP SCH ×2 (18:50→23:40)
[2019-11-11] MEDS ORDERED: ACET/BUTAL/CAFF (FIORICET) TAB PO STA (21:04)
[2019-11-11] MEDS: RT-ALBUTEROL/IPRATROPIUM 3 ML (DUONEB) VIAL INH SCH (21:37)
[2019-11-11] MEDS: ADVAIR HFA 115/21 MCG INHALER 8 GM IH SCH (21:38)
[2019-11-11] MEDS: LORazepam INJ 2 MG/ML (ATIVAN) VIAL IV PRN (22:00)
[2019-11-12] VITALS (10 sets, daily range): BP systolic 93–136; BP diastolic 58–78
[2019-11-12] MEDS: NS IV 1000 ML 1,000 ML IV SCH (01:35)
[2019-11-12] MEDS: ACETAMINOPHEN 500 MG TAB (TYLENOL) PO PRN (01:36)
[2019-11-12] MEDS: RT-ALBUTEROL/IPRATROPIUM 3 ML (DUONEB) VIAL INH SCH ×3 (02:33→09:24)
[2019-11-12] MEDS: LORazepam INJ 2 MG/ML (ATIVAN) VIAL IV PRN (03:22)
[2019-11-12 03:28] LABS: BASOPHILS % (AUTO) 0 % (0-10); EOSINOPHILS % (AUTO) 0 % (0-10); HEMATOCRIT 36 % (35-52); HEMOGLOBIN 11.9 G/DL (11.5-16.0); LYMPHOCYTES # (AUTO) 0.6 X 10^3 (1.0-4.0); LYMPHOCYTES % (AUTO) 9 % (12-44); MEAN CORPUSCULAR HEMOGLOBIN 27 PG (25-34); MEAN CORPUSCULAR HGB CONC 34 G/DL (32-36); MEAN CORPUSCULAR VOLUME 80 FL (80-99); MONOCYTES # (AUTO) 0.1 X 10^3 (0.0-1.0); MONOCYTES % (AUTO) 1 % (0-12); NEUTROPHILS # (AUTO) 6.2 X 10^3 (1.8-7.8); NEUTROPHILS % (AUTO) 90 % (42-75); PLATELET COUNT 375 10^3/uL (130-400); WHITE BLOOD COUNT 6.8 10^3/uL (4.3-11.0)
[2019-11-12 03:37] LABS: CHLORIDE 107 MMOL/L (98-107); SODIUM 136 MMOL/L (135-145)
[2019-11-12 03:38] LABS: CALCIUM 9.3 MG/DL (8.5-10.1)
[2019-11-12 03:39] LABS: GLUCOSE 156 MG/DL (70-105)
[2019-11-12 03:41] LABS: BILIRUBIN,TOTAL 0.3 MG/DL (0.1-1.0); CARBON DIOXIDE 23 MMOL/L (21-32)
[2019-11-12 03:43] LABS: ALKALINE PHOSPHATASE 83 U/L (40-136); CREATININE SERUM 0.68 MG/DL (0.60-1.30); GFR ESTIMATED > 60
[2019-11-12 03:44] LABS: BUN/CREATININE RATIO 13
[2019-11-12 03:46] LABS: ALANINE AMINOTRANSFERASE 15 U/L (0-55)
[2019-11-12 03:47] LABS: BAND NEUTROPHILS 3 %; LYMPHOCYTES % (MANUAL) 10 %; MONOCYTES % (MANUAL) 2 %; NEUTROPHILS % (MANUAL) 85 %; RBC MORPH NORMAL
[2019-11-12] MEDS ORDERED: methylPREDNISolone 125 MG (Solu-MEDROL) VIAL IVP SCH (06:00)
--- NOTE | 2019-11-12 06:03 | Pulmonary Consultation ---
History of Present Illness History of Present Illness Date Seen by Provider: Nov 12, 2019 Time Seen by Provider: 05:58 Date of Admission Allergies and Home Medications Allergies Coded Allergies: No Known Drug Allergies (Unverified , 07/11/19) Home Medications Albuterol Sulfate 1 Puff Puff, 2 PUFF IH Q4H PRN for WHEEZING 1 PUFF = 90 MCG Prescribed by: RO SELLERS on 04/15/19 1131 Albuterol Sulfate 2.5 Mg/3 Ml Vial.neb, 2.5 MG NEB Q4H PRN for SHORTNESS OF BREATH, (Reported) Budesonide 180 Mcg Aer.pow.ba, 1 PUFF IH BID PRN for SHORTNESS OF BREATH, (Reported) Ferrous Sulfate 325 Mg Tablet, 325 MG PO BID WITH MEALS Prescribed by: ABI CANTOR on 07/18/19 0926 Fluoxetine HCl 20 Mg Capsule, 20 MG PO DAILY, (Reported) Ibuprofen 200 Mg Tablet, 400-800 MG PO Q8H, (Reported) Loratadine 10 Mg Tablet, 10 MG PO DAILY, (Reported) Mv,Ca,Min/Iron Fum/FA/Vit K 1 Each Tablet, 1 EACH PO DAILY, (Reported) Prednisone 10 Mg Tab.ds.pk, 10 MG PO DAILY Take 6 tabs(60mg)daily,decrease by 1 tab(10MG)daily. Prescribed by: DAMARI AMEZCUA on 08/22/19 1118 Past Uiqqukf-Gwghwy-Lhnuwr Hx Past Med/Social Hx: Reviewed Nursing Past Med/Soc Hx Patient Social History Alcohol Use: Denies Use Number of Drinks Today: AA Alcohol Beverage of Choice: Beer Recreational Drug Use: No Drug of Choice: Meth history/Opiod history Smoking Status: Former Smoker Former Smoker, Quit: Jul 10, 2016 2nd Hand Smoke Exposure: No Recent Foreign Travel: No Contact w/Someone Who Travel: No Recent Infectious Disease Expo: No Recent Hopitalizations: No Immunizations Up To Date Tetanus Booster (TDap): Unknown PED Vaccines UTD: Yes Date of Pneumonia Vaccine: Jul 18, 2019 Date of Influenza Vaccine: Jan 02, 2019 Seasonal Allergies Seasonal Allergies: No Past Medical History Surgeries: Yes Section Respiratory: Yes Asthma Cardiac: No Neurological: Yes Reproductive Disorders: Yes Female Reproductive Disorders: Denies Sexually Transmitted Disease: No HIV/AIDS: No Genitourinary: No Gastrointestinal: Yes (DURING ) Gastroesophageal Reflux, Chronic Constipation Musculoskeletal: No Endocrine: No HEENT: No (GLASSES) Loss of Vision: Denies Hearing Impairment: Denies Cancer: No Psychosocial: Yes Anxiety, Depression Integumentary: No Blood Disorders: No (ANEMIA) Adverse Reaction/Blood Tranf: No (N/A) Family Medical History Diabetes mellitus Grandparents (Maternal Grandmother) Drug abuse 19 MOTHER G8 SISTER (Recovering Heroin Addict THC) FH: ovarian cancer 19 MOTHER Grandparents (Maternal Grandmother) Fibrocystic disease of breast 19 MOTHER Grandparents (Paternal Grandmother) Psychosocial problem 19 MOTHER (Bipolar) Cancer, Diabetes Review of Systems Time Seen by Provider: 05:58 Sepsis Event Evaluation Height, Weight, BMI Height: 5'7.00" Weight: 170lbs. oz. 77.653359yc; 26.00 BMI Method:Stated Exam Exam Vital Signs Date Time Temp Pulse Resp B/P (MAP) Pulse Ox O2 Delivery O2 Flow Rate FiO2 11/12/19 05:00 85 19 115/72 (86) 97 High Flow N/C 2.00 11/12/19 04:00 86 16 110/58 (75) 98 High Flow N/C 2.00 11/12/19 04:00 Nasal Cannula 2.00 11/12/19 03:00 81 16 103/78 (86) 95 High Flow N/C 2.00 11/12/19 02:37 High Flow N/C 2.00 11/12/19 02:34 97 High Flow N/C 3.00 11/12/19 02:00 75 25 106/72 (83) 96 High Flow N/C 6.00 11/12/19 01:00 80 11/12/19 01:00 76 12 112/78 (89) 96 High Flow N/C 6.00 11/12/19 00:00 Nasal Cannula 3.00 11/12/19 00:00 76 12 117/66 (83) 95 High Flow N/C 6.00 11/11/19 23:00 77 116/73 (87) 95 High Flow N/C 6.00 11/11/19 22:00 88 106/52 (70) 94 High Flow N/C 6.00 11/11/19 21:44 99 High Flow N/C 3.00 11/11/19 21:38 98 High Flow N/C 6.00 11/11/19 21:00 78 110/71 (84) 97 High Flow N/C 6.00 11/11/19 20:15 Nasal Cannula 6.00 11/11/19 20:00 101 114/71 (85) 96 High Flow N/C 6.00 11/11/19 20:00 36.5 11/11/19 19:00 78 34 112/67 (82) 96 High Flow N/C 6.00 11/11/19 19:00 82 11/11/19 18:43 97 NIV Bilevel 50 11/11/19 18:00 84 24 119/74 (89) 97 High Flow N/C 6.00 11/11/19 17:48 High Flow N/C 6.00 11/11/19 17:00 94 36 96 NIV Bilevel 30.00 11/11/19 16:00 78 96 NIV Bilevel 30.00 11/11/19 15:51 36.6 106 91 32 11/11/19 15:16 93 97 30.00 11/11/19 15:00 96 11/11/19 14:58 36.3 97 21 114/70 (85) 98 NIV Bilevel 30.00 11/11/19 14:45 100 24 114/70 (85) 98 NIV Bilevel 11/11/19 14:42 93 20 118/73 93 11/11/19 13:28 103 94 21.00 11/11/19 13:22 94 NIV Bilevel 21 11/11/19 12:29 105 60 110/94 (99) 91 Nasal Cannula 3.00 I & O 11/12/19 07:00 Intake Total 1950 ml Balance 1950 ml Height & Weight Height: 5'7.00" Weight: 170lbs. oz. 77.741759oa; 26.00 BMI Method:Stated General Appearance: WD/WN, Mild Distress, Other HEENT: Normal ENT Inspection Neck: Full Range of Motion, Normal Inspection, Non Tender, Supple Respiratory: Decreased Breath Sounds, Rhonci, Wheezing Cardiovascular: Tachycardia Capillary Refill: Less Than 3 Seconds Gastrointestinal: normal bowel sounds, non tender, soft Extremity: Normal Capillary Refill, Normal Inspection, Normal Range of Motion, Non Tender, No Calf Tenderness Neurologic/Psychiatric: Alert, Oriented x3, No Motor/Sensory Deficits, Normal Mood/Affect Skin: Normal Color, Warm/Dry Lymphatic: No Adenopathy Results Lab Laboratory Tests 11/11/19 12:30 11/12/19 03:10 Assessment/Plan Assessment/Plan Status asthmaticus - now much improved -SVNs with Duoneb currently Q6 per RT protocol -Change to Q4 Duoneb -Continue Advair -Solumedrol currently 125 Q 6 -Change to prednisone taper Will transfer pt to 4th floor. ANIKA HIDALGO DO Nov 12, 2019 06:03
[2019-11-12] MEDS ORDERED: RT-ALBUINH IH (08:55)
[2019-11-12] MEDS ORDERED: MONT10TA21 PO (08:55)
[2019-11-12] MEDS ORDERED: FLUT1DIS26 IH (08:55)
[2019-11-12] MEDS ORDERED: LORA10TA76 PO (08:55)
[2019-11-12] MEDS ORDERED: PRED10TA22 PO (08:55)
--- NOTE | 2019-11-12 08:55 | Discharge Summary ---
Discharge Summary Hospital Course Was the Problem List Reviewed?: Yes Problems/Dx: (1) Status asthmaticus Status: Acute Hospital Course Date of Admission: Nov 11, 2019 at 13:24 Admission Diagnosis : Family Physician/Provider: Gela Mcdaniels MD Date of Discharge: 11/12/19 Discharge Diagnosis: status asthmaticus Hospital Course: Hospital course: Pt had an uneventful hospital course, she was admitted, placed in ICU for status asthmaticus, IV steroids initiated along with nebulizer treatments and replaced Advair with inhaler, she did well, was hoping to go home. Lungs remained clear with only subtle wheeze and she was placed on Singulair, Claritin, resuming her Advair, Proair inhaler and a steroid taper dose. Labs and Pending Lab Test: Laboratory Tests 11/11/19 12:30: White Blood Count 9.6, Red Blood Count 4.52, Hemoglobin 12.2, Hematocrit 37, Mean Corpuscular Volume 81, Mean Corpuscular Hemoglobin 27, Mean Corpuscular Hemoglobin Concent 33, Red Cell Distribution Width 14.6H, Platelet Count 388, Mean Platelet Volume 8.8, Neutrophils (%) (Auto) 62, Lymphocytes (%) (Auto) 24, Monocytes (%) (Auto) 7, Eosinophils (%) (Auto) 6, Basophils (%) (Auto) 1, Neutrophils # (Auto) 6.0, Lymphocytes # (Auto) 2.3, Monocytes # (Auto) 0.7, Eosinophils # (Auto) 0.6H, Basophils # (Auto) 0.1, Sodium Level 141, Potassium Level 3.6, Chloride Level 108H, Carbon Dioxide Level 21, Anion Gap 12, Blood Urea Nitrogen 12, Creatinine 0.71, Estimat Glomerular Filtration Rate > 60, BUN/Creatinine Ratio 17, Glucose Level 103, Calcium Level 9.0, Corrected Calcium 9.0, Total Bilirubin 0.3, Aspartate Amino Transf (AST/SGOT) 17, Alanine Aminotransferase (ALT/SGPT) 15, Alkaline Phosphatase 87, Total Protein 7.1, Albumin 4.0, Serum Test, Qualitative NEGATIVE 11/11/19 13:35: Blood Gas Puncture Site RT RAD, Blood Gas Patient Temperature 36.5, Arterial Blood pH 7.34*L, Arterial Blood Partial Pressure CO2 42, Arterial Blood Partial Pressure O2 70L, Arterial Blood HCO3 22L, Arterial Blood Total CO2 23.2, Arterial Blood Oxygen Saturation 92L, Arterial Blood Base Excess -3.1L, Beau Test YES-POS, Blood Gas Ventilator Setting NO, Blood Gas Inspired Oxygen 21% 11/12/19 03:10: White Blood Count 6.8, Red Blood Count 4.42, Hemoglobin 11.9, Hematocrit 36, Mean Corpuscular Volume 80, Mean Corpuscular Hemoglobin 27, Mean Corpuscular Hemoglobin Concent 34, Red Cell Distribution Width 14.0, Platelet Count 375, Mean Platelet Volume 9.0, Neutrophils (%) (Auto) 90H, Lymphocytes (%) (Auto) 9L, Monocytes (%) (Auto) 1, Eosinophils (%) (Auto) 0, Basophils (%) (Auto) 0, Neutrophils # (Auto) 6.2, Lymphocytes # (Auto) 0.6L, Monocytes # (Auto) 0.1, Eosinophils # (Auto) 0.0, Basophils # (Auto) 0.0, Sodium Level 136, Potassium Level 4.0, Chloride Level 107, Carbon Dioxide Level 23, Anion Gap 6, Blood Urea Nitrogen 9, Creatinine 0.68, Estimat Glomerular Filtration Rate > 60, BUN/Creatinine Ratio 13, Glucose Level 156H, Calcium Level 9.3, Corrected Calcium 9.3, Total Bilirubin 0.3, Aspartate Amino Transf (AST/SGOT) 15, Alanine Aminotransferase (ALT/SGPT) 15, Alkaline Phosphatase 83, Total Protein 7.0, Albumin 4.0, Neutrophils % (Manual) 85, Lymphocytes % (Manual) 10, Monocytes % (Manual) 2, Band Neutrophils 3, Blood Morphology Comment NORMAL, Magnesium Level 2.3 Home Meds Active Prednisone 10 Mg Tab.ds.pk 10 Mg PO DAILY Take 6 tabs(60mg)daily,decrease by 1 tab(10MG)daily. Ferrous Sulfate 325 Mg Tablet 325 Mg PO BID WITH MEALS Proair Hfa (Albuterol Sulfate) 1 Puff Puff 2 Puff IH Q4H PRN 1 PUFF = 90 MCG Reported Ibuprofen 200 Mg Tablet 400-800 Mg PO Q8H Multi For Her Tablet (Mv,Ca,Min/Iron Fum/FA/Vit K) 1 Each Tablet 1 Each PO DAILY Claritin (Loratadine) 10 Mg Tablet 10 Mg PO DAILY Fluoxetine HCl 20 Mg Capsule 20 Mg PO DAILY Pulmicort Flexhaler (Budesonide) 180 Mcg Aer.pow.ba 1 Puff IH BID PRN Albuterol Sulfate 2.5 Mg/3 Ml Vial.neb 2.5 Mg NEB Q4H PRN Assessment/Pt Instructions [facility] this week Discharge Planning: <30 minutes discharge planning Discharge Instructions Discharge Diet: No Restrictions Activity as Tolerated: Yes Discharge Physical Examination Vital Signs Vital Signs Date Time Temp Pulse Resp B/P (MAP) Pulse Ox O2 Delivery O2 Flow Rate FiO2 11/12/19 08:15 92 Room Air 11/12/19 07:49 36.4 11/12/19 07:00 81 13 108/70 (83) 2.00 11/11/19 18:43 50 General Appearance: No Apparent Distress, WD/WN, Chronically ill Respiratory: Normal Breath Sounds, No Accessory Muscle Use, No Respiratory Distress Neurologic/Psychiatric: Alert, Oriented x3 Allergies: Coded Allergies: No Known Drug Allergies (Unverified , 07/11/19) Discharge Summary Date of Admission Nov 11, 2019 at 13:24 Date of Discharge Discharge Date: Nov 12, 2019 Admission Diagnosis Status asthmaticus currently on BiPAP and aggressive pulmonary toilet will monitor overnight in the ICU with eICU Discharge Diagnosis Status asthmaticus DAMARI AMEZCUA DO Nov 12, 2019 08:55
[2019-11-12] MEDS ORDERED: FLUoxetine HCL 20 MG (PROzac) CAP PO SCH (09:00)
[2019-11-12] MEDS ORDERED: LORATADINE (CLARITIN) 10 MG TAB PO SCH (09:00)
[2019-11-12] MEDS: ADVAIR HFA 115/21 MCG INHALER 8 GM IH SCH (09:24)
--- NOTE | 2019-11-12 09:50 | NUR ---
LYRIC MENDEZ demonstrates understanding of discharge instructions and accurately returns instructions upon questioning. Copy of Post-Discharge Instructions and Medication Discharge Instructions given to pt. LYRIC MENDEZ is able to manage continuing needs after discharge. Patients belongings returned to pt. Skin dry and intact; no breakdown noted. Patient discharged from [facility] on 11/12/19 at 0950. LYRIC MENDEZ left floor via wc, accompanied by staff.
[2019-11-12] MEDS ORDERED: predniSONE 10 MG TAB PO SCH (12:00)
--- OUTSIDE RECORDS SUMMARY | 2019-11-15 08:43 | XMS REPORT | Continuity of Care Document ---
Author Organization Unknown Address Unknown Phone Unavailable Allergies Active Description Code Type Severity Reaction Onset Reported/Identified Relationship to Patient Clinical Status Yes No Known Drug Allergies [id number] Drug Allergy Unknown N/A 07/11/2019 Medications There [...] MD, Ot J10. 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 Ot Z3A.36 36 WEEKS GESTATION OF 07/11/2019 [...] NRG STATEMENT OF ADEQUACY: NRG INTERPRETATION/RESULT: NRG DIRECTOR OF MUSIC: NRG INFECTION: NRG COMMENT NRG Arterial blood [...] pa ashu - 07/17/19 11:13 WRISTBAND NUMBER [id number] NRG ABO+Rh group AP NRG Blood group [...] plasma calcium measurement (mass/volume) 8.9 mg/dL 8.5-10.1 Complete blood count (CBC) with automate d white blood cell (WBC) differential - 11/11/19 12:30 Blood leukocytes automated count (number/volume) 9.6 10*3/uL 4.3-11.0 Blood erythrocytes automated count (number/volume) 4.52 10*6/uL 4.35-5.85 Venous blood hemoglobin measurement (mass/volume) 12.2 g/dL 11.5-16.0 Blood hematocrit (volume fraction) 37 % 35-52 Automated erythrocyte mean corpuscular volume 81 [ foz_us] 80-99 Automated erythrocyte mean corpuscular h emoglobin (mass per erythrocyte) 27 pg 25-34 Automated erythrocyte mean corpuscular h emoglobin concentration measurement (mass/volume) 33 g/dL 32-36 Automated erythrocyte distribution width ratio 14. 6 % 10.0- 14.5 Automated blood platelet count (count/volume) 388 10*3/uL 130-400 Automated blood platelet mean volume measurement 8.8 [foz_us] 7.4-10.4 Automated blood neutrophils/100 leukocytes 62 % 42-75 Automated blood lymphocytes/100 leukocytes 24 % 12-44 Blood monocytes/100 leukocytes 7 % 0-12 Automated blood eosinophils/100 leukocytes 6 % 0-10 Automated blood basophils/100 leukocytes 1 % 0-10 Blood neutrophils automated count (number/volume) 6.0 10*3 1.8-7.8 Blood lymphocytes automated count (number/volume) 2.3 10*3 1.0-4.0 Blood monocytes automated count (number/volume) 0. 7 10*3 0.0-1.0 Automated eosinophil count 0.6 10*3/uL 0 .0-0.3 Automated blood basophil count (count/volume) 0.1 10*3/uL 0.0-0.1 Serum or plasma choriogonadotropin (preg kingston test) detection - 11/11/19 12:30 Serum or plasma choriogonadotropin ( test) de tection NEGATIVE NEGATIVE Comprehensive metabolic panel - 11/11/19 12:30 Serum or plasma sodium measurement (moles/volume) 141 mmol/L 135-145 Serum or plasma potassium measurement (moles/volume) 3.6 mmol/L 3.6-5.0 Serum or plasma chloride measurement (moles/volume) 108 mmol/L 98-107 Carbon dioxide 21 mmol/L 21-32 Serum or plasma anion gap determination (moles/volume) 12 mmol/L 5-14 Serum or plasma urea nitrogen measurement (mass/volume ) 12 mg/dL 7-18 Serum or plasma creatinine measurement (mass/volume) 0.71 mg/dL 0.60-1.30 Serum or plasma urea nitrogen/creatinine mass ratio 17 NRG Serum or plasma creatinine measurement w ith calculation of estimated glomerular filtration rate > NRG Serum or plasma glucose measurement (mass/volume) 103 mg/dL 70-105 Serum or plasma calcium measurement (mass/volume) 9.0 mg/dL 8.5-10.1 Serum or plasma total bilirubin measurement (mass/volu me) 0.3 mg/dL 0.1-1.0 Serum or plasma alkaline phosphatase jacob surement (enzymatic activity/volume) 87 U/L 40-136 Serum or plasma aspartate aminotransfera se measurement (enzymatic activity/volume) 17 U/L 5-34 Serum or plasma alanine aminotransferase measurement (enzymatic activity/volume) 15 U/L 0-55 Serum or plasma protein measurement (mass/volume) 7.1 g/dL 6.4-8.2 Serum or plasma albumin measurement (mass/volume) 4.0 g/dL 3.2-4.5 CALCIUM CORRECTED 9.0 mg/dL 8.5-10.1 Arterial blood gas measurement - 0 13:35 Blood pCO2 42 mm[Hg] 35-45 Blood pO2 70 mm[Hg] 79-93 Arterial blood bicarbonate measurement (moles/volume) 22 mmol/L 23-27 Arterial blood base excess by calculation -3.1 mmo l/L -2.5-2.5 Arterial blood oxygen saturation measurement 92 % 94-100 * Inhaled oxygen flow rate 21% NRG Arterial blood pH measurement with patient temperature correction 7.34 7.37-7.43 Arterial blood carbon dioxide, total measurement (mole s/volume) 23.2 mmol/L 21.0-31.0 Body site RT RAD NRG Assessment of wrist artery patency prior to arterial p uncture YES-POS NRG Setting of ventilation mode NO NR G Measurement of body temperature 36.5 NRG Methicillin resistant Staphylococcus aur eus (MRSA) screening culture - 11/11/19 14:58 Methicillin resistant Staphylococcus aureus (MRSA) scr eening culture NEG NRG Complete blood count (CBC) with automate d white blood cell (WBC) differential - 11/12/19 03:10 Blood leukocytes automated count (number/volume) 6.8 10*3/uL 4.3-11.0 Blood erythrocytes automated count (number/volume) 4.42 10*6/uL 4.35-5.85 Venous blood hemoglobin measurement (mass/volume) 11.9 g/dL 11.5-16.0 Blood hematocrit (volume fraction) 36 % 35-52 Automated erythrocyte mean corpuscular volume 80 [ foz_us] 80-99 Automated erythrocyte mean corpuscular h emoglobin (mass per erythrocyte) 27 pg 25-34 Automated erythrocyte mean corpuscular h emoglobin concentration measurement (mass/volume) 34 g/dL 32-36 Automated erythrocyte distribution width ratio 14. 0 % 10.0- 14.5 Automated blood platelet count (count/volume) 375 10*3/uL 130-400 Automated blood platelet mean volume measurement 9.0 [foz_us] 7.4-10.4 Automated blood neutrophils/100 leukocytes 90 % 42-75 Automated blood lymphocytes/100 leukocytes 9 % 12-44 Blood monocytes/100 leukocytes 1 % 0-12 Automated blood eosinophils/100 leukocytes 0 % 0-10 Automated blood basophils/100 leukocytes 0 % 0-10 Blood neutrophils automated count (number/volume) 6.2 10*3 1.8-7.8 Blood lymphocytes automated count (number/volume) 0.6 10*3 1.0-4.0 Blood monocytes automated count (number/volume) 0. 1 10*3 0.0-1.0 Automated eosinophil count 0.0 10*3/uL 0 .0-0.3 Automated blood basophil count (count/volume) 0.0 10*3/uL 0.0-0.1 Comprehensive metabolic panel - 11/12/19 03:10 Serum or plasma sodium measurement (moles/volume) 136 mmol/L 135-145 Serum or plasma potassium measurement (moles/volume) 4.0 mmol/L 3.6-5.0 Serum or plasma chloride measurement (moles/volume) 107 mmol/L 98-107 Carbon dioxide 23 mmol/L 21-32 Serum or plasma anion gap determination (moles/volume) 6 mmol/L 5-14 Serum or plasma urea nitrogen measurement (mass/volume ) 9 mg/dL 7-18 Serum or plasma creatinine measurement (mass/volume) 0.68 mg/dL 0.60-1.30 Serum or plasma urea nitrogen/creatinine mass ratio 13 NRG Serum or plasma creatinine measurement w ith calculation of estimated glomerular filtration rate > NRG Serum or plasma glucose measurement (mass/volume) 156 mg/dL 70-105 Serum or plasma calcium measurement (mass/volume) 9.3 mg/dL 8.5-10.1 Serum or plasma total bilirubin measurement (mass/volu me) 0.3 mg/dL 0.1-1.0 Serum or plasma alkaline phosphatase jacob surement (enzymatic activity/volume) 83 U/L 40-136 Serum or plasma aspartate aminotransfera se measurement (enzymatic activity/volume) 15 U/L 5-34 Serum or plasma alanine aminotransferase measurement (enzymatic activity/volume) 15 U/L 0-55 Serum or plasma protein measurement (mass/volume) 7.0 g/dL 6.4-8.2 Serum or plasma albumin measurement (mass/volume) 4.0 g/dL 3.2-4.5 CALCIUM CORRECTED 9.3 mg/dL 8.5-10.1 Manual absolute plasma cell count - 11/02 03:10 Blood monocytes/100 leukocytes 2 % NRG Manual blood segmented neutrophils/100 leukocytes 85 % NRG Blood band neutrophils/100 leukocytes 3 % NRG Manual blood lymphocytes/100 leukocytes 10 % NRG Blood erythrocyte morphology finding identification NORMAL NRG Magnesium - 11/12/19 03:10 Magnesium 2.3 mg/dL 1.6-2.4 Encounters ACCT No. Visit Date/Time Discharge Status Pt. Type Provider Facility Loc./Unit Complaint [id number] 12/25/2015 16:55:02 12/25/2015 23:59: 59 CLS Outpatient Jose Manuel Pace [id number] 12/01/2015 16:37:10 12/01/2015 23:59: 59 CLS Outpatient Jose Manuel Pace [id number] 10/18/2015 14:41:33 10/18/2015 23:59: 59 CLS Outpatient Mervat Dumont [id number] 05/29/2015 20:52:56 05/29/2015 23:59: 59 CLS Outpatient Carmen Jeff [id number] 05/26/2015 17:39:30 05/26/2015 23:59: 59 CLS Outpatient Carmen Jeff [id number] 05/14/2015 14:45:27 05/14/2015 23:59: 59 CLS Outpatient Carmen Jeff [id number] 04/05/2015 20:41:16 04/05/2015 23:59: 59 CLS Outpatient Mervat Dumont [id number] 11/11/2019 13:24:00 09:50:00 DIS Inpatient MEE BARILLAS, JATINDER Escobar [facility] ICU STATUS ASTHMATI CUS [id number] 08/21/2019 01:33:00 13:12:00 DIS Outpatient DAMARI AMEZCUA DO [facility] 4TH STATUS ASTHMA [id number] 07/17/2019 09:50:00 12:50:00 DIS Inpatient ABI CANTOR DO [facility] WS PREVIOUS [id number] 07/11/2019 10:15:00 10:53:00 DIS Outpatient ABI CANTOR DO [facility] PREOP PREVIOUS [id number] 06/26/2019 12:52:00 23:59:59 CLS Outpatient ABHISHEK GARCIA APRN [facility] LAB [id number] 05/02/2019 14:40:00 10:07:00 DIS Outpatient MAIN BARILLAS, DUANE Hameed [facility] 4TH INFLUENZA A;7 MONTH GESTATION;SEPSIS;ASTHMA EXACER [id number] 04/13/2019 14:15:00 020 13:45:00 DIS Inpatient RO SELLERS MD [facility] 4TH ASTHMA W EXACERBATION, HX OF PREG,HYPOXIC [id number] 04/09/2019 19:41:00 020 20:18:00 DIS Outpatient KRYS PRIDE APRN [facility] ER DENTAL PAIN/6 MO PREG [id number] 10/16/2018 14:00:00 019 15:10:00 DIS Emergency KRYS PRIDE APRN [facility] ER EYE SWELLING [id number] 09/13/2019 13:00:00 09/13/2019 23:59:5 9 CLS Outpatient KENNY CABRERA [facility] [id number] 06/28/2019 12:20:00 Document Registration [id number] 06/26/2019 11:40:00 Document Registration [id number] 06/12/2019 11:40:00 Document Registration [id number] 04/17/2019 15:40:00 Document Registration [id number] 12/20/2018 13:20:00 Document Registration [id number] 09/12/2017 11:20:00 Document Registration [id number] 08/15/2015 10:55:09 08/14 10:55:09 DIS Outpatient [id number] 08/15/2015 10:54:48 08/14 10:54:48 DIS Outpatient [id number] 07/05/2013 16:54:00 07/05 16:54:00 DIS Outpatient [id number] 06/22/2013 09:33:18 06/22 09:33:18 Outpatient [id number] 06/22/2013 09:06:52 06/22 09:06:52 Outpatient
== END 2019-11-12 08:53 | disposition home or self-care (01) ==
LOC: EDUNIT# 12:29 → ER 12:30 → UNDOADMIN 13:24 → ICU 13:24 → UNDODISIN 11-12 09:50
PROVIDERS: ADMIT Internal Medicine; ATTEND Internal Medicine
DX: J45.902 Unspecified asthma with status asthmaticus (principal); K21.9 Gastro-esophageal reflux disease without esophagitis; F41.9 Anxiety disorder, unspecified; F29 Unspecified psychosis not due to a substance or known physiological condition; Z79.51 Long term (current) use of inhaled steroids; Z87.891 Personal history of nicotine dependence; Z83.3 Family history of diabetes mellitus; Z80.9 Family history of malignant neoplasm, unspecified
CPT/HCPCS: 71045; 80053 ×2; 82805; 83735; 84703; 85007; 85025; 85027; 87081; 94640 ×5; 94644; 94660; 94664; 96374; 96375; 99291; G0378; 36415

== ENCOUNTER 2020-02-03 14:53 | Emergency (ER) | payer MEDICAID ==
[~2020-02-03 14:53] MED LIST changes: +ACHD5005 PO; +FLUT1DIS26 IH; -HYDR-3812 PO; +MONT10TA21 PO
== END 2020-02-03 14:59 | disposition left against medical advice (07) ==
LOC: EDUNIT# 14:53 → ER 14:54
DX: J45.909 Unspecified asthma, uncomplicated (principal); F41.0 Panic disorder [episodic paroxysmal anxiety]

== ENCOUNTER 2020-04-16 14:48 | Inpatient (IN) | payer MEDICAID ==
[~2020-04-16] VITALS: Ht 170 cm; Wt 79.7 kg
[~2020-04-16 14:48] MED LIST changes: -CLIN300C11 PO; +CLIN300C12 PO
[2020-04-16] MEDS ORDERED: RT-ALBUTEROL/IPRATROPIUM 3 ML (DUONEB) VIAL ONE (14:52)
[2020-04-16] MEDS ORDERED: methylPREDNISolone 125 MG (Solu-MEDROL) VIAL IV STA (14:55)
[2020-04-16] MEDS ORDERED: RT-ALBUTEROL/IPRATROPIUM 3 ML (DUONEB) VIAL INH ONE ×2 (15:00→15:15)
--- NOTE | 2020-04-16 15:03 | ED Respiratory ---
General Chief Complaint: Respiratory Problems Stated Complaint: ASTHMA ATTACK Source: patient Exam Limitations: no limitations History of Present Illness Date Seen by Provider: Apr 16, 2020 Time Seen by Provider: 14:48 Initial Comments Patient presents to the ER by private conveyance with chief complaint that this morning she woke up having some wheezing and tightness in her chest and shortness of breath. She has a history of severe asthma on Advair and albut jules. She has not been using her albuterol lately because she has not needed it until today. She denies any fevers chills cough shortness of breath loss of sense of taste or smell, nausea vomiting diarrhea or sick contacts. No productive cough. No recent steroids. Allergies and Home Medications Allergies Coded Allergies: No Known Drug Allergies (Unverified , 07/11/19) Home Medications Albuterol Sulfate 2.5 Mg/3 Ml Vial.neb, 2.5 MG NEB Q4H PRN for SHORTNESS OF BREATH, (Reported) Albuterol Sulfate 1 Puff Puff, 2 PUFF IH Q4H PRN for WHEEZING 1 PUFF = 90 MCG Prescribed by: DAMARI AMEZCUA on 11/12/19854 Fluoxetine HCl 20 Mg Capsule, 20 MG PO DAILY, (Reported) Fluticasone/Salmeterol 1 Each Blst.w.dev, 1 EACH IH BID Prescribed by: DAMARI AMEZCUA on 11/12/19854 Ibuprofen 200 Mg Tablet, 400-800 MG PO Q8H, (Reported) Loratadine 10 Mg Tablet, 10 MG PO DAILY Prescribed by: DAMARI AMEZCUA on 11/12/19854 Montelukast Sodium 10 Mg Tablet, 10 MG PO DAILY Prescribed by: DAMARI AMEZCUA on 11/12/19854 Mv,Ca,Min/Iron Fum/FA/Vit K 1 Each Tablet, 1 EACH PO DAILY, (Reported) Prednisone 10 Mg Tab.ds.pk, 10 MG PO DAILY Take 6 tabs(60mg)daily,decrease by 1 tab(10MG)daily. Prescribed by: DAMARI AMEZCUA on 11/12/19854 Patient Home Medication List Home Medication List Reviewed: Yes Review of Systems Review of Systems Constitutional: No chills, No fever, No malaise, No weakness EENTM: No ear discharge, No ear pain Respiratory: cough; No phlegm; short of breath, wheezing Cardiovascular: No chest pain, No palpitations Gastrointestinal: No abdominal pain, No nausea, No vomiting Genitourinary: No discharge, No dysuria Musculoskeletal: No back pain, No joint pain All Other Systems Reviewed Negative Unless Noted: Yes Past Kfdyroo-Enfouo-Xnykon Hx Patient Social History Alcohol Use: Denies Use Number of Drinks Today: AA Alcohol Beverage of Choice: Beer Drug of Choice: Meth history/Opiod history Smoking Status: Former Smoker Former Smoker, Quit: Jul 10, 2016 2nd Hand Smoke Exposure: No Recent Hopitalizations: No Immunizations Up To Date Tetanus Booster (TDap): Unknown PED Vaccines UTD: Yes Date of Pneumonia Vaccine: Jul 18, 2019 Date of Influenza Vaccine: Jan 02, 2019 Seasonal Allergies Seasonal Allergies: No Past Medical History Surgeries: Yes Section Respiratory: Yes Asthma Cardiac: No Neurological: Yes Reproductive Disorders: Yes Female Reproductive Disorders: Denies Sexually Transmitted Disease: No HIV/AIDS: No Genitourinary: No Gastrointestinal: Yes (DURING ) Gastroesophageal Reflux, Chronic Constipation Musculoskeletal: No Endocrine: No HEENT: No (GLASSES) Loss of Vision: Denies Hearing Impairment: Denies Cancer: No Psychosocial: Yes Anxiety, Depression Integumentary: No Blood Disorders: No (ANEMIA) Adverse Reaction/Blood Tranf: No (N/A) Family Medical History Diabetes mellitus Grandparents (Maternal Grandmother) Drug abuse 19 MOTHER G8 SISTER (Recovering Heroin Addict THC) FH: ovarian cancer 19 MOTHER Grandparents (Maternal Grandmother) Fibrocystic disease of breast 19 MOTHER Grandparents (Paternal Grandmother) Psychosocial problem 19 MOTHER (Bipolar) Cancer, Diabetes Physical Exam Vital Signs - First Documented 04/16/20 14:50 Temp 36.2 Pulse 112 Resp 26 B/P (MAP) 146/83 (104) Pulse Ox 93 O2 Delivery Room Air Capillary Refill : Height: 5'7.00" Weight: 170lbs. oz. 77.119543ja; 26.00 BMI Method:Stated General Appearance: WD/WN, mild distress HEENT: PERRL/EOMI, pharynx normal Neck: full range of motion, normal inspection Respiratory: respiratory distress, accessory muscle use; No rales; wheezing, expiration (prolonged) Cardiovascular: normal peripheral pulses, regular rate, rhythm Gastrointestinal: normal bowel sounds, non tender, soft Neurologic/Psychiatric: alert, oriented x 3 Skin: normal color, warm/dry Progress/Results/Core Measures Suspected Sepsis SIRS Temperature: Pulse: Respiratory Rate: Laboratory Tests 04/16/20 14:57: White Blood Count 11.8H Blood Pressure / Mean: Laboratory Tests 04/16/20 14:57: Creatinine 0.74, Platelet Count 433H, Total Bilirubin 0.3 Results/Orders Lab Results Laboratory Tests Test 04/16/20 14:57 04/16/20 15:01 Range/Units White Blood Count 11.8 H 4.3-11.0 10^3/uL Red Blood Count 4.78 3.80-5.11 10^6/uL Hemoglobin 13.9 11.5-16.0 g/dL Hematocrit 41 35-52 % Mean Corpuscular Volume 86 80-99 fL Mean Corpuscular Hemoglobin 29 25-34 pg Mean Corpuscular Hemoglobin Concent 34 32-36 g/dL Red Cell Distribution Width 14.3 10.0-14.5 % Platelet Count 433 H 130-400 10^3/uL Mean Platelet Volume 9.0 9.0-12.2 fL Immature Granulocyte % (Auto) 0 % Neutrophils (%) (Auto) 42 42-75 % Lymphocytes (%) (Auto) 42 12-44 % Monocytes (%) (Auto) 7 0-12 % Eosinophils (%) (Auto) 9 0-10 % Basophils (%) (Auto) 1 0-10 % Neutrophils # (Auto) 5.0 1.8-7.8 10^3/uL Lymphocytes # (Auto) 4.9 H 1.0-4.0 10^3/uL Monocytes # (Auto) 0.8 0.0-1.0 10^3/uL Eosinophils # (Auto) 1.0 H 0.0-0.3 10^3/uL Basophils # (Auto) 0.1 0.0-0.1 10^3/uL Immature Granulocyte # (Auto) 0.0 0.0-0.1 10^3/uL Sodium Level 139 135-145 MMOL/L Potassium Level 3.7 3.6-5.0 MMOL/L Chloride Level 103 98-107 MMOL/L Carbon Dioxide Level 26 21-32 MMOL/L Anion Gap 10 5-14 MMOL/L Blood Urea Nitrogen 17 7-18 MG/DL Creatinine 0.74 0.60-1.30 MG/DL Estimat Glomerular Filtration Rate > 60 BUN/Creatinine Ratio 23 Glucose Level 105 70-105 MG/DL Calcium Level 9.4 8.5-10.1 MG/DL Corrected Calcium 9.0 8.5-10.1 MG/DL Magnesium Level 2.4 1.6-2.4 MG/DL Total Bilirubin 0.3 0.1-1.0 MG/DL Aspartate Amino Transf (AST/SGOT) 19 5-34 U/L Alanine Aminotransferase (ALT/SGPT) 18 0-55 U/L Alkaline Phosphatase 106 40-136 U/L C-Reactive Protein High Sensitivity 0.20 0.00-0.50 MG/DL Total Protein 7.7 6.4-8.2 GM/DL Albumin 4.5 3.2-4.5 GM/DL Procalcitonin 0.02 <0.10 NG/ML Blood Gas Puncture Site LEFT RAD Blood Gas Patient Temperature 36.2 Arterial Blood pH 7.36 L 7.37-7.43 Arterial Blood Partial Pressure CO2 42 35-45 MMHG Arterial Blood Partial Pressure O2 163 H 79-93 MMHG Arterial Blood HCO3 23 23-27 MMOL/L Arterial Blood Total CO2 24.4 21.0-31.0 MMOL/L Arterial Blood Oxygen Saturation 100 94-100 % Arterial Blood Base Excess -1.8 -2.5-2.5 MMOL/L Beau Test YES-POS Blood Gas Ventilator Setting NO Blood Gas Inspired Oxygen ROOM AIR My Orders Orders - LISSETTE DA SILVA Albuterol/Ipra Inhalation Soln (Duoneb I (04/16/20 14:52) Albuterol/Ipra Inhalation Soln (Duoneb I (04/16/20 15:00) Methylprednisolone Sod Succ (Solu-Medrol (04/16/20 14:55) Chest 1 View, Ap/Pa Only (04/16/20 14:55) Svn Small Volume Nebulizer (04/16/20 14:55) Cbc With Automated Diff (04/16/20 14:55) Comprehensive Metabolic Panel (04/16/20 14:55) Hs C Reactive Protein (04/16/20 14:55) Procalcitonin (Pct) (04/16/20 14:55) Magnesium (04/16/20 14:58) Arterial Blood Gas (04/16/20 15:01) Albuterol Pre-Mix Nebs (Rt) (Proventil (04/16/20 15:05) Albuterol/Ipra Inhalation Soln (Duoneb I (04/16/20 15:15) Magnesium 1 Gm/100 Ml Ivpb (Magnesium Bryant (04/16/20 15:15) Lorazepam Injection (Ativan Injection) (04/16/20 15:15) Lorazepam Injection (Ativan Injection) (04/16/20 15:11) Hcg,Qualitative Serum (04/16/20 16:09) Medications Given in ED Current Medications Medications Dose Ordered Sig/Kay Route Start Time Stop Time Status Last Admin Dose Admin Albuterol/ Ipratropium 3 ml ONCE ONCE INH 04/16/20 15:00 04/16/20 15:01 DC 04/16/20 14:57 3 ML Lorazepam 1 mg ONCE ONCE IVP 04/16/20 15:15 04/16/20 15:16 DC 04/16/20 15:21 1 MG Vital Signs/I&O 04/16/20 04/16/20 14:50 15:15 Temp 36.2 Pulse 112 Resp 26 B/P (MAP) 146/83 (104) Pulse Ox 93 94 O2 Delivery Room Air Room Air Capillary Refill : Progress Note : Time: 15:03 Progress Note We will start with a DuoNeb, steroids chest x-ray and basic labs. In the past she has needed magnesium to help maintain her asthma. No evidence of infection. She is not a PUI for Covid. Diagnostic Imaging Diagonstic Imaging: Xray Plain Films/CT/US/NM/MRI: chest Reviewed: Reviewed by Me Departure Communication (Admissions) Time/Spoke to Admitting Phy: 16:10 Discussed the case with Dr. Amezcua and she agrees to admit the patient to the ICU with consultation to pulmonology. Time/Spoke to Consulting Phy: 16:15 Discussed the case with Dr. Gentile and he agrees to consult for pulmonology. Impression Primary Impression: Acute asthma exacerbation Qualified Codes: J45.901 - Unspecified asthma with (acute) exacerbation Additional Impression: Acute respiratory failure with hypoxia Disposition: ADMITTED INPATIENT Condition: Stable Admissions Decision to Admit Reason: Admit from ER (General) Decision to Admit/Date: Apr 16, 2020 Time/Decision to Admit Time: 15:57 Departure-Patient Inst. Referrals: [facility] (PCP/Family) Primary Care Physician LISSETTE DA SILVA Apr 16, 2020 15:03
[2020-04-16 15:05] LABS: BASOPHILS # (AUTO) 0.1 10^3/uL (0.0-0.1); BASOPHILS % (AUTO) 1 % (0-10); EOSINOPHILS % (AUTO) 9 % (0-10); HEMATOCRIT 41 % (35-52); HEMOGLOBIN 13.9 g/dL (11.5-16.0); LYMPHOCYTES # (AUTO) 4.9 10^3/uL (1.0-4.0); LYMPHOCYTES % (AUTO) 42 % (12-44); MEAN CORPUSCULAR HEMOGLOBIN 29 pg (25-34); MEAN CORPUSCULAR HGB CONC 34 g/dL (32-36); MEAN CORPUSCULAR VOLUME 86 fL (80-99); MONOCYTES # (AUTO) 0.8 10^3/uL (0.0-1.0); MONOCYTES % (AUTO) 7 % (0-12); NEUTROPHILS % (AUTO) 42 % (42-75); PLATELET COUNT 433 10^3/uL (130-400); WHITE BLOOD COUNT 11.8 10^3/uL (4.3-11.0)
[2020-04-16] MEDS ORDERED: RT-ALBUTEROL SULF 2.5 MG/3 ML PRE-MIX VIAL INH STA (15:05)
[2020-04-16 15:07] LABS: ABG BASE EXCESS -1.8 MMOL/L (-2.5-2.5); ABG OXYGEN SATURATION 100 % (94-100); ABG PCO2 42 MMHG (35-45); ABG PH 7.36 (7.37-7.43); ABG PO2 163 MMHG (79-93); ABG TCO2 24.4 MMOL/L (21.0-31.0); ALLENS TEST YES-POS; INSPIRED O2 ROOM AIR; PATIENT TEMP 36.2; VENTILATOR NO
[2020-04-16] MEDS ORDERED: LORazepam INJ 2 MG/ML (ATIVAN) VIAL ONE (15:11)
[2020-04-16] MEDS ORDERED: MAGNESIUM 1 GM/100 ML IVPB 100 ML IV ONE (15:15)
[2020-04-16] MEDS ORDERED: LORazepam INJ 2 MG/ML (ATIVAN) VIAL IVP ONE (15:15)
[2020-04-16 15:16] LABS: ALBUMIN 4.5 GM/DL (3.2-4.5); CHLORIDE 103 MMOL/L (98-107); POTASSIUM 3.7 MMOL/L (3.6-5.0); SODIUM 139 MMOL/L (135-145)
[2020-04-16 15:17] LABS: CALCIUM 9.4 MG/DL (8.5-10.1)
[2020-04-16 15:18] LABS: GLUCOSE 105 MG/DL (70-105)
[2020-04-16 15:19] LABS: TOTAL PROTEIN 7.7 GM/DL (6.4-8.2)
[2020-04-16 15:20] LABS: BILIRUBIN,TOTAL 0.3 MG/DL (0.1-1.0); CARBON DIOXIDE 26 MMOL/L (21-32)
[2020-04-16 15:22] LABS: ALKALINE PHOSPHATASE 106 U/L (40-136); CREATININE SERUM 0.74 MG/DL (0.60-1.30); GFR ESTIMATED > 60
[2020-04-16 15:23] LABS: BUN/CREATININE RATIO 23
[2020-04-16 15:25] LABS: ALANINE AMINOTRANSFERASE 18 U/L (0-55); MAGNESIUM 2.4 MG/DL (1.6-2.4)
--- NOTE | 2020-04-16 15:27 | Diagnostic Imaging Report ---
EXAM: CHEST 1 VIEW, AP/PA ONLY INDICATION: Shortness of air. COMPARISON: Chest radiograph from 11/11/2019. FINDINGS: Normal heart size and central pulmonary vascularity. No focal pulmonary opacity, pleural effusion, or pneumothorax. No acute osseous findings. No significant change. IMPRESSION: Negative chest. Dictated by: Dictated on workstation # [id number]
--- NOTE | 2020-04-16 15:49 | NUR ---
PRISCILA CALLED UPDATE GIVEN WITH OK FROM PATIENT
[2020-04-16] MEDS ORDERED: RT-ALBUTEROL/IPRATROPIUM 3 ML (DUONEB) VIAL IH PRN (17:15)
[2020-04-16] MEDS ORDERED: ACETAMINOPHEN 500 MG TAB (TYLENOL) PO PRN ×2 (17:15→20:45)
[2020-04-16] MEDS ORDERED: LORazepam INJ 2 MG/ML (ATIVAN) VIAL IV PRN (17:15)
[2020-04-16] MEDS ORDERED: CATHETER FLUSH 10 ML SYR IV PRN (17:15)
--- NOTE | 2020-04-16 18:05 | History & Physical-Hospitalist ---
History of Present Illness HPI/Chief Complaint CC: Status asthmaticus HPI: This is a 30yoWF clinic patient of [facility] who has severe asthma who presents to the ER with wheezing and dyspnea in need of IV steroids and close monitoring for resp failure.Compliance with ADvair has made a great difference in the past. Source: patient Exam Limitations: no limitations Date Seen 04/16/20 Time Seen by a Provider: 18:00 Attending Physician Kirsten Carrera DO [facility] Referring Physician Date of Admission Apr 16, 2020 at 16:15 Home Medications & Allergies Home Medications Reviewed patient Home Medication Reconciliation performed by pharmacy medication reconciliations electronic lab technician and/or nursing. Patients Allergies have been reviewed. Allergies Allergies Coded Allergies No Known Drug Allergies (Unverified07/11/19) Past Maueqgu-Jsgzfp-Khrjub Hx Past Med/Social Hx: Reviewed Nursing Past Med/Soc Hx, Reviewed and Corrections made Patient Social History Marrital Status: single Employed/Student: unemployed Alcohol Use: Denies Use Alcohol Beverage of Choice: Beer Recreational Drug Use: No Drug of Choice: Meth history/Opiod history Smoking Status: Never a Smoker Former Smoker, Quit: Jul 10, 2016 2nd Hand Smoke Exposure: No Recent Foreign Travel: No Contact w/other who traveled: No Recent Hopitalizations: No Recent Infectious Disease Expo: No Immunizations Up To Date Tetanus Booster (TDap): Unknown Pediatric: Yes Date of Pneumonia Vaccine: Jul 18, 2019 Date of Influenza Vaccine: Jan 21, 2021 Seasonal Allergies Seasonal Allergies: No Past Medical History Surgeries: Section Respiratory: Asthma Reproductive: Yes Sexually Transmitted Disease: No HIV/AIDS: No Female Reproductive Disorders: Denies Gastrointestinal: Gastroesophageal Reflux, Chronic Constipation Loss of Vision: Denies Hearing Impairment: Denies Psychosocial: Anxiety, Depression History of Blood Disorders: No (ANEMIA) Adverse Reaction to Blood Gaines: No (N/A) Family History Diabetes mellitus Grandparents (Maternal Grandmother) Drug abuse 19 MOTHER G8 SISTER (Recovering Heroin Addict THC) FH: ovarian cancer 19 MOTHER Grandparents (Maternal Grandmother) Fibrocystic disease of breast 19 MOTHER Grandparents (Paternal Grandmother) Psychosocial problem 19 MOTHER (Bipolar) Cancer, Diabetes Review of Systems Constitutional: see HPI Respiratory: dyspnea on exertion, wheezing Physical Exam Physical Exam Vital Signs Vital Signs - First Documented 04/16/20 04/16/20 14:50 16:46 Temp 36.2 Pulse 112 Resp 26 B/P (MAP) 146/83 (104) Pulse Ox 93 O2 Delivery Room Air O2 Flow Rate 2.00 Capillary Refill : Less Than 3 Seconds Height, Weight, BMI Height: 5'7.00" Weight: 170lbs. oz. 77.011849wl; 27.57 BMI Method:Stated General Appearance: No Apparent Distress, Anxious Eyes: Right Eye Normal Inspection, Right Eye PERRL HEENT: PERRL/EOMI, TMs Normal, Normal ENT Inspection, Pharynx Normal, Moist Mucous Membranes Neck: Full Range of Motion, Normal Inspection, Non Tender Respiratory: Chest Non Tender, No Accessory Muscle Use, No Respiratory Dis tress, Decreased Breath Sounds, Rales, Wheezing Cardiovascular: Regular Rate, Rhythm, No Edema, No Gallop, No JVD, No Murmur, Normal Peripheral Pulses Gastrointestinal: Normal Bowel Sounds, No Organomegaly, No Pulsatile Mass, Non Tender, Soft Back: Normal Inspection, No CVA Tenderness, No Vertebral Tenderness Extremity: Normal Capillary Refill, Normal Inspection, Normal Range of Motion, Non Tender, No Calf Tenderness, No Pedal Edema Neurologic/Psychiatric: Alert, Oriented x3, No Motor/Sensory Deficits, Normal Mood/Affect Skin: Normal Color, Warm/Dry Lymphatic: No Adenopathy Results Results/Procedures Labs Laboratory Tests 04/16/20 14:57 04/17/20 03:02 Patient resulted labs reviewed. Assessment/Plan Admission Diagnosis Assessment: Status asthmaticus Plan: ICU monitoring Admission Status: Inpatient Order (span 2 midnights) Reason for Inpatient Admission: status asthmaticus Diagnosis/Problems Diagnosis/Problems (1) Acute respiratory failure with hypoxia Status: Acute (2) Acute asthma exacerbation Status: Acute Qualifiers: Asthma severity: unspecified severity Asthma persistence: persistent Qualified Codes: J45.901 - Unspecified asthma with (acute) exacerbation KIRSTEN CARRERA DO Apr 16, 2020 18:05
[2020-04-16] MEDS: methylPREDNISolone 125 MG (Solu-MEDROL) VIAL IV SCH (20:23)
[2020-04-16] MEDS: CATHETER FLUSH 10 ML SYR IV SCH (20:24)
[2020-04-16] MEDS ORDERED: LOPERAMIDE 2 MG (IMODIUM) TABLET PO PRN (20:45)
[2020-04-16] MEDS ORDERED: guaiFENesin/CODEINE (ROBITUSSIN AC) 10ML UDC PO PRN (20:45)
[2020-04-16] MEDS ORDERED: DOCUSATE SODIUM 100 MG (COLACE) CAP PO PRN (20:45)
[2020-04-16] MEDS ORDERED: HYDROcodone/APAP 5 MG/325 MG (LORTAB) TAB PO PRN (20:45)
[2020-04-16] MEDS ORDERED: diphenhydrAMINE 25 MG TAB (BENADRYL) PO PRN (20:45)
[2020-04-16] MEDS ORDERED: ONDANSETRON 4 MG/2 ML (SDV) Z0FRAN IVP PRN (20:45)
[2020-04-16] MEDS ORDERED: ALPRAZolam 0.25 MG (XANAX) TAB PO PRN (20:45)
[2020-04-16] MEDS ORDERED: ENOXAPARIN 40 MG/0.4 ML (LOVENOX) SYR SC SCH (20:45)
[2020-04-16] MEDS ORDERED: CALCIUM CARBONATE 500 MG (TUMS) TAB.CHEW PO PRN (20:45)
[2020-04-16] MEDS ORDERED: MELATONIN 3 MG TABLET PO PRN (20:45)
[2020-04-16] MEDS: SENNA W/DOCUSATE (SENOKOT S) TABLET PO SCH (20:48)
[2020-04-16] MEDS ORDERED: RT-ALBUTEROL/IPRATROPIUM 3 ML (DUONEB) VIAL IH SCH (21:00)
[2020-04-16] MEDS: ONDANSETRON 4 MG/2 ML (SDV) Z0FRAN IV PRN (21:41)
[2020-04-17] MEDS: methylPREDNISolone 125 MG (Solu-MEDROL) VIAL IV SCH ×2 (03:00→08:01)
[2020-04-17 03:27] LABS: BASOPHILS % (AUTO) 0 % (0-10); EOSINOPHILS % (AUTO) 0 % (0-10); HEMATOCRIT 37 % (35-52); HEMOGLOBIN 12.7 g/dL (11.5-16.0); LYMPHOCYTES % (AUTO) 7 % (12-44); MEAN CORPUSCULAR HEMOGLOBIN 29 pg (25-34); MEAN CORPUSCULAR HGB CONC 35 g/dL (32-36); MEAN CORPUSCULAR VOLUME 84 fL (80-99); MEAN PLATELET VOLUME 9.4 fL (9.0-12.2); MONOCYTES # (AUTO) 0.1 10^3/uL (0.0-1.0); MONOCYTES % (AUTO) 1 % (0-12); NEUTROPHILS # (AUTO) 13.4 10^3/uL (1.8-7.8); NEUTROPHILS % (AUTO) 91 % (42-75); PLATELET COUNT 400 10^3/uL (130-400); WHITE BLOOD COUNT 14.7 10^3/uL (4.3-11.0)
[2020-04-17 03:39] LABS: CHLORIDE 103 MMOL/L (98-107); POTASSIUM 4.4 MMOL/L (3.6-5.0); SODIUM 135 MMOL/L (135-145)
[2020-04-17 03:40] LABS: CALCIUM 9.3 MG/DL (8.5-10.1); GLUCOSE 169 MG/DL (70-105)
[2020-04-17 03:42] LABS: CARBON DIOXIDE 19 MMOL/L (21-32)
[2020-04-17 03:44] LABS: CREATININE SERUM 0.78 MG/DL (0.60-1.30); GFR ESTIMATED > 60; PHOSPHORUS 3.6 MG/DL (2.3-4.7)
[2020-04-17 03:45] LABS: BAND NEUTROPHILS 4 %; BUN/CREATININE RATIO 19; LYMPHOCYTES % (MANUAL) 7 %; MONOCYTES % (MANUAL) 1 %; NEUTROPHILS % (MANUAL) 88 %; STOMATOCYTES SLIGHT
[2020-04-17 03:47] LABS: MAGNESIUM 2.2 MG/DL (1.6-2.4)
--- NOTE | 2020-04-17 04:36 | Pulmonary Consultation ---
History of Present Illness History of Present Illness Date Seen by Provider: Apr 17, 2020 Time Seen by Provider: 04:32 Date of Admission Allergies and Home Medications Allergies Coded Allergies: No Known Drug Allergies (Unverified , 07/11/19) Home Medications Albuterol Sulfate 2.5 Mg/3 Ml Vial.neb, 2.5 MG NEB Q4H PRN for SHORTNESS OF BREATH, (Reported) Albuterol Sulfate 1 Puff Puff, 2 PUFF IH Q4H PRN for WHEEZING 1 PUFF = 90 MCG Prescribed by: DAMARI AMEZCUA on 11/12/19 0855 Fluoxetine HCl 20 Mg Capsule, 20 MG PO DAILY, (Reported) Fluticasone/Salmeterol 1 Each Blst.w.dev, 1 EACH IH BID Prescribed by: DAMARI AMEZCUA on 11/12/19 08 Ibuprofen 200 Mg Tablet, 400-800 MG PO Q8H, (Reported) Loratadine 10 Mg Tablet, 10 MG PO DAILY Prescribed by: DAMARI AMEZCUA on 11/12/19 08 Montelukast Sodium 10 Mg Tablet, 10 MG PO DAILY Prescribed by: DAMARI AMEZCUA on 11/12/19 0855 Mv,Ca,Min/Iron Fum/FA/Vit K 1 Each Tablet, 1 EACH PO DAILY, (Reported) Prednisone 10 Mg Tab.ds.pk, 10 MG PO DAILY Take 6 tabs(60mg)daily,decrease by 1 tab(10MG)daily. Prescribed by: DAMARI AMEZCUA on 11/12/19 0855 Past Yyqismz-Lhptnp-Agaakw Hx Patient Social History Alcohol Use: Denies Use Number of Drinks Today: AA Alcohol Beverage of Choice: Beer Drug of Choice: Meth history/Opiod history Smoking Status: Never a Smoker Former Smoker, Quit: Jul 10, 2016 2nd Hand Smoke Exposure: No Recent Infectious Disease Expo: No Recent Hopitalizations: No Alcohol Use?: No Immunizations Up To Date Tetanus Booster (TDap): Unknown PED Vaccines UTD: Yes Date of Pneumonia Vaccine: Jul 18, 2019 Date of Influenza Vaccine: Jan 21, 2021 Seasonal Allergies Seasonal Allergies: No Past Medical History Surgeries: Yes Section Respiratory: Yes Asthma Cardiac: No Neurological: Yes Reproductive Disorders: Yes Female Reproductive Disorders: Denies Sexually Transmitted Disease: No HIV/AIDS: No Genitourinary: No Gastrointestinal: Yes (DURING ) Gastroesophageal Reflux, Chronic Constipation Musculoskeletal: No Endocrine: No HEENT: No (GLASSES) Loss of Vision: Denies Hearing Impairment: Denies Cancer: No Psychosocial: Yes Anxiety, Depression Integumentary: No Blood Disorders: No (ANEMIA) Adverse Reaction/Blood Tranf: No (N/A) Family Medical History Diabetes mellitus Grandparents (Maternal Grandmother) Drug abuse 19 MOTHER G8 SISTER (Recovering Heroin Addict THC) FH: ovarian cancer 19 MOTHER Grandparents (Maternal Grandmother) Fibrocystic disease of breast 19 MOTHER Grandparents (Paternal Grandmother) Psychosocial problem 19 MOTHER (Bipolar) Cancer, Diabetes Review of Systems Time Seen by Provider: 04:36 Sepsis Event Evaluation Height, Weight, BMI Height: 5'7.00" Weight: 170lbs. oz. 77.624813vd; 27.57 BMI Method:Stated Exam Exam Vital Signs Date Time Temp Pulse Resp B/P (MAP) Pulse Ox O2 Delivery O2 Flow Rate FiO2 04/17/20 04:00 95 Nasal Cannula 1.00 04/17/20 04:00 87 14 50/52 (51) 92 Nasal Cannula 1.00 04/17/20 03:00 86 14 106/52 (70) 93 Nasal Cannula 1.00 04/17/20 02:00 112 16 104/56 (72) 90 Nasal Cannula 1.00 04/17/20 01:23 97 04/17/20 01:00 91 16 110/44 (66) 90 Nasal Cannula 1.00 04/17/20 00:00 108 17 110/44 (66) 93 Nasal Cannula 1.00 04/17/20 00:00 95 Nasal Cannula 1.00 04/16/20 23:00 110 17 104/69 (81) 94 Nasal Cannula 1.00 04/16/20 22:30 Nasal Cannula 1.00 04/16/20 22:00 111 19 128/70 (89) 94 Nasal Cannula 2.00 04/16/20 21:00 113 22 132/84 (100) 94 Nasal Cannula 2.00 04/16/20 20:00 95 Nasal Cannula 2.00 04/16/20 20:00 108 16 123/71 (88) 94 Nasal Cannula 2.00 04/16/20 19:07 111 04/16/20 19:00 112 13 129/71 (90) 96 Nasal Cannula 2.00 04/16/20 18:06 127 04/16/20 18:00 118 43 136/85 (102) 95 Nasal Cannula 2.00 04/16/20 17:30 95 Nasal Cannula 2.00 04/16/20 17:15 126 14 109/78 (88) 94 Nasal Cannula 2.00 04/16/20 16:46 109 18 140/94 95 Nasal Cannula 2.00 04/16/20 15:15 94 Room Air 04/16/20 14:50 36.2 112 26 146/83 (104) 93 Room Air I & O 04/17/20 07:00 Intake Total 1200 ml Balance 1200 ml Height & Weight Height: 5'7.00" Weight: 170lbs. oz. 77.341677pi; 27.57 BMI Method:Stated Capillary Refill: Less Than 3 Seconds Gastrointestinal: normal bowel sounds, non tender, soft Results Lab Laboratory Tests 04/16/20 14:57 04/17/20 03:02 Assessment/Plan Assessment/Plan Asthma AE -Increase Duoneb to Q4 -Solumedrol -Add Advair -Repeat CXR Leukocytosis - probably from steroids ANIKA HIDALGO DO Apr 17, 2020 04:36
[2020-04-17] MEDS: CATHETER FLUSH 10 ML SYR IV SCH (05:39)
[2020-04-17] MEDS: RT-ALBUTEROL/IPRATROPIUM 3 ML (DUONEB) VIAL IH SCH ×2 (06:20→10:35)
[2020-04-17] MEDS ORDERED: ADVAIR HFA 115/21 MCG INHALER 8 GM IH SCH ×2 (08:00)
[2020-04-17] MEDS: SENNA W/DOCUSATE (SENOKOT S) TABLET PO SCH (08:03)
[2020-04-17] MEDS: ONDANSETRON 4 MG/2 ML (SDV) Z0FRAN IV PRN (08:08)
--- NOTE | 2020-04-17 08:47 | Diagnostic Imaging Report ---
INDICATION: Shortness of breath. Comparison made with prior examination 04/16/2020. FINDINGS: Heart size is normal. Lungs are clear. There is no pleural effusion or pneumothorax. Mediastinum is unremarkable. IMPRESSION: No acute cardiopulmonary abnormality. Dictated by: Dictated on workstation # [id number]
[2020-04-17] MEDS ORDERED: MONTELUKAST 10 MG (SINGULAIR) TAB PO SCH (09:00)
[2020-04-17] MEDS ORDERED: FAMOTIDINE 20MG/2ML IV (PEPCID) IV SCH (09:00)
[2020-04-17] MEDS ORDERED: LORATADINE (CLARITIN) 10 MG TAB PO SCH (09:00)
[2020-04-17] MEDS ORDERED: ALBU6.7H8 INH ×2 (11:26→12:25)
--- NOTE | 2020-04-17 11:26 | NUR ---
SPOKE WITH THE PT AND WENT THRU THE EXT MED HISTORY TO COMPLETE THE MED REC WHEN THE PT WAS PREVIOUSLY HERE (NOVEMBER 2019) SHE WAS PRESCRIBED ADVAIR 250/50, LORATADINE 10MG AND MONTELUKAST 10MG- ALL WERE 30 DAY SUPPLIES. ACCORDING TO THE PT SHE TOOK THOSE MEDICATIONS AND HASNT REFILLED THEM SINCE. I DID NOT INCLUDE ANY OF THE ABOVE MEDICATIONS SINCE THE PT HAS NOT BEEN TAKING FOR THE PAST 4 MONTHS. LYRIC DOES SAY SHE HAS AN ALBUTEROL HFA BUT IT IS ALMOST OUT AND SHE WOULD LIKE A REFILL OTC MEDS: NONE
[2020-04-17] MEDS ORDERED: PRED10TA22 PO (12:25)
[2020-04-17] MEDS ORDERED: MONT10TA97 PO (12:25)
[2020-04-17] MEDS ORDERED: ALBU1.25 INH (12:25)
[2020-04-17] MEDS ORDERED: FLUT1DIS26 IH (12:25)
[2020-04-17] MEDS ORDERED: LORA10TA7 PO (12:25)
--- NOTE | 2020-04-17 12:26 | Discharge Summary ---
Discharge Summary Hospital Course Was the Problem List Reviewed?: Yes Problems/Dx: (1) Acute respiratory failure with hypoxia Status: Acute (2) Acute asthma exacerbation Status: Acute Qualifiers: Qualified Codes: J45.901 - Unspecified asthma with (acute) exacerbation Hospital Course Date of Admission: Apr 16, 2020 at 16:15 Admission Diagnosis : Family Physician/Provider: [place] Date of Discharge: 04/17/20 Discharge Diagnosis: status asthmaticus Hospital Course: Short course after admitted for status asthmaticus and placed on steroids and Nebs and O2. Improved wheezing and less cough and hypoxia resolved and patient was found to be stable for DC. Labs and Pending Lab Test: Laboratory Tests 04/16/20 14:57: White Blood Count 11.8H, Red Blood Count 4.78, Hemoglobin 13.9, Hematocrit 41, Mean Corpuscular Volume 86, Mean Corpuscular Hemoglobin 29, Mean Corpuscular Hemoglobin Concent 34, Red Cell Distribution Width 14.3, Platelet Count 433H, Mean Platelet Volume 9.0, Immature Granulocyte % (Auto) 0, Neutrophils (%) (Auto) 42, Lymphocytes (%) (Auto) 42, Monocytes (%) (Auto) 7, Eosinophils (%) (Auto) 9, Basophils (%) (Auto) 1, Neutrophils # (Auto) 5.0, Lymphocytes # (Auto) 4.9H, Monocytes # (Auto) 0.8, Eosinophils # (Auto) 1.0H, Basophils # (Auto) 0.1, Immature Granulocyte # (Auto) 0.0, Sodium Level 139, Potassium Level 3.7, Chloride Level 103, Carbon Dioxide Level 26, Anion Gap 10, Blood Urea Nitrogen 17, Creatinine 0.74, Estimat Glomerular Filtration Rate > 60, BUN/Creatinine Ratio 23, Glucose Level 105, Calcium Level 9.4, Corrected Calcium 9.0, Magnesium Level 2.4, Total Bilirubin 0.3, Aspartate Amino Transf (AST/SGOT) 19, Alanine Aminotransferase (ALT/SGPT) 18, Alkaline Phosphatase 106, C-Reactive Protein High Sensitivity 0.20, Total Protein 7.7, Albumin 4.5, Procalcitonin 0.02, Serum Test, Qualitative NEGATIVE 04/16/20 15:01: Blood Gas Puncture Site LEFT RAD, Blood Gas Patient Temperature 36.2, Arterial Blood pH 7.36L, Arterial Blood Partial Pressure CO2 42, Arterial Blood Partial Pressure O2 163H, Arterial Blood HCO3 23, Arterial Blood Total CO2 24.4, Arterial Blood Oxygen Saturation 100, Arterial Blood Base Excess -1.8, Beau Test YES-POS, Blood Gas Ventilator Setting NO, Blood Gas Inspired Oxygen ROOM AIR 04/17/20 03:02: White Blood Count 14.7H, Red Blood Count 4.36, Hemoglobin 12.7, Hematocrit 37, Mean Corpuscular Volume 84, Mean Corpuscular Hemoglobin 29, Mean Corpuscular Hemoglobin Concent 35, Red Cell Distribution Width 14.5, Platelet Count 400, Mean Platelet Volume 9.4, Immature Granulocyte % (Auto) 1, Neutrophils (%) (Auto) 91H, Lymphocytes (%) (Auto) 7L, Monocytes (%) (Auto) 1, Eosinophils (%) (Auto) 0, Basophils (%) (Auto) 0, Neutrophils # (Auto) 13.4H, Lymphocytes # (Auto) 1.0, Monocytes # (Auto) 0.1, Eosinophils # (Auto) 0.0, Basophils # (Auto) 0.0, Immature Granulocyte # (Auto) 0.1, Sodium Level 135, Potassium Level 4.4, Chloride Level 103, Carbon Dioxide Level 19L, Anion Gap 13, Blood Urea Nitrogen 15, Creatinine 0.78, Estimat Glomerular Filtration Rate > 60, BUN/Creatinine R atio 19, Glucose Level 169H, Calcium Level 9.3, Magnesium Level 2.2, Neutrophils % (Manual) 88, Lymphocytes % (Manual) 7, Monocytes % (Manual) 1, Band Neutrophils 4, Stomatocytes SLIGHT, Phosphorus Level 3.6 Home Meds Active Albuterol Sulfate 1.25 Mg/3 Ml Vial.neb 1.25 Mg INH Q4H PRN J44.9 Advair 250-50 Diskus (Fluticasone/Salmeterol) 1 Each Blst.w.dev 1 Each IH BID Prednisone 10 Mg Tab.ds.pk 10 Mg PO DAILY Take 6 tabs(60mg)daily,decrease by 1 tab(10MG)daily. Montelukast Sodium 10 Mg Tablet 10 Mg PO DAILY Loratadine 10 Mg Tablet 10 Mg PO DAILY Proventil Hfa (Albuterol Sulfate) 6.7 Gm Hfa.aer.ad 2 Puff INH Q4H PRN Assessment/Pt Instructions [facility] 1 week Discharge Planning: <30 minutes discharge planning Discharge Instructions Discharge Diet: No Restrictions Discharge Physical Examination Vital Signs Vital Signs Date Time Temp Pulse Resp B/P (MAP) Pulse Ox O2 Delivery O2 Flow Rate FiO2 04/17/20 12:00 97 24 108/91 (97) 94 Nasal Cannula 1.00 04/17/20 07:59 37.0 General Appearance: No Apparent Distress, WD/WN, Chronically ill Respiratory: Wheezing (subtle) Cardiovascular: Regular Rate, Rhythm Neurologic/Psychiatric: Alert, Oriented x3, No Motor/Sensory Deficits, Normal Mood/Affect Allergies: Coded Allergies: No Known Drug Allergies (Unverified , 07/11/19) Discharge Summary Date of Admission Apr 16, 2020 at 16:15 Date of Discharge Discharge Date: Apr 17, 2020 Admission Diagnosis Assessment: Status asthmaticus Plan: ICU monitoring Discharge Diagnosis (1) Acute respiratory failure with hypoxia Status: Acute (2) Acute asthma exacerbation Status: Acute Qualifiers: Qualified Codes: J45.901 - Unspecified asthma with (acute) exacerbation DAMARI AMEZCUA DO Apr 17, 2020 12:25
--- NOTE | 2020-04-17 12:50 | Progress Note - Hospitalist ---
ISA FISH MED STUDENT 04/17/20 1250: Subjective HPI/CC On Admission Date Seen by Provider: Apr 17, 2020 Time Seen by Provider: 09:30 CC: Status asthmaticus HPI: This is a 30yoWF clinic patient of [facility] who has severe asthma who presents to the ER with wheezing and dyspnea in need of IV steroids and close monitoring for resp failure.Compliance with ADvair has made a great difference in the past. Subjective/Events-last exam Pt resting comfortably this morning Denies dyspnea and chest pain Reports nausea from steroids treated with Zofran Expiratory crackles noted bilaterally Pt requests refill on Advair upon discharge Objective Exam Vital Signs Vital Signs Date Time Temp Pulse Resp B/P (MAP) Pulse Ox O2 Delivery O2 Flow Rate FiO2 04/17/20 12:00 97 24 108/91 (97) 94 Nasal Cannula 1.00 04/17/20 07:59 37.0 Capillary Refill : Less Than 3 Seconds General Appearance: No Apparent Distress, WD/WN HEENT: PERRL/EOMI, Pharynx Normal, Moist Mucous Membranes Neck: Full Range of Motion, Normal Inspection, Non Tender, Supple Respiratory: Chest Non Tender, No Accessory Muscle Use, No Respiratory Distress, Rales, Wheezing (expiratory) Cardiovascular: Regular Rate, Rhythm, No Edema, No Gallop, No JVD, No Murmur, Normal Peripheral Pulses Gastrointestinal: No Pulsatile Mass, Non Tender, Soft Back: No CVA Tenderness, No Vertebral Tenderness Extremity: Normal Capillary Refill, Non Tender, No Calf Tenderness, No Pedal Edema Neurologic/Psychiatric: Alert, Oriented x3, Normal Mood/Affect Skin: Normal Color Lymphatic: No Adenopathy Results/Procedures Lab Laboratory Tests 04/16/20 14:57 04/17/20 03:02 Patient resulted labs reviewed. Assessment/Plan Assessment and Plan Assess & Plan/Chief Complaint Assessment: Status asthmaticus Plan: ICU monitoring Continue steroids at home Advair refilled and Albuterol for home use KIRSTEN AMEZCUA DO 04/17/202118: Supervisory-Addendum Brief Verification & Attestation Participated in pt care: history, MDM, physical Personally performed: exam, history, MDM, supervision of care Care discussed with: Medical Student Procedures: n/a Results interpretation: Verified all documentation Verification and Attestation of Medical Student E/M Service A medical student performed and documented this service in my presence. I reviewed and verified all information documented by the medical student and made modifications to such information, when appropriate. I personally performed the physical exam and medical decision making. Kirsten Amezcua, Apr 17, 2020,21:19 ISA FISH MED STUDENT Apr 17, 2020 12:50 KIRSTEN AMEZCUA DO Apr 17, 2020 21:19
--- NOTE | 2020-04-17 13:39 | NUR ---
Pt is Mandaeism and getting ready for discharge. Shuttle Repairer offered prayer.
[2020-04-17 13:45] VITALS: BP 146/83
[2020-04-17] MEDS ORDERED: ENOXAPARIN 40 MG/0.4 ML (LOVENOX) SYR SC SCH (21:00)
== END 2020-04-17 13:50 | disposition home or self-care (01) | DRG 189 ==
LOC: EDUNIT# 14:48 → ER 14:49 → ICU 16:15
PROVIDERS: ADMIT Internal Medicine; ATTEND Internal Medicine
DX: J96.01 Acute respiratory failure with hypoxia (principal); J45.902 Unspecified asthma with status asthmaticus; K21.9 Gastro-esophageal reflux disease without esophagitis; F41.9 Anxiety disorder, unspecified; F32.9 Major depressive disorder, single episode, unspecified; Z79.52 Long term (current) use of systemic steroids; Z81.8 Family history of other mental and behavioral disorders; Z87.891 Personal history of nicotine dependence
CPT/HCPCS: 36415; 71045; 80048; 80053; 82805; 83735; 84100; 84145; 84703; 85007; 85025; 85027; 86141; 87081; 94640; 99291

== ENCOUNTER → 2021-07-19 | Outpatient (CLI) | payer OTHER, MEDICAID ==
[~2021-07-19] MED LIST changes: +ALBU1.25 INH; +ALBU6.7H8 INH; +CLIN-144 PO; -CLIN300C12 PO; -DCS100C PO; +DOCU-239 PO; -FLUO20CA46 PO; +FLUO20CA48 PO; +LORA10TA7 PO; +MONT-40 PO
[2021-07-19 07:34] LABS: ALBUMIN 4.7 GM/DL (3.2-4.5); CHLORIDE 105 MMOL/L (98-107); POTASSIUM 4.7 MMOL/L (3.6-5.0); SODIUM 135 MMOL/L (135-145)
[2021-07-19 07:36] LABS: CALCIUM 10.1 MG/DL (8.5-10.1)
[2021-07-19 07:37] LABS: GLUCOSE 159 MG/DL (70-105); TOTAL PROTEIN 7.8 GM/DL (6.4-8.2)
[2021-07-19 07:38] LABS: BILIRUBIN,TOTAL 0.4 MG/DL (0.1-1.0); CARBON DIOXIDE 14 MMOL/L (21-32)
[2021-07-19 07:40] LABS: ALKALINE PHOSPHATASE 91 U/L (40-136); CREATININE SERUM 0.73 MG/DL (0.60-1.30); GFR ESTIMATED 112
[2021-07-19 07:41] LABS: BUN/CREATININE RATIO 10
[2021-07-19 07:43] LABS: ALANINE AMINOTRANSFERASE 11 U/L (0-55)
== END ==
LOC: LABNPT 07:05
PROVIDERS: ATTEND Internal Medicine
DX: Z01.89 Encounter for other specified special examinations (principal)
CPT/HCPCS: 80053

== ENCOUNTER → 2021-07-20 | Outpatient (CLI) | payer OTHER, MEDICAID ==
[2021-07-20 07:44] LABS: ALBUMIN 4.2 GM/DL (3.2-4.5); BILIRUBIN,TOTAL 0.3 MG/DL (0.1-1.0); CALCIUM 9.8 MG/DL (8.5-10.1); CREATININE SERUM 0.7 MG/DL (0.60-1.30); POTASSIUM 4.8 MMOL/L (3.6-5.0)
== END ==
LOC: LABNPT 07:11
PROVIDERS: ATTEND Internal Medicine
DX: Z01.89 Encounter for other specified special examinations (principal)
CPT/HCPCS: 80053